=== PATIENT | female | born 1945 | race Two or more races ===

== ENCOUNTER 2020-07-01 10:25 | Outpatient (REF) | payer MEDICARE, SELFPAY ==
[2020-07-01 11:41] LABS: Hemoglobin 12.7 g/dl (12.0-16.0); Imm Gran Abs Auto 0.01 X10*3/uL (0.00-0.03); Imm Gran Pct Auto 0.2 % (0.0-0.4); MANUAL DIFF FLAG SCAN; Mean Corpuscular HGB Conc 31.8 g/dl (31.0-35.0); SCAN SMEAR FLAG 1
[2020-07-01 11:43] LABS: Basophils Absolute Auto 0.1 X10*3/uL (0.0-0.2); Eosinophils Absolute Auto 0.1 X10*3/uL (0.0-0.4); Eosinophils Percent Auto 2.1 % (0-4); Lymphocytes Percent Auto 51.9 % (20-40); Mean Corpuscular Hemoglobin 27.7 pg (27.0-33.0); Mean Corpuscular Volume 87.1 fL (80-98); Monocytes Absolute Auto 0.3 X10*3/uL (0.1-1.2); Monocytes Percent Auto 5.9 % (2-11); Neutrophils Absolute Auto 2.2 X10*3/uL (2.0-8.3); Neutrophils Percent Auto 38.9 % (45-73); PLT CLUMP 1; Red Blood Count 4.59 X10*6/uL (4.20-5.50)
[2020-07-01 11:47] LABS: Glucose Urine UA NEG (NEG); Leukocyte Esterase Urine 1+ (NEG); Nitrite Urine NEG (NEG); Specific Gravity - Urine 1.025 (1.005-1.025); UACC Culture Trigger YES; Urine Blood NEG (NEG); Urine Ketones NEG (NEG); Urine Protein NEG (NEG-TRACE)
[2020-07-01 11:52] LABS: Appearance Urine CLEAR; Color Urine YELLOW
[2020-07-01 11:54] LABS: Alanine Aminotransferase 20 U/L (0-31); Alkaline Phosphatase 156 U/L (39-117); Anion Gap 15 (12-20); Aspartate Amino Transferase 20 U/L (5-31); Bilirubin Total 0.5 mg/dL (0.0-1.0); Blood Urea Nitrogen 16 mg/dL (9-16); Carbon Dioxide 24 mmol/L (22-29); Chloride 106 mmol/L (96-108); Cholesterol 224 mg/dL; Estimated Glomerular Filt Rate > 60; Glucose Fasting 94 mg/dL (60-99); HDL Cholesterol 66 mg/dL; LDL Cholesterol Calculated 127 mg/dl; PLT ABN DIST 1; Potassium 4.2 mmol/L (3.3-5.1); Sodium 141 mmol/L (135-145); Triglycerides 156 mg/dL
[2020-07-01 12:13] LABS: Mucus Urine 1+ /LPF; RBC Urine 0 /HPF (0); Squamous Epithelial Cell Urine 1+ /LPF
[2020-07-01 12:14] LABS: TSH reflex Free T4 1.71 uIU/mL (0.32-4.0)
[2020-07-01 12:55] LABS: Platelet Count 114 X10*3/uL (160-400)
[2020-07-01 12:56] LABS: SLIDE REVIEW VERIFIED
[2020-07-01 13:25] LABS: Erythrocyte Sedimentation Rate 10 MM/HR (0-20)
[2020-07-01 14:22] LABS: White Blood Count 5.7 X10*3/uL (4.8-10.8)
[2020-07-04 04:14] LABS: Vitamin B12 415 pg/mL (200-900)
== END 2020-07-01 10:26 | disposition home or self-care (01) ==
LOC: HO.LAB 10:25
PROVIDERS: PCP Internal Medicine; Visit Provider Internal Medicine
DX: I10 Essential (primary) hypertension (principal); E78.00 Pure hypercholesterolemia, unspecified; G30.9 Alzheimer's disease, unspecified; G50.0 Trigeminal neuralgia; E66.9 Obesity, unspecified
CPT/HCPCS: 36415; 80053; 80061; 81001; 81003; 82607; 82746; 84443; 85025; 85652; 87086

== ENCOUNTER 2021-02-09 11:09 | Outpatient (REF) | payer MEDICARE, SELFPAY | END 2021-02-09 11:10 | disposition home or self-care (01) | LOC: HO.LAB 11:09 | PROVIDERS: PCP Internal Medicine; Visit Provider Internal Medicine | DX: Z20.822 Contact with and (suspected) exposure to COVID-19 (principal) | CPT/HCPCS: U0003; U0005 ==

== ENCOUNTER 2021-04-16 10:20 | Outpatient (REF) | payer MEDICARE, SELFPAY ==
[2021-04-16 10:30] LABS: MANUAL DIFF FLAG NO
[2021-04-16 10:43] LABS: Basophils Absolute Auto 0.1 X10*3/uL (0.0-0.2); Basophils Percent Auto 1.2 % (0-2); Eosinophils Absolute Auto 0.2 X10*3/uL (0.0-0.4); Eosinophils Percent Auto 3.6 % (0-4); Hematocrit 42.2 % (37.0-47.0); Hemoglobin 13.7 g/dl (12.0-16.0); Imm Gran Abs Auto 0.01 X10*3/uL (0.00-0.03); Imm Gran Pct Auto 0.2 % (0.0-0.4); Lymphocytes Absolute Auto 2.7 X10*3/uL (1.2-4.9); Mean Corpuscular HGB Conc 32.5 g/dl (31.0-35.0); Mean Corpuscular Volume 89.2 fL (80.0-98.0); Mean Platelet Volume 10.5 fL (9.4-12.3); Monocytes Absolute Auto 0.4 X10*3/uL (0.1-1.2); Monocytes Percent Auto 7.3 % (2-11); Neutrophils Absolute Auto 1.7 x10*3/uL (2.0-8.3); Neutrophils Percent Auto 33.7 % (45-73); Platelet Count 182 X10*3/uL (160-400); Red Blood Count 4.73 X10*6/uL (4.20-5.50); Red Cell Distribution Width 15.1 % (11.0-16.0); White Blood Count 5.1 X10*3/uL (4.8-10.8)
[2021-04-16 11:15] LABS: Alanine Aminotransferase 46 U/L (0-31); Alkaline Phosphatase 225 U/L (39-117); Anion Gap 15 (12-20); Aspartate Amino Transferase 25 U/L (5-31); Bilirubin Total 0.4 mg/dL (0.0-1.0); Blood Urea Nitrogen 12 mg/dL (9-16); Calcium 9.7 mg/dL (8.4-10.2); Carbon Dioxide 27 mmol/L (22-29); Chloride 105 mmol/L (96-108); Cholesterol 258 mg/dL; Estimated Glomerular Filt Rate > 60; Glucose Fasting 112 mg/dL (60-99); HDL Cholesterol 66 mg/dL; LDL Cholesterol Calculated 158 mg/dl; Potassium 4.5 mmol/L (3.3-5.1); Sodium 142 mmol/L (135-145); Total Protein 7.1 g/dL (6.5-8.0); Triglycerides 174 mg/dL
[2021-04-16 11:28] LABS: TSH reflex Free T4 3.01 uIU/mL (0.32-4.0)
[2021-04-16 11:54] LABS: Folate 12.4 ng/mL (> or = 4.0); Vitamin B12 395 pg/mL (200-900)
[2021-04-16 12:03] LABS: Appearance Urine HAZY; Color Urine YELLOW; Glucose Urine UA NEG (NEG); Leukocyte Esterase Urine TRACE (NEG); Nitrite Urine NEG (NEG); Specific Gravity - Urine 1.025 (1.005-1.025); UACC Culture Trigger YES; Urine Blood NEG (NEG); Urine Ketones NEG (NEG); Urine Protein TRACE MG/DL (NEG-TRACE)
[2021-04-16 12:22] LABS: Squamous Epithelial Cell Urine 2+ /LPF
[2021-04-16 12:23] LABS: Bacteria Urine TRACE /LPF; Mucus Urine TRACE /LPF; RBC Urine 0 /HPF (0)
== END 2021-04-16 10:21 | disposition home or self-care (01) ==
LOC: HO.LAB 10:20
PROVIDERS: PCP Internal Medicine; Visit Provider Internal Medicine
DX: G30.9 Alzheimer's disease, unspecified (principal); F02.80 Dementia in other diseases classified elsewhere, unspecified severity, without behavioral disturbance, psychotic disturbance, mood disturbance, and anxiety; I10 Essential (primary) hypertension; J30.9 Allergic rhinitis, unspecified; R60.0 Localized edema; E78.00 Pure hypercholesterolemia, unspecified
CPT/HCPCS: 36415; 80053; 80061; 81001; 81003; 82607; 82746; 84443; 85025; 87086

== ENCOUNTER 2021-05-27 08:17 | Outpatient (REF) | payer MEDICARE, SELFPAY ==
--- NOTE | ~2021-05-27 | US_ITS ---
EXAMINATION: US ABDOMEN COMPLETE CLINICAL INFORMATION: Unspecified abdominal pain. COMPARISON: Ultrasound abdomen complete 02/07/2019 and 07/07/2017. TECHNIQUE: Real-time imaging of the abdominal viscera. FINDINGS: PANCREAS: Partially visualized body and head of the pancreas is homogeneous in echotexture. The tail of the pancreas is not seen. ABDOMINAL AORTA: Limited visualization of the abdominal aorta due to overlying gas. The distal and the mid segment is normal caliber. INFERIOR VENA CAVA: Visualized portions are normal. LIVER: The liver is normal in size. The liver contour is normal. There is increased liver echogenicity. No focal hepatic lesion. There is no intrahepatic biliary duct dilatation seen. GALLBLADDER: Surgically absent. COMMON BILE DUCT: Normal in caliber measuring 0.8 cm in diameter. RIGHT KIDNEY: Normal. No hydronephrosis. No renal calculi or focal parenchymal lesions. The kidney measures 9.3 cm in maximum dimension. LEFT KIDNEY: Normal. No hydronephrosis. No renal calculi or focal parenchymal lesions. The kidney measures 11.2 cm in maximum dimension. SPLEEN: Normal. The spleen measures 8.4 cm in maximum dimension. FREE FLUID: None. US/US abdomen complete IMPRESSION: Mild hepatic steatosis without focal lesion. Limited visualization of the pancreas reveals unremarkable body and the head of the pancreas. Similarly, the mid and the distal segment of the abdominal aorta is normal. The rest of the abdominal ultrasound is unremarkable.
== END 2021-05-27 08:18 | disposition home or self-care (01) ==
LOC: HO.US 08:17
PROVIDERS: Visit Provider Internal Medicine
DX: R10.9 Unspecified abdominal pain (principal)
CPT/HCPCS: 76700

== ENCOUNTER 2021-08-04 10:32 | Outpatient (REF) | payer MEDICARE, SELFPAY ==
[2021-08-04 10:46] LABS: MANUAL DIFF FLAG NO
[2021-08-04 11:01] LABS: Basophils Absolute Auto 0.1 X10*3/uL (0.0-0.2); Eosinophils Absolute Auto 0.3 X10*3/uL (0.0-0.4); Eosinophils Percent Auto 4.1 % (0-4); Hematocrit 40.7 % (37.0-47.0); Hemoglobin 12.9 g/dl (12.0-16.0); Imm Gran Abs Auto 0.02 X10*3/uL (0.00-0.03); Imm Gran Pct Auto 0.3 % (0.0-0.4); Lymphocytes Absolute Auto 3.1 X10*3/uL (1.2-4.9); Lymphocytes Percent Auto 50.9 % (20-40); Mean Corpuscular HGB Conc 31.7 g/dl (31.0-35.0); Mean Corpuscular Volume 88.5 fL (80.0-98.0); Mean Platelet Volume 10.6 fL (9.4-12.3); Monocytes Absolute Auto 0.3 X10*3/uL (0.1-1.2); Monocytes Percent Auto 5.1 % (2-11); Neutrophils Absolute Auto 2.3 x10*3/uL (2.0-8.3); Neutrophils Percent Auto 38.6 % (45-73); Platelet Count 200 X10*3/uL (160-400); Red Cell Distribution Width 14.5 % (11.0-16.0); White Blood Count 6.1 X10*3/uL (4.8-10.8)
[2021-08-04 11:58] LABS: Alanine Aminotransferase 53 U/L (0-31); Albumin Level 4.1 g/dL (3.5-5.0); Alkaline Phosphatase 204 U/L (39-117); Anion Gap 13 (12-20); Aspartate Amino Transferase 42 U/L (5-31); Bilirubin Total 0.4 mg/dL (0.0-1.0); Blood Urea Nitrogen 10 mg/dL (9-16); Calcium 9.5 mg/dL (8.4-10.2); Carbon Dioxide 29 mmol/L (22-29); Chloride 105 mmol/L (96-108); Cholesterol 238 mg/dL; Estimated Glomerular Filt Rate > 60; Glucose Fasting 107 mg/dL (60-99); HDL Cholesterol 65 mg/dL; LDL Cholesterol Calculated 134 mg/dl; Potassium 4.3 mmol/L (3.3-5.1); Sodium 143 mmol/L (135-145); Total Protein 7.2 g/dL (6.5-8.0); Triglycerides 198 mg/dL
[2021-08-04 12:22] LABS: TSH reflex Free T4 1.65 uIU/mL (0.32-4.0); Vitamin D 25-OH Total 24.2 ng/mL (>30)
[2021-08-04 12:41] LABS: Appearance Urine HAZY; Color Urine YELLOW; Glucose Urine UA NEG (NEG); Leukocyte Esterase Urine 2+ (NEG); Nitrite Urine NEG (NEG); Specific Gravity - Urine 1.025 (1.005-1.025); UACC Culture Trigger YES; Urine Blood TRACE (NEG); Urine Ketones NEG (NEG); Urine Protein NEG (NEG-TRACE)
[2021-08-04 12:58] LABS: Bacteria Urine 2+ /LPF; RBC Urine 0 /HPF (0); Squamous Epithelial Cell Urine 3+ /LPF
== END 2021-08-04 10:33 | disposition home or self-care (01) ==
LOC: HO.LAB 10:32
PROVIDERS: PCP Internal Medicine; Visit Provider Internal Medicine
DX: E78.00 Pure hypercholesterolemia, unspecified (principal); E55.9 Vitamin D deficiency, unspecified; I10 Essential (primary) hypertension
CPT/HCPCS: 36415; 80053; 80061; 81001; 82306; 84443; 85025; 87086

== ENCOUNTER 2021-10-26 16:01 | Outpatient (REF) | payer MEDICARE, SELFPAY ==
--- NOTE | ~2021-10-26 | MM_ITS ---
EXAMINATION: MM SCREENING DIGITAL BREAST TOMOSYNTHESIS, BILATERAL CLINICAL INFORMATION: Screening. Asymptomatic. The lifetime risk of breast cancer based on the Tyrer-Cuzick Model is 4%. COMPARISON: Mammography: 08/08/2018, 07/07/2017, 04/07/2016, 05/14/2013 TECHNIQUE: Digital breast tomosynthesis is performed in both the craniocaudal and mediolateral oblique views along with computer-aided detection (CAD). Synthesized 2D images are generated from the tomosynthesis. FINDINGS: There are scattered areas of fibroglandular density (ACR BI-RADS breast composition Category b). There is diffuse bilateral fibronodular parenchymal pattern with minor stable asymmetries, similar to prior exams. There is no developing density or architectural abnormality. No abnormal calcifications. The axilla and skin contours are unremarkable. MM/MM tomosynthesis screening BI IMPRESSION: No mammographic evidence of malignancy. ASSESSMENT: BI-RADS 2: Benign RECOMMENDATION: Routine annual mammography screening. This patient's information was entered into a reminder system with a target due date for their next mammogram.
== END 2021-10-26 16:02 | disposition home or self-care (01) ==
LOC: HO.MAMMO 16:01
PROVIDERS: PCP Internal Medicine; Visit Provider Internal Medicine
DX: Z12.31 Encounter for screening mammogram for malignant neoplasm of breast (principal)
CPT/HCPCS: 77063; 77067

== ENCOUNTER 2021-11-12 09:40 | Outpatient (REF) | payer OTHER, SELFPAY ==
[2021-11-12 10:04] LABS: MANUAL DIFF FLAG NO
[2021-11-12 10:27] LABS: Basophils Absolute Auto 0.1 X10*3/uL (0.0-0.2); Eosinophils Absolute Auto 0.1 X10*3/uL (0.0-0.4); Eosinophils Percent Auto 1.7 % (0-4); Hematocrit 39.5 % (37.0-47.0); Hemoglobin 12.6 g/dl (12.0-16.0); Imm Gran Abs Auto 0.01 X10*3/uL (0.00-0.03); Imm Gran Pct Auto 0.2 % (0.0-0.4); Lymphocytes Absolute Auto 3.1 X10*3/uL (1.2-4.9); Lymphocytes Percent Auto 59.8 % (20-40); Mean Corpuscular HGB Conc 31.9 g/dl (31.0-35.0); Mean Corpuscular Hemoglobin 28.1 pg (27.0-33.0); Mean Corpuscular Volume 88.2 fL (80.0-98.0); Mean Platelet Volume 11.7 fL (9.4-12.3); Monocytes Absolute Auto 0.3 X10*3/uL (0.1-1.2); Monocytes Percent Auto 5.9 % (2-11); Neutrophils Absolute Auto 1.6 x10*3/uL (2.0-8.3); Neutrophils Percent Auto 31.4 % (45-73); Platelet Count 164 X10*3/uL (160-400); Red Blood Count 4.48 X10*6/uL (4.20-5.50); White Blood Count 5.2 X10*3/uL (4.8-10.8)
[2021-11-12 11:08] LABS: Alanine Aminotransferase 27 U/L (0-31); Alkaline Phosphatase 171 U/L (39-117); Anion Gap 11 (12-20); Aspartate Amino Transferase 20 U/L (5-31); Bilirubin Total 0.5 mg/dL (0.0-1.0); Blood Urea Nitrogen 14 mg/dL (9-16); Calcium 9.3 mg/dL (8.4-10.2); Carbon Dioxide 27 mmol/L (22-29); Chloride 107 mmol/L (96-108); Cholesterol 256 mg/dL; Estimated Glomerular Filt Rate > 60; Glucose Fasting 111 mg/dL (60-99); HDL Cholesterol 67 mg/dL; LDL Cholesterol Calculated 156 mg/dl; Potassium 4.2 mmol/L (3.3-5.1); Sodium 141 mmol/L (135-145); Total Protein 6.8 g/dL (6.5-8.0); Triglycerides 165 mg/dL
[2021-11-12 11:35] LABS: Folate 8.9 ng/mL (> or = 4.0); Vitamin B12 274 pg/mL (200-900)
[2021-11-12 11:56] LABS: Appearance Urine HAZY; Color Urine YELLOW; Glucose Urine UA NEG (NEG); Leukocyte Esterase Urine 3+ (NEG); Nitrite Urine NEG (NEG); PH 5.5 (5.0-8.0); UACC Culture Trigger YES; Urine Blood TRACE (NEG); Urine Ketones NEG (NEG); Urine Protein NEG (NEG-TRACE)
[2021-11-12 13:19] LABS: Bacteria Urine 1+ /LPF; Squamous Epithelial Cell Urine 3+ /LPF
[2021-11-12 13:20] LABS: RBC Urine 0-2 /HPF (0)
== END 2021-11-12 09:41 | disposition home or self-care (01) ==
LOC: HO.LAB 09:40
PROVIDERS: PCP Internal Medicine; Visit Provider Internal Medicine
DX: E78.00 Pure hypercholesterolemia, unspecified (principal); E55.9 Vitamin D deficiency, unspecified; E53.8 Deficiency of other specified B group vitamins; I10 Essential (primary) hypertension
CPT/HCPCS: 36415; 80053; 80061; 81001; 81003; 82306; 82607; 82746; 85025; 87086

== ENCOUNTER 2021-12-30 19:13 | Emergency (ER) | payer OTHER, SELFPAY ==
--- NOTE | 2021-12-30 | ECG_ITS ---
Test Reason : DIZZINESS Blood Pressure : / mmHG Vent. Rate : 070 BPM Atrial Rate : 070 BPM P-R Int : 162 ms QRS Dur : 078 ms QT Int : 402 ms P-R-T Axes : 044 000 014 degrees QTc Int : 434 ms Normal sinus rhythm Normal ECG When compared with ECG of 05-FEB-2019 18:09, No significant change was found Referred By: Generic ED Physician Electronically Signed By:ROSIBEL SAINI
[2021-12-30 19:25] VITALS: BP 164/79; PULSE 72; RESP 24; TEMP 36.7; O2SAT 97; BMI 33.4
[2021-12-30 19:34] VITALS: BP 175/91; PULSE 73; O2SAT 98
[2021-12-30 20:21] VITALS: BP 166/69; PULSE 67; RESP 18; O2SAT 99
--- NOTE | 2021-12-30 20:27 | ED_ITS ---
HPI - Dizziness General Chief Complaint: Dizziness Stated Complaint: dizziness Time Seen by Provider: 12/30/21 20:26 Source: patient Mode of arrival: ambulatory Limitations: no limitations History of Present Illness HPI Narrative: Patient is 76 years old history of asthma hypertension trigeminal neuralgia followed by Neurology [facility] had MRI on 12/24 of the brain which was negative comes here for sudden onset of dizziness for last 4 days got worse yesterday so started suddenly with head movement feeling and off balance with nausea and ringing in the right ear patient vomited once yesterday no focal weakness no dysarthria or diplopia patient never had similar complaints in the past. patient also complaining of frequency no flank pain or abdominal pain for last few days Related Data Home Medications Medication Instructions Recorded Confirmed rosuvastatin 5 mg tablet 5 mg PO DAILY 04/09/20 11/10/21 miscellaneous medical supply ea miscellaneous 10/27/21 11/10/21 miscellaneous medical supply ea miscellaneous 10/27/21 11/10/21 Previous Rx's Medication Instructions Recorded ezetimibe 10 mg tablet 10 mg PO DAILY 90 days #90 tabs 02/12/21 omeprazole 20 mg capsule,delayed 20 mg PO DAILY 90 days #90 caps 02/12/21 release oxybutynin chloride 10 mg 10 mg PO DAILY 90 days #90 tabs 02/12/21 tablet,extended release 24 hr metoprolol tartrate 25 mg tablet 25 mg PO BID 30 days #60 tabs 03/23/21 albuterol sulfate 90 mcg/actuation 2 puff inhalation Q6H PRN 09/03/21 aerosol inhaler shortness of breath or wheezing #8.5 grams cyclobenzaprine 5 mg tablet 5 mg PO TID muscle spasms/ TMJ 09/03/21 pain 30 days #90 tabs fluticasone propionate 50 1 spray intranasal DAILY #15.8 mL 11/10/21 mcg/actuation nasal spray,suspension BACK BRACE #1 ea 11/13/21 QUAD CANE #1 ea 11/13/21 aspirin 81 mg tablet,delayed 81 mg PO DAILY #28 tabs 11/18/21 release cetirizine 10 mg tablet 10 mg PO DAILY #28 tabs 11/18/21 cholecalciferol (vitamin D3) 25 25 mcg PO DAILY #28 tabs 11/18/21 mcg (1,000 unit) tablet gabapentin 400 mg capsule 400 mg PO TID #84 caps 11/18/21 hydrochlorothiazide 25 mg tablet 25 mg PO DAILY #28 tabs 11/18/21 losartan 50 mg tablet 75 mg PO DAILY #42 tabs 11/18/21 carbamazepine 200 mg tablet 200 mg PO BID #56 tabs 12/19/21 cefuroxime axetil 500 mg tablet 500 mg PO BID 7 days #14 tabs 12/30/21 meclizine 25 mg tablet 25 mg PO TID PRN dizziness #20 tabs 12/30/21 Allergies Allergy/AdvReac Type Severity Reaction Status Date / Time aspirin AdvReac Unknown stomach Verified 11/10/21 16:41 upset atorvastatin AdvReac Unknown significantly Verified 11/10/21 16:41 elevated LFTs Review of Systems Review of Systems: Yes all other systems are reviewed and are negative [facility] Past Medical History Medical History Allergic rhinitis Alzheimer's dementia Asthma Benign essential hypertension Bilateral lower extremity edema Obesity (BMI 30-39.9) Pure hypercholesterolemia Trigeminal neuralgia Surgical History History of arthroplasty of left knee History of arthroplasty of right knee History of bladder surgery History of cholecystectomy History of surgery History of tubal ligation Family History Family History Father Asthma Mother Colon cancer Sister Breast cancer Social History Social History Housing: Apartment Alcohol intake: never Patient Tobacco Use Status: Never used Tobacco Second Hand Smoke Exposure: Yes Advance Directives: No Advance Directives Information Provided: No service: No Current occupational status: disabled Cognitive needs: No Hearing needs: No Vision needs: Yes Physical Exam Vital Signs: Vital Signs: Last Vital Signs Temp 98.0 F 12/30/21 22:49 Pulse 70 12/30/21 22:49 Resp 20 12/30/21 22:49 BP 162/77 H 12/30/21 22:49 Pulse Ox 96 12/30/21 22:49 O2 Del Method 12/30/21 22:49 BMI result Body Mass Index 33.4 Appearance: Alert. Oriented X3. No acute distress. Eyes: PERRLA, No Nystagmus ENT: Pharynx normal. Oral Mucosa moist Neck: Normal inspection. Neck supple. CVS: Normal heart rate and rhythm. Pulses normal. Respiratory: No respiratory distress. Equal air entry bilateral, no wheezing/rales/rhonchi Abdomen: Soft and nontender. Bowel sounds are present, no mass palpable, no CVA tenderness Skin: Skin warm and dry. Normal skin color. Normal skin turgor. Extremities: No lower extremity edema. No calf tenderness Neuro: Oriented X 3. No motor deficit. No sensory deficit.No cerebellar signs , cranial nerves II-XII intact MDM - Dizziness MDM Narrative Medical decision making narrative: Patient's recent MRI negative symptoms a vertiginous feeling without any d ysarthria or diplopia or focal neurological deficit likely benign positional vertigo patient does have tinnitus also also patient has frequency workup showed UTI discharge patient home on Ceftin meclizine patient felt better after medications he was able to ambulate in the ER without significant imb alance/attacks Differential Diagnosis Differential diagnosis: Likely benign paroxysmal positional vertigo Lab Data Attestation: I reviewed the patient's lab results. Result diagrams: 12/30/21 21:14 12/30/21 21:14 Labs: Lab Results 12/30/21 12/30/21 12/30/21 Range/Units 20:23 21:14 21:14 WBC 6.1 (4.8-10.8) X10*3/uL RBC 4.58 (4.20-5.50) X10*6/uL Hgb 12.7 (12.0-16.0) g/dl Hct 39.5 (37.0-47.0) % MCV 86.2 (80.0-98.0) fL MCH 27.7 (27.0-33.0) pg MCHC 32.2 (31.0-35.0) g/dl RDW 14.7 (11.0-16.0) % Plt Count 178 (160-400) X10*3/uL MPV 11.2 (9.4-12.3) fL Immature Gran % (Auto) 0.2 (0.0-0.4) % Neut % (Auto) 42.3 L (45-73) % Lymph % (Auto) 48.6 H (20-40) % [place] % (Auto) 6.6 (2-11) % Eos % (Auto) 1.5 (0-4) % Baso % (Auto) 0.8 (0-2) % Lymph # (Auto) 3.0 (1.2-4.9) X10*3/uL [place] # (Auto) 0.4 (0.1-1.2) X10*3/uL Eos # (Auto) 0.1 (0.0-0.4) X10*3/uL Baso # (Auto) 0.1 (0.0-0.2) X10*3/uL Abs Immat Gran (auto) 0.01 (0.00-0.03) X10*3/uL Absolute Neuts (auto) 2.6 (2.0-8.3) x10*3/uL Absolute Nucleated RBC 0.000 (0.0-0.012) X10*3/uL Nucleated RBC % (auto) 0.0 (0.0-0.2) /100WBC Sodium 143 (135-145) mmol/L Potassium 4.0 (3.3-5.1) mmol/L Chloride 104 (96-108) mmol/L Carbon Dioxide 29 (22-29) mmol/L Anion Gap 14 (12-20) BUN 15 (9-16) mg/dL Creatinine 0.92 (0.5-1.4) mg/dL Estim Creat Clear Calc 58.1 Estimated GFR 59 Random Glucose 110 (60-115) mg/dL Calcium 9.4 (8.4-10.2) mg/dL Total Bilirubin 0.3 (0.0-1.0) mg/dL AST 17 (5-31) U/L ALT 15 (0-31) U/L Alkaline Phosphatase 144 H (39-117) U/L Total Protein 6.9 (6.5-8.0) g/dL Albumin 4.0 (3.5-5.0) g/dL Urine Color Yellow Urine Appearance Clear Urine pH 7.5 (5.0-8.0) Ur Specific [place] 1.010 (1.005-1.025) Urine Protein Negative (Neg-Trace) mg/dL Urine Glucose (UA) Negative (Negative) mg/dL Urine Ketones Negative (Negative) mg/dL Urine Blood Negative (Negative) Urine Nitrite Negative (Negative) Ur Leukocyte Esterase Moderate (2+) H (Negative) Urine RBC 0-2 (0-2) /HPF Urine WBC 6-10 H (0-5) /HPF Ur Squamous Epith Cells 3-5 (0-2) /HPF Urine Bacteria Trace (None Seen) Hyaline Casts 0-2 (0-2) /LPF ECG Data Attestation: I personally reviewed and interpreted this ECG as follows: Interpretation: Normal sinus rhythm heart rate 70 beats per minute normal intervals normal axis no acute ST-T changes Discharge Plan Discharge Clinical Impression: Benign paroxysmal positional vertigo, UTI (urinary tract infection) Patient Disposition: Home, Self-Care Instructions: Urinary Tract Infection in Women (ED), Benign Paroxysmal Posit ional Vertigo (ED) Additional Instructions: Drink plenty of fluids Take medication for dizziness as prescribed Care and cautious as advised Antibiotic for urinary tract infection Follow-up with PCP Beber mucho l?quido [place] la medicaci?n para los mareos seg?n lo prescrito Cuidado y cautela norma se recomienda Antibi?shana para la infecci?n del tracto urinario Seguimiento con PCP Prescriptions: New cefuroxime axetil 500 mg tablet 500 mg PO BID 7 Days Qty: 14 0RF meclizine 25 mg tablet 25 mg PO TID PRN (Reason: dizziness) Qty: 20 0RF No Action ezetimibe 10 mg tablet 10 mg PO DAILY 90 Days Qty: 90 3RF omeprazole 20 mg capsule,delayed release(DR/EC) 20 mg PO DAILY 90 Days Qty: 90 5RF oxybutynin chloride 10 mg tablet extended release 24hr 10 mg PO DAILY 90 Days Qty: 90 3RF metoprolol tartrate 25 mg tablet 25 mg PO BID 30 Days Qty: 60 12RF miscellaneous medical supply Misc miscellaneous Rx Instructions: Quad Cane miscellaneous medical supply Misc miscellaneous Rx Instructions: Back Brace (DME) BACK BRACE See Rx Instructions .Route .MEDSUPPLY Qty: 1 0RF Rx Instructions: As directed (DME) QUAD CANE See Rx Instructions .Route .MEDSUPPLY Qty: 1 0RF Rx Instructions: As directed cholecalciferol (vitamin D3) 25 mcg (1,000 unit) tablet 25 mcg PO DAILY Qty: 28 2RF hydrochlorothiazide 25 mg tablet 25 mg PO DAILY Qty: 28 2RF aspirin 81 mg tablet,delayed release (DR/EC) 81 mg PO DAILY Qty: 28 2RF cetirizine 10 mg tablet 10 mg PO DAILY Qty: 28 2RF losartan 50 mg tablet 75 mg PO DAILY Qty: 42 2RF gabapentin 400 mg capsule 400 mg PO TID Qty: 84 2RF carbamazepine 200 mg tablet 200 mg PO BID Qty: 56 1RF rosuvastatin 5 mg tablet 5 mg PO DAILY fluticasone propionate 50 mcg/actuation spray,suspension 1 spray intranasal DAILY Qty: 15.8 3RF Rx Instructions: administer into each nostril albuterol sulfate 90 mcg/actuation HFA aerosol inhaler 2 puff inhalation Q6H PRN (Reason: shortness of breath or wheezing) Qty: 8.5 1RF cyclobenzaprine 5 mg tablet 5 mg PO TID 30 Days Qty: 90 0RF Print Language: German
[2021-12-30 20:33] LABS: Appearance Urine Clear; Color Urine Yellow; Glucose Urine UA Negative (Negative); Leukocyte Esterase Urine Moderate (2+) (Negative); Nitrite Urine Negative (Negative); PH 7.5 (5.0-8.0); Urine Blood Negative (Negative); Urine Ketones Negative (Negative); Urine Protein Negative (Neg-Trace)
[2021-12-30 20:43] LABS: UACC Culture Trigger YES
[2021-12-30 20:44] LABS: Bacteria Urine Trace (None Seen); Hyaline Casts Urine 0-2 /LPF (0-2); RBC Urine 0-2 /HPF (0-2)
[2021-12-30] MEDS: Meclizine HCl 25 MG TABLET 50 MG PO (21:16)
[2021-12-30] MEDS: LORazepam 1 MG TABLET PO (21:17)
[2021-12-30 21:19] LABS: MANUAL DIFF FLAG NO
[2021-12-30 21:20] LABS: Basophils Absolute Auto 0.1 X10*3/uL (0.0-0.2); Basophils Percent Auto 0.8 % (0-2); Eosinophils Absolute Auto 0.1 X10*3/uL (0.0-0.4); Eosinophils Percent Auto 1.5 % (0-4); Hematocrit 39.5 % (37.0-47.0); Hemoglobin 12.7 g/dl (12.0-16.0); Imm Gran Abs Auto 0.01 X10*3/uL (0.00-0.03); Imm Gran Pct Auto 0.2 % (0.0-0.4); Lymphocytes Percent Auto 48.6 % (20-40); Mean Corpuscular HGB Conc 32.2 g/dl (31.0-35.0); Mean Corpuscular Hemoglobin 27.7 pg (27.0-33.0); Mean Corpuscular Volume 86.2 fL (80.0-98.0); Mean Platelet Volume 11.2 fL (9.4-12.3); Monocytes Absolute Auto 0.4 X10*3/uL (0.1-1.2); Monocytes Percent Auto 6.6 % (2-11); Neutrophils Absolute Auto 2.6 x10*3/uL (2.0-8.3); Neutrophils Percent Auto 42.3 % (45-73); Platelet Count 178 X10*3/uL (160-400); Red Blood Count 4.58 X10*6/uL (4.20-5.50); Red Cell Distribution Width 14.7 % (11.0-16.0); White Blood Count 6.1 X10*3/uL (4.8-10.8)
[2021-12-30 21:53] LABS: Alanine Aminotransferase 15 U/L (0-31); Alkaline Phosphatase 144 U/L (39-117); Anion Gap 14 (12-20); Aspartate Amino Transferase 17 U/L (5-31); Bilirubin Total 0.3 mg/dL (0.0-1.0); Blood Urea Nitrogen 15 mg/dL (9-16); Calcium 9.4 mg/dL (8.4-10.2); Carbon Dioxide 29 mmol/L (22-29); Chloride 104 mmol/L (96-108); Creatinine Clr Calc Pharmacy 58.1; Estimated Glomerular Filt Rate 59; Glucose Random 110 mg/dL (60-115); Sodium 143 mmol/L (135-145); Total Protein 6.9 g/dL (6.5-8.0)
[2021-12-30 22:49] VITALS: BP 162/77; PULSE 70; RESP 20; TEMP 36.7; O2SAT 96
[2021-12-30 23:19] VITALS: BP 161/86; PULSE 67; RESP 23; O2SAT 96
== END 2021-12-30 23:37 | disposition home or self-care (01) ==
PROVIDERS: Emergency Provider Internal Medicine; PCP Internal Medicine
DX: H81.13 Benign paroxysmal vertigo, bilateral (principal); N39.0 Urinary tract infection, site not specified; Z79.899 Other long term (current) drug therapy
CPT/HCPCS: 36415; 80053; 81001; 85025; 87086; 93005; 99283; 99284

== ENCOUNTER 2022-02-08 11:37 | Outpatient (REF) | payer OTHER, SELFPAY ==
[2022-02-08 11:57] LABS: MANUAL DIFF FLAG NO
[2022-02-08 12:21] LABS: Basophils Absolute Auto 0.1 X10*3/uL (0.0-0.2); Basophils Percent Auto 0.9 % (0-2); Eosinophils Absolute Auto 0.2 X10*3/uL (0.0-0.4); Eosinophils Percent Auto 2.7 % (0-4); Hematocrit 40.7 % (37.0-47.0); Hemoglobin 13.2 g/dl (12.0-16.0); Imm Gran Abs Auto 0.01 X10*3/uL (0.00-0.03); Imm Gran Pct Auto 0.2 % (0.0-0.4); Lymphocytes Absolute Auto 2.8 X10*3/uL (1.2-4.9); Lymphocytes Percent Auto 48.8 % (20-40); Mean Corpuscular HGB Conc 32.4 g/dl (31.0-35.0); Mean Corpuscular Hemoglobin 28.1 pg (27.0-33.0); Mean Corpuscular Volume 86.6 fL (80.0-98.0); Monocytes Absolute Auto 0.3 X10*3/uL (0.1-1.2); Monocytes Percent Auto 4.6 % (2-11); Neutrophils Absolute Auto 2.4 x10*3/uL (2.0-8.3); Neutrophils Percent Auto 42.8 % (45-73); White Blood Count 5.7 X10*3/uL (4.8-10.8)
[2022-02-08 12:48] LABS: Alanine Aminotransferase 26 U/L (0-31); Albumin Level 4.2 g/dL (3.5-5.0); Alkaline Phosphatase 163 U/L (39-117); Anion Gap 17 (12-20); Aspartate Amino Transferase 25 U/L (5-31); Bilirubin Total 0.3 mg/dL (0.0-1.0); Blood Urea Nitrogen 16 mg/dL (9-16); Calcium 9.6 mg/dL (8.4-10.2); Carbon Dioxide 24 mmol/L (22-29); Chloride 104 mmol/L (96-108); Cholesterol 237 mg/dL; Estimated Average Glucose 126 mg/dL; Estimated Glomerular Filt Rate > 60; Glucose Fasting 107 mg/dL (60-99); HDL Cholesterol 71 mg/dL; LDL Cholesterol Calculated 141 mg/dl; Potassium 4.4 mmol/L (3.3-5.1); Sodium 141 mmol/L (135-145); Total Protein 7.2 g/dL (6.5-8.0); Triglycerides 127 mg/dL
[2022-02-08 13:09] LABS: TSH reflex Free T4 1.59 uIU/mL (0.32-4.0); Vitamin D 25-OH Total 28.5 ng/mL (>30)
[2022-02-08 13:17] LABS: Mean Platelet Volume 12.2 fL (9.4-12.3); Platelet Count 168 X10*3/uL (160-400)
[2022-02-08 13:37] LABS: Appearance Urine Cloudy; Color Urine Dark Yellow; Glucose Urine UA Negative (Negative); Leukocyte Esterase Urine Moderate (2+) (Negative); Nitrite Urine Negative (Negative); PH 5.5 (5.0-9.0); Specific Gravity - Urine 1.025 (1.005-1.025); UMIC TRIGGER UACC YES; Urine Blood Negative (Negative); Urine Ketones Trace mg/dL (Negative); Urine Protein Trace mg/dL (Neg-Trace)
[2022-02-08 13:47] LABS: Bacteria Urine 1+ (None Seen); Hyaline Casts Urine 0-2 /LPF (0-2); Squamous Epithelial Cell Urine >20 /HPF (0-2); UACC Culture Trigger YES; WBC Urine 21-50 /HPF (0-5)
== END 2022-02-08 11:38 | disposition home or self-care (01) ==
LOC: HO.LAB 11:37
PROVIDERS: PCP Internal Medicine; Visit Provider Internal Medicine
DX: E78.00 Pure hypercholesterolemia, unspecified (principal); E11.9 Type 2 diabetes mellitus without complications; E55.9 Vitamin D deficiency, unspecified; I10 Essential (primary) hypertension
CPT/HCPCS: 36415; 80053; 80061; 81001; 82306; 83036; 84443; 85025; 87086

== ENCOUNTER 2022-06-03 09:52 | Outpatient (REF) | payer OTHER, SELFPAY ==
[2022-06-03 10:05] LABS: MANUAL DIFF FLAG NO
[2022-06-03 10:36] LABS: Appearance Urine Cloudy; Color Urine Yellow; Glucose Urine UA Negative (Negative); Leukocyte Esterase Urine Moderate (2+) (Negative); Nitrite Urine Negative (Negative); PH 5.5 (5.0-9.0); Specific Gravity - Urine 1.025 (1.005-1.025); UMIC TRIGGER UACC YES; Urine Blood Trace (Negative); Urine Ketones Negative (Negative); Urine Protein Trace mg/dL (Neg-Trace)
[2022-06-03 10:40] LABS: Basophils Absolute Auto 0.1 X10*3/uL (0.0-0.2); Basophils Percent Auto 0.8 % (0-2); Eosinophils Absolute Auto 0.3 X10*3/uL (0.0-0.4); Eosinophils Percent Auto 4.7 % (0-4); Hematocrit 39.1 % (37.0-47.0); Hemoglobin 12.5 g/dl (12.0-16.0); Imm Gran Abs Auto 0.01 X10*3/uL (0.00-0.03); Imm Gran Pct Auto 0.2 % (0.0-0.4); Lymphocytes Percent Auto 48.1 % (20-40); Mean Corpuscular Hemoglobin 27.6 pg (27.0-33.0); Mean Corpuscular Volume 86.3 fL (80.0-98.0); Monocytes Absolute Auto 0.3 X10*3/uL (0.1-1.2); Monocytes Percent Auto 5.5 % (2-11); Neutrophils Absolute Auto 2.5 x10*3/uL (2.0-8.3); Neutrophils Percent Auto 40.7 % (45-73); Platelet Count 155 X10*3/uL (160-400); Red Blood Count 4.53 X10*6/uL (4.20-5.50); Red Cell Distribution Width 14.5 % (11.0-16.0); White Blood Count 6.1 X10*3/uL (4.8-10.8)
[2022-06-03 10:40] LABS: Bacteria Urine 1+ (None Seen); Hyaline Casts Urine 0-2 /LPF (0-2); UACC Culture Trigger YES; WBC Urine >50 /HPF (0-5)
[2022-06-03 11:13] LABS: Estimated Average Glucose 120 mg/dL; Hemoglobin A1c % 5.8 %
[2022-06-03 11:23] LABS: Alanine Aminotransferase 17 U/L (0-31); Albumin Level 4.1 g/dL (3.5-5.0); Alkaline Phosphatase 136 U/L (39-117); Anion Gap 13 (12-20); Aspartate Amino Transferase 18 U/L (5-31); Bilirubin Total 0.5 mg/dL (0.0-1.0); Blood Urea Nitrogen 17 mg/dL (9-16); Calcium 9.6 mg/dL (8.4-10.2); Carbon Dioxide 25 mmol/L (22-29); Chloride 106 mmol/L (96-108); Cholesterol 201 mg/dL; Estimated Glomerular Filt Rate > 60; Glucose Fasting 101 mg/dL (60-99); HDL Cholesterol 67 mg/dL; LDL Cholesterol Calculated 117 mg/dl; Potassium 3.9 mmol/L (3.3-5.1); Sodium 140 mmol/L (135-145); Total Protein 6.9 g/dL (6.5-8.0); Triglycerides 85 mg/dL
[2022-06-03 11:47] LABS: TSH reflex Free T4 3.03 uIU/mL (0.32-4.0); Vitamin D 25-OH Total 28.3 ng/mL (>30)
== END 2022-06-03 09:53 | disposition home or self-care (01) ==
LOC: HO.LAB 09:52
PROVIDERS: PCP Internal Medicine; Visit Provider Internal Medicine
DX: E55.9 Vitamin D deficiency, unspecified (principal); R30.0 Dysuria; E78.00 Pure hypercholesterolemia, unspecified; E11.9 Type 2 diabetes mellitus without complications; I10 Essential (primary) hypertension
CPT/HCPCS: 36415; 80053; 80061; 81001; 82306; 83036; 84443; 85025; 87086

== ENCOUNTER 2022-12-07 10:48 | Outpatient (REF) | payer OTHER, SELFPAY ==
[2022-12-07 11:14] LABS: MANUAL DIFF FLAG NO
[2022-12-07 11:48] LABS: Appearance Urine Cloudy; Color Urine Yellow; Glucose Urine UA Negative (Negative); Leukocyte Esterase Urine Moderate (2+) (Negative); Nitrite Urine Negative (Negative); PH 5.5 (5.0-9.0); Specific Gravity - Urine 1.025 (1.005-1.025); UMIC TRIGGER UACC YES; Urine Blood Negative (Negative); Urine Ketones Negative (Negative); Urine Protein Negative (Neg-Trace)
[2022-12-07 11:50] LABS: Basophils Absolute Auto 0.1 X10*3/uL (0.0-0.2); Basophils Percent Auto 1.1 % (0-2); Eosinophils Absolute Auto 0.2 X10*3/uL (0.0-0.4); Eosinophils Percent Auto 4.4 % (0-4); Hematocrit 39.7 % (37.0-47.0); Hemoglobin 12.5 g/dl (12.0-16.0); Imm Gran Abs Auto 0.02 X10*3/uL (0.00-0.03); Imm Gran Pct Auto 0.4 % (0.0-0.4); Lymphocytes Absolute Auto 2.7 X10*3/uL (1.2-4.9); Lymphocytes Percent Auto 51.7 % (20-40); Mean Corpuscular HGB Conc 31.5 g/dl (31.0-35.0); Mean Corpuscular Volume 88.8 fL (80.0-98.0); Mean Platelet Volume 12.1 fL (9.4-12.3); Monocytes Absolute Auto 0.3 X10*3/uL (0.1-1.2); Monocytes Percent Auto 5.1 % (2-11); Neutrophils Percent Auto 37.3 % (45-73); Platelet Count 147 X10*3/uL (160-400); Red Blood Count 4.47 X10*6/uL (4.20-5.50); Red Cell Distribution Width 14.8 % (11.0-16.0); White Blood Count 5.3 X10*3/uL (4.8-10.8)
[2022-12-07 11:57] LABS: Estimated Average Glucose 117 mg/dL; Hemoglobin A1c % 5.7 %
[2022-12-07 12:51] LABS: Bacteria Urine 1+ (None Seen); Hyaline Casts Urine 0-2 /LPF (0-2); UACC Culture Trigger YES; WBC Urine 21-50 /HPF (0-5)
[2022-12-07 13:02] LABS: Alanine Aminotransferase 22 U/L (0-31); Albumin Level 3.9 g/dL (3.5-5.0); Alkaline Phosphatase 137 U/L (39-117); Anion Gap 17 (12-20); Aspartate Amino Transferase 19 U/L (5-31); Bilirubin Total 0.4 mg/dL (0.0-1.0); Blood Urea Nitrogen 15 mg/dL (9-16); Calcium 9.7 mg/dL (8.4-10.2); Carbon Dioxide 22 mmol/L (22-29); Chloride 108 mmol/L (96-108); Cholesterol 211 mg/dL; Estimated Glomerular Filt Rate > 60; Glucose Fasting 98 mg/dL (60-99); HDL Cholesterol 67 mg/dL; LDL Cholesterol Calculated 120 mg/dl; Potassium 3.8 mmol/L (3.3-5.1); Sodium 143 mmol/L (135-145); Total Protein 7.1 g/dL (6.5-8.0); Triglycerides 122 mg/dL
[2022-12-07 13:04] LABS: TSH reflex Free T4 2.04 uIU/mL (0.32-4.0); Vitamin D 25-OH Total 30.8 ng/mL (>30)
[2022-12-07 13:14] LABS: Folate 8.9 ng/mL (> or = 4.0); Vitamin B12 499 pg/mL (200-900)
== END 2022-12-07 10:49 | disposition home or self-care (01) ==
LOC: HO.LAB 10:48
PROVIDERS: PCP Internal Medicine; Visit Provider Internal Medicine
DX: I10 Essential (primary) hypertension (principal); E53.8 Deficiency of other specified B group vitamins; R73.01 Impaired fasting glucose; E55.9 Vitamin D deficiency, unspecified; E78.00 Pure hypercholesterolemia, unspecified; R30.0 Dysuria
CPT/HCPCS: 36415; 80053; 80061; 81001; 82306; 82607; 82746; 83036; 84443; 85025; 87086

== ENCOUNTER 2022-12-16 09:50 | Outpatient (AMB) | payer OTHER, SELFPAY ==
[2022-12-16 09:51] VITALS: BP 160/90; PULSE 66; O2SAT 99; BMI 31.6
--- NOTE | 2022-12-16 09:51 | MHC.PC.OV ---
Vital Signs 12/16/22 09:51 12/16/22 10:48 Height 5 ft 6 in Weight 196 lb 0.4 oz BMI 31.6 BP 160/90 H 162/86 H Blood Pressure Location Lt brachial Lt brachial Position Sitting Sitting Pulse 66 Pulse Source Pulse Oximeter Temp Source Skin Pulse Oximetry (%) 99 Oxygen Delivery Method Room Air Intake Visit Reasons: Physical Exam Intake Note: Patient is here today for a physical. Table Assembler Required: Yes Table Assembler Language: Russian Allergies aspirin Adverse Reaction (Unknown, Verified 12/16/22 10:26) stomach upset atorvastatin Adverse Reaction (Unknown, Verified 12/16/22 10:26) significantly elevated LFTs Medication List - Last Reconciled 12/16/22 by DIVYA Thompson albuterol sulfate 90 mcg/actuation 2 puffs inhalation Q6H PRN aspirin 81 mg PO DAILY [BACK BRACE As directed] carbamazepine 200 mg PO BID 30 days cetirizine 10 mg PO DAILY cholecalciferol (vitamin D3) 25 mcg PO DAILY cyclobenzaprine 5 mg PO TID PRN 30 days ezetimibe 10 mg PO DAILY 90 days fluticasone propionate 50 mcg/actuation 1 spray intranasal DAILY hydrochlorothiazide 25 mg PO DAILY losartan 75 mg (1.5 x 50 mg) PO DAILY meclizine 25 mg PO TID PRN metoprolol tartrate 25 mg PO BID 30 days miscellaneous medical supply Back Brace miscellaneous medical supply Quad Cane omeprazole 20 mg PO DAILY 90 days oxybutynin chloride ER 10 mg PO DAILY 90 days [QUAD CANE As directed] rosuvastatin 5 mg PO DAILY 90 days Tobacco use date assessed: 12/16/22 Fall risk assessment: 1 Fall in past year Last assessed Fall Risk: 12/16/22 Dental Screening Dental Screen Date: 12/16/22 Did you have a dental visit in the last 12 months?: No Did you have a dental problem in the last 6 months where you did not have access to dental care?: No HPI Physical Exam HPI Details Patient is a 77-year-old female who presents today for physical exam. Patient of Dr. Aleman. Medical history significant for hypertension, trigeminal neurology-followed by Neurology in [place] and [place]-reports two procedures on left-sided head within past year, hypercholesterolemia, asthma, Alzheimer's dementia, obesity. Today we discussed patient's need for mammogram and bone density screening. Up-to-date with immunizations. Patient will call for an eye exam. Blood pressure elevated in the office today, patient reports she did not take her blood pressure medications yet, reports normal blood pressures at home. No shortness of breath or chest pain in the office. In addition, patient reports that her son 3 years ago and she thinks about this, declined referral for counseling. In addition, patient reports right upper quadrant poking sensation for long time now which is constant, reports history of gallbladder surgery about 20 years ago, recent blood work with no acute findings. Patient is a Russian-speaking and Alondra was helping with interpretation. [facility] Medical History Allergic rhinitis Alzheimer's dementia Asthma Benign essential hypertension Bilateral lower extremity edema Obesity (BMI 30-39.9) Pure hypercholesterolemia Trigeminal neuralgia Surgical History History of arthroplasty of left knee History of arthroplasty of right knee History of bladder surgery History of cholecystectomy History of surgery History of tubal ligation Family History Father Asthma Mother Colon cancer Sister Breast cancer Social History Housing: Apartment Alcohol intake: never Patient Tobacco Use Status: Never used Tobacco Second Hand Smoke Exposure: Yes service: No Current occupational status: disabled Cognitive needs: No Hearing needs: No Vision needs: Yes Questionnaire PHQ-9 Over the last 2 weeks, how often have you been bothered by any of the following problems? 1. Little interest or pleasure in doing things: several days 2. Feeling down, depressed, or hopeless: several days 3. Trouble falling or staying asleep, or sleeping too much: not at all 4. Feeling tired or having little energy: not at all 5. Poor appetite or overeating: not at all 6. Feeling bad about yourself - or that you are a failure or have let yourself or your family down: not at all 7. Trouble concentrating on things, such as reading the newspaper or watching television: not at all 8. Moving or speaking so slowly that other people could have noticed. Or the opposite - being so fidgety or restless that you have been moving around a lot more than usual: not at all 9. Thoughts that you would be better off or of hurting yourself in some way: not at all Total score: 2 Depression Screening Interpretation: Negative 68323 - PHQ-9 Billing: Yes Source: Developed by Drs. Terence Ring, Maci Colunga, Abraham Infante and colleagues, with an educational vernon from [employer]. Thrive Questionnaire Date Thrive assessed: 08/23/22 AUDIT C Alcohol Use Questionnaire (AUDIT-C) 1. How often do you have a drink containing alcohol?: Never 3. How often do you have six or more drinks on one occasion?: Never Total Score: 0 Score Reviewed/Action Taken: No SUSHIL-7 AMB Questionnaire SUSHIL-7 Date SUSHIL - 7 assessed: 12/16/22 Feeling nervous, anxious, or on edge: 1 = Several days Not being able to stop or control worryin = Several days Worrying too much about different things: 0 = Not at all Trouble relaxin = Not at all Being so restless that it is hard to sit still: 0 = Not at all Becoming easily annoyed or irritable: 0 = Not at all Feeling afraid as if something awful might happen: 0 = Not at all Total SUSHIL-7 score (0-4 normal; 5-9 mild; 10-14 moderate; 15-21 severe): 2 Source: Developed by Drs. Terence Ring, Maci Colunga, Abraham Infante and colleagues, with an educational vernon from [employer]. SUSHIL-7 Assessment Billing SUSHIL-7 Assessment Tool: SUSHIL-7 Assessment 18489 Review of Systems Const Denies body aches, Denies chills, Denies fever(s) and Reports headache(s) Eyes Denies change in vision ENT Denies dizziness, Denies otalgia, Reports headache(s), Denies nasal discharge, Denies sinus pain and Denies sore throat Card Denies chest pain, Denies edema, Denies lightheadedness and Denies dyspnea Resp Denies cough, Denies dyspnea and Denies wheezing GI Reports as per HPI, Reports abdominal pain, Denies constipation, Denies diarrhea, Denies nausea and Denies vomiting Denies dysuria Musc Denies myalgias Skin/Breast Denies rash Neuro Denies dizziness and Reports headache(s) Aller/Immun Denies wheezing Physical exam (Primary Care) Vital Signs: Last Vital Signs Pulse 66 12/16/22 09:51 BP 160/90 H 12/16/22 09:51 Pulse Ox 99 12/16/22 09:51 Oxygen Delivery Method Room Air 12/16/22 09:51 BMI result Body Mass Index 31.6 Tobacco/Smoking Status: Tobacco use Status Tobacco use date assessed 12/16/22 12/16/22 09:52 Patient Tobacco Use Status Never used Tobacco 12/16/22 09:52 PHQ-9: PHQ-9 Score PHQ-9: Total score 2 12/16/22 10:16 Depression Screening Interpretation: Negative Thrive Assessment: Date of Thrive Assessment Date Thrive assessed 08/23/22 12/16/22 09:52 Const General: cooperative and no acute distress Orientation/consciousness: patient oriented x3 HENMT Head: Yes normocephalic and Yes atraumatic Ears: TM's normal bilaterally Face and sinus: Yes sinuses nontender Mouth: oropharynx normal and moist mucous membranes Throat: Yes posterior oropharynx normal Eyes General: appearance normal, both eyes and all related structures Pupils: Equal, round and reactive pupils present EOM: EOMs intact bilaterally Neck Neck: Yes normal visual inspection, Yes full ROM and Yes no lymphadenopathy Thyroid: Thyroid normal Resp Effort & Inspection: normal respiratory effort and able to speak in complete sentences Auscultation: clear to auscultation bilaterally, no crackles, no rales, no rhonchi and no wheezes Cardio Rate: regular rate Rhythm: regular rhythm Heart sounds: S1 normal heart sound present, S2 normal heart sound present and no murmurs GI Other: Right upper quadrant healed scar, patient reports this is after having gallbladder surgery Palpation (GI): Soft to palpation, not firm, Tenderness to palpation present (GI) in the RUQ; Felix's sign negative and with no rebound tenderness, no guarding, not rigid and no hepatosplenomegaly Auscultation: normal bowel sounds Abdomen image: 1. Tender to palpation, skin is intact, surgical scar healed noted General: No CVA tenderness Back/Spine/Pelvis Back: No CVA tenderness Skin General skin exam: no rashes or lesions noted Neuro General: patient oriented x3 Cranial nerves: Yes Equal, round and reactive pupils present Gait exam (Neuro): Normal gait present Extrem General: Yes full ROM and No edema Assessment and Plan Assessment & Plan (1) RUQ pain: Code(s): R10.11 - Right upper quadrant pain Plan: Patient reports right upper quadrant poking sensation for very long time now, will obtain ultrasound to rule out hernia and assess liver. Recent blood work with no acute findings. Physical exam with right upper quadrant tenderness, no rebound tenderness. (2) Post-menopausal: Code(s): Z78.0 - Asymptomatic menopausal state (3) Screening for breast cancer: Code(s): Z12.39 - Encounter for other screening for malignant neoplasm of breast (4) Impaired fasting glucose: Code(s): R73.01 - Impaired fasting glucose Plan: A1c 5.7 12/2022 (5) Physical exam: Code(s): Z00.00 - Encounter for general adult medical examination without abnormal findings Plan: Repeat in 1 year (6) Obesity (BMI 30-39.9): Code(s): E66.9 - Obesity, unspecified Plan: Healthy food choices and exercise as tolerated (7) Asthma: Code(s): J45.909 - Unspecified asthma, uncomplicated Qualifiers: Asthma severity: mild Asthma persistence: intermittent Asthma complication type: uncomplicated Qualified Code(s): J45.20 - Mild intermittent asthma, uncomplicated Plan: Patient reports that she was recently sick with cold, her symptoms are improving, asthma is stable Continue albuterol inhaler p.r.n. (8) Pure hypercholesterolemia: Code(s): E78.00 - Pure hypercholesterolemia, unspecified Plan: LDL 120 12/2022 Continue rosuvastatin and Zetia Low-cholesterol diet (9) Trigeminal neuralgia: Comment: S/P percutaneous retrogasserian glycerol rhizotomy x 2, with only partial and temporary relief Code(s): G50.0 - Trigeminal neuralgia Plan: Continue to follow-up with Neurology in [facility] Patient is on carbamazepine b.i.d. and cyclobenzaprine t.i.d. p.r.n. Patient reports that she stopped taking gabapentin due to not feeling well on gabapentin (10) Benign essential hypertension: Code(s): I10 - Essential (primary) hypertension Plan: Goal BP equal or less than 140/90 Blood pressure elevated in the office today, patient reports she did not take her blood pressure medications this morning yet, reports normal blood pressures at home. Denies shortness of breath or chest pain in the office today Patient is to continue hydrochlorothiazide, losartan, metoprolol Continue to monitor blood pressures at home, notify provider if blood pressures consistently over 140/90 Low-sodium diet Plan Follow-up with PCP in 3 months or sooner as needed Orders: Orders XR DEXA axial skeleton Today Z78.0 - Asymptomatic menopausal state MM tomosynthesis screening BI Today Z12.31 - Encounter for screening mammogram for malignant neoplasm of breast, Z12.39 - Encounter for other screening for malignant neoplasm of breast US abdomen limited Today R10.11 - Right upper quadrant pain Coding Level of Care Code Est Pt Prev Care >65y(79689) Diagnoses RUQ pain R10.11 Post-menopausal Z78.0 Screening for breast cancer Z12.39 Impaired fasting glucose R73.01 Physical exam Z00.00 Obesity (BMI 30-39.9) E66.9 Asthma J45.20 Asthma severity: mild Asthma persistence: intermittent Asthma complication type: uncomplicated Pure hypercholesterolemia E78.00 Trigeminal neuralgia G50.0 Benign essential hypertension I10 Additional Codes SUSHIL-7 Assessment Billing - SUSHIL-7 Assessment Tool: SUSHIL-7 Assessment [id number] ([id number])
[2022-12-16 10:48] VITALS: BP 162/86
== END 2022-12-16 10:59 | disposition home or self-care (01) ==
PROVIDERS: Visit Provider Nurse Practitioner Family
DX: Z00.00 Encounter for general adult medical examination without abnormal findings (principal); J45.20 Mild intermittent asthma, uncomplicated; I10 Essential (primary) hypertension; R73.01 Impaired fasting glucose; R10.11 Right upper quadrant pain; Z78.0 Asymptomatic menopausal state; E66.9 Obesity, unspecified; E78.00 Pure hypercholesterolemia, unspecified; G50.0 Trigeminal neuralgia
CPT/HCPCS: 99397

== ENCOUNTER 2023-01-05 11:23 | Emergency (ER) | payer OTHER, SELFPAY ==
--- NOTE | ~2023-01-05 | CT_ITS ---
EXAMINATION: CT HEAD WITHOUT CONTRAST CLINICAL INFORMATION: Vertigo. COMPARISON: CT scan of the head dated 02/05/2019. TECHNIQUE: Contiguous axial imaging was performed from the skull base to vertex without intravenous administration of contrast. Coronal and sagittal reformatted images were obtained. This CT examination was performed using dose optimization techniques as appropriate, variously including the following: *Automated exposure control *Adjustment of mA and/or kV according to patient size (this includes techniques or standardized protocols for targeted exams where dose is matched to indication/reason for exam; i.e. extremities or head) *Use of iterative reconstruction technique DLP: 657 mGy-cm FINDINGS: There is mild widening of the cortical sulci and associated ventriculomegaly. The lateral ventricles are symmetrical. The third and fourth ventricles are in their normal midline position. The basilar and prepontine cisterns are unremarkable. Mild periventricular microvascular changes are seen. There is no acute intra or extracerebral abnormality. There is no mass effect or midline shift. Sections through the bony calvarium are unremarkable. The orbits are intact. The paranasal sinuses are clear. The mastoid air cells are clear. CT/CT head/brain wo IV con IMPRESSION: No acute intracranial pathology.
[2023-01-05 11:25] VITALS: BP 154/82; PULSE 83; RESP 19; TEMP 36.6; O2SAT 98; BMI 31.8
--- NOTE | 2023-01-05 11:26 | ED.GENADULT ---
HPI - General Adult General Chief complaint: Dizziness Stated complaint: Outpatient response Time Seen by Provider: 01/05/23 14:59 History of Present Illness HPI narrative: PATIENT IS A 77-YEAR-OLD FEMALE PRESENTS TODAY WITH HAVING SPINNING SENSATION. Patient was getting outpatient radiology studies done. When she felt very dizzy. Spinning. There has been no change in her medication. There is no fever no chills. There is no chest pain or diaphoresis. No nausea no vomiting. Positive history of similar symptoms. It is made worse with movement. Denies any pain on urination. Denies any coughing congestion upper respiratory symptoms. No fever no chills. No chest pain. She is from home. Denies noticing any blood in the stool. Related Data Home Medications Medication Instructions Recorded Confirmed miscellaneous medical supply ea miscellaneous 10/27/21 12/16/22 miscellaneous medical supply ea miscellaneous 10/27/21 12/16/22 Previous Rx's Medication Instructions Recorded BACK BRACE #1 ea 11/13/21 QUAD CANE #1 ea 11/13/21 meclizine 25 mg tablet 25 mg PO TID PRN dizziness #20 tabs 12/30/21 metoprolol tartrate 25 mg tablet 25 mg PO BID 30 days #60 tabs 02/13/22 ezetimibe 10 mg tablet 10 mg PO DAILY 90 days #90 tabs 02/15/22 cyclobenzaprine 5 mg tablet 5 mg PO TID PRN muscle spasms/ TMJ 09/17/22 pain 30 days #90 tabs aspirin 81 mg tablet,delayed 81 mg PO DAILY #28 tabs 10/20/22 release carbamazepine 200 mg tablet 200 mg PO BID 30 days #60 tabs 10/20/22 cetirizine 10 mg tablet 10 mg PO DAILY #28 tabs 10/20/22 cholecalciferol (vitamin D3) 25 25 mcg PO DAILY #28 tabs 10/20/22 mcg (1,000 unit) tablet hydrochlorothiazide 25 mg tablet 25 mg PO DAILY #28 tabs 10/20/22 losartan 50 mg tablet 75 mg PO DAILY #42 tabs 10/20/22 albuterol sulfate 90 mcg/actuation 2 puff inhalation Q6H PRN 11/16/22 aerosol inhaler shortness of breath or wheezing #8.5 grams fluticasone propionate 50 1 spray intranasal DAILY #15.8 mL 11/16/22 mcg/actuation nasal spray,suspension omeprazole 20 mg capsule,delayed 20 mg PO DAILY 90 days #90 caps 12/15/22 release oxybutynin chloride 10 mg 10 mg PO DAILY 90 days #90 tabs 12/15/22 tablet,extended release 24 hr rosuvastatin 5 mg tablet 5 mg PO DAILY 90 days #90 tabs 12/15/22 Allergies Allergy/AdvReac Type Severity Reaction Status Date / Time aspirin AdvReac Unknown stomach Verified 01/05/23 11:28 upset atorvastatin AdvReac Unknown significantly Verified 01/05/23 11:28 elevated LFTs Review of Systems Review of Systems: Positive generalized malaise Yes all other systems are reviewed and are negative [facility] Past Medical History Attestation statement: The following information was validated with the patient. Medical History Allergic rhinitis Alzheimer's dementia Asthma Benign essential hypertension Bilateral lower extremity edema Obesity (BMI 30-39.9) Pure hypercholesterolemia Trigeminal neuralgia Surgical History History of arthroplasty of left knee History of arthroplasty of right knee History of bladder surgery History of cholecystectomy History of surgery History of tubal ligation Family History Family History Father Asthma Mother Colon cancer Sister Breast cancer Social History Social History Housing: Apartment Alcohol intake: never Patient Tobacco Use Status: Never used Tobacco Smoked in Last 30 Days: No Second Hand Smoke Exposure: Yes Use of substances other than those prescribed or required for medical reasons: No Advance Directives: No Advance Directives Information Provided: No service: No Current occupational status: disabled Cognitive needs: No Hearing needs: No Vision needs: Yes Physical Exam ED Vital Signs: Vital Signs - 24 hr 01/05/23 11:25 01/05/23 14:52 01/05/23 16:00 Temperature 98 F 97.6 F Pulse Rate 83 66 Respiratory Rate 19 18 16 Blood Pressure 154/82 H 173/75 H Pulse Oximetry 98 94 Oxygen Delivery Method Room Air Room Air BMI result Body Mass Index 31.8 Appearance: Alert. Oriented X3. No acute distress. Eyes: Pupils equal, round and reactive to light. ENT: Pharynx normal. Neck: Normal inspection. Neck supple. No lymph nodes noted. No crepitus CVS: Normal heart rate and rhythm. Pulses normal. Normal S1 and S2 Respiratory: No respiratory distress. Breath sounds normal. No Wheezing. No rales Abdomen: Soft and nontender. No rigidity. No distention. good BS x4 Skin: Skin warm and dry. Normal skin color. Normal skin turgor. Extremities: No lower extremity edema. Neurovascular intact to all extremities. No Lacerations. No Rash Neuro: Oriented X 3. No motor deficit. No sensory deficit. Moving all extermities. No slurred speech. Cranial nerve 2-12 intact. Rapid alternating movement grossly intact. Course Course Course Narrative: This is an RME: Additional HPI, ROS, PE not included below will be deferred to primary provider. This is a 11-gsbu-szm-female, with a hx of asthma, dementia, hypertension, trigeminal neuralgia, presenting to the ER with complaints of nausea and dizziness since this morning. States the dizziness is constant, has been present upon wakening this morning. Hx of vertigo, unable to determine if this feels similar to vertigo she has had in the past. Plan: Labs, EKG Medical Decision Making Medical Decision Making [facility] Narrative: Patient well-appearing. Was coming to the hospital for radiologic studies. Subsequently felt lightheaded while getting the study. Sent to the emergency department for further evaluation. Patient claims she had spinning sensation question vertigo. No chest pain associated with these symptoms. CT scan of the head was negative for any acute evidence of bleeding. No mass noted. Patient's urine showed no signs of infection. White count was normal. Hemoglobin is 12.8 there is no evidence for anemia. Symptoms completely resolved. Will discharge patient home. Lab Data [facility] Lab Attestation statement: I reviewed the patient's lab results. 01/05/23 11:51 01/05/23 11:51 Labs: Lab Results 01/05/23 01/05/23 01/05/23 Range/Units 11:51 11:51 11:51 WBC 9.5 (4.8-10.8) X10*3/uL RBC 4.55 (4.20-5.50) X10*6/uL Hgb 12.8 (12.0-16.0) g/dl Hct 39.4 (37.0-47.0) % MCV 86.6 (80.0-98.0) fL MCH 28.1 (27.0-33.0) pg MCHC 32.5 (31.0-35.0) g/dl RDW 14.6 (11.0-16.0) % Plt Count 161 (160-400) X10*3/uL MPV 10.9 (9.4-12.3) fL Immature Gran % (Auto) 0.3 (0.0-0.4) % Neut % (Auto) 73.0 (45-73) % Lymph % (Auto) 20.8 (20-40) % [place] % (Auto) 4.2 (2-11) % Eos % (Auto) 1.3 (0-4) % Baso % (Auto) 0.4 (0-2) % Lymph # (Auto) 2.0 (1.2-4.9) X10*3/uL [place] # (Auto) 0.4 (0.1-1.2) X10*3/uL Eos # (Auto) 0.1 (0.0-0.4) X10*3/uL Baso # (Auto) 0.0 (0.0-0.2) X10*3/uL Abs Immat Gran (auto) 0.03 (0.00-0.03) X10*3/uL Absolute Neuts (auto) 6.9 (2.0-8.3) x10*3/uL Absolute Nucleated RBC 0.000 (0.0-0.012) X10*3/uL Nucleated RBC % (auto) 0.0 (0.0-0.2) /100WBC Sodium 142 (135-145) mmol/L Potassium 3.7 (3.3-5.1) mmol/L Chloride 109 H (96-108) mmol/L Carbon Dioxide 25 (22-29) mmol/L Anion Gap 12 (12-20) BUN 18 H (9-16) mg/dL Creatinine 0.80 (0.5-1.4) mg/dL Estim Creat Clear Calc 64.2 Estimated GFR > 60 Random Glucose 110 (60-115) mg/dL Calcium 9.8 (8.4-10.2) mg/dL Total Bilirubin 0.4 (0.0-1.0) mg/dL Direct Bilirubin 0.2 (0.0-0.5) mg/dL AST 19 (5-31) U/L ALT 16 (0-31) U/L Alkaline Phosphatase 129 H (39-117) U/L Troponin I High Sens < 2.7 (<3.5-17.0) ng/L Total Protein 7.3 (6.5-8.0) g/dL Albumin 4.1 (3.5-5.0) g/dL Urine Color Urine Appearance Urine pH (5.0-9.0) Ur Specific [place] (1.005-1.025) Urine Protein (Neg-Trace) mg/dL Urine Glucose (UA) (Negative) mg/dL Urine Ketones (Negative) mg/dL Urine Blood (Negative) Urine Nitrite (Negative) Ur Leukocyte Esterase (Negative) Urine RBC (0-2) /HPF Urine WBC (0-5) /HPF Ur Squamous Epith Cells (0-2) /HPF Urine Bacteria (None Seen) Hyaline Casts (0-2) /LPF 01/05/23 01/05/23 Range/Units 16:18 18:09 WBC (4.8-10.8) X10*3/uL RBC (4.20-5.50) X10*6/uL Hgb (12.0-16.0) g/dl Hct (37.0-47.0) % MCV (80.0-98.0) fL MCH (27.0-33.0) pg MCHC (31.0-35.0) g/dl RDW (11.0-16.0) % Plt Count (160-400) X10*3/uL MPV (9.4-12.3) fL Immature Gran % (Auto) (0.0-0.4) % Neut % (Auto) (45-73) % Lymph % (Auto) (20-40) % [place] % (Auto) (2-11) % Eos % (Auto) (0-4) % Baso % (Auto) (0-2) % Lymph # (Auto) (1.2-4.9) X10*3/uL [place] # (Auto) (0.1-1.2) X10*3/uL Eos # (Auto) (0.0-0.4) X10*3/uL Baso # (Auto) (0.0-0.2) X10*3/uL Abs Immat Gran (auto) (0.00-0.03) X10*3/uL Absolute Neuts (auto) (2.0-8.3) x10*3/uL Absolute Nucleated RBC (0.0-0.012) X10*3/uL Nucleated RBC % (auto) (0.0-0.2) /100WBC Sodium (135-145) mmol/L Potassium (3.3-5.1) mmol/L Chloride (96-108) mmol/L Carbon Dioxide (22-29) mmol/L Anion Gap (12-20) BUN (9-16) mg/dL Creatinine (0.5-1.4) mg/dL Estim Creat Clear Calc Estimated GFR Random Glucose (60-115) mg/dL Calcium (8.4-10.2) mg/dL Total Bilirubin (0.0-1.0) mg/dL Direct Bilirubin (0.0-0.5) mg/dL AST (5-31) U/L ALT (0-31) U/L Alkaline Phosphatase (39-117) U/L Troponin I High Sens < 2.7 (<3.5-17.0) ng/L Total Protein (6.5-8.0) g/dL Albumin (3.5-5.0) g/dL Urine Color Yellow Urine Appearance Clear Urine pH 6.0 (5.0-9.0) Ur Specific [place] 1.015 (1.005-1.025) Urine Protein Negative (Neg-Trace) mg/dL Urine Glucose (UA) Negative (Negative) mg/dL Urine Ketones Negative (Negative) mg/dL Urine Blood Negative (Negative) Urine Nitrite Negative (Negative) Ur Leukocyte Esterase Trace H (Negative) Urine RBC 0-2 (0-2) /HPF Urine WBC 0-5 (0-5) /HPF Ur Squamous Epith Cells 0-2 (0-2) /HPF Urine Bacteria None Seen (None Seen) Hyaline Casts 0-2 (0-2) /LPF Independent Interpretation I performed an independent interpretation of an: EKG (My interpretation patient's EKG showed a sinus rhythm heart rate is 80 NC QRS QTC within normal limits no gross ST segment elevation noted.) and CT Scan (CT scan of the head was negative for any acute evidence of bleeding) Radiology Impression Discussion of test interpretation with radiology: I have reviewed the radiologist's reading. External Record Review External record reviewed: Office record Discharge Plan Discharge Clinical Impression: Dizziness Patient Disposition: Home, Self-Care Instructions: Dizziness (ED) Prescriptions: No Action miscellaneous medical supply Misc miscellaneous Rx Instructions: Quad Cane miscellaneous medical supply Misc miscellaneous Rx Instructions: Back Brace (DME) BACK BRACE See Rx Instructions .Route .MEDSUPPLY Qty: 1 0RF Rx Instructions: As directed (DME) QUAD CANE See Rx Instructions .Route .MEDSUPPLY Qty: 1 0RF Rx Instructions: As directed metoprolol tartrate 25 mg tablet 25 mg PO BID 30 Days Qty: 60 12RF cyclobenzaprine 5 mg tablet 5 mg PO TID PRN (Reason: muscle spasms/ TMJ pain) 30 Days Qty: 90 0RF cholecalciferol (vitamin D3) 25 mcg (1,000 unit) tablet 25 mcg PO DAILY Qty: 28 2RF hydrochlorothiazide 25 mg tablet 25 mg PO DAILY Qty: 28 2RF losartan 50 mg tablet 75 mg PO DAILY Qty: 42 2RF aspirin 81 mg tablet,delayed release (DR/EC) 81 mg PO DAILY Qty: 28 12RF cetirizine 10 mg tablet 10 mg PO DAILY Qty: 28 5RF carbamazepine 200 mg tablet 200 mg PO BID 30 Days Qty: 60 2RF albuterol sulfate 90 mcg/actuation HFA aerosol inhaler 2 puff inhalation Q6H PRN (Reason: shortness of breath or wheezing) Qty: 8.5 1RF fluticasone propionate 50 mcg/actuation spray,suspension 1 spray intranasal DAILY Qty: 15.8 3RF Rx Instructions: administer into each nostril omeprazole 20 mg capsule,delayed release(DR/EC) 20 mg PO DAILY 90 Days Qty: 90 3RF oxybutynin chloride 10 mg tablet extended release 24hr 10 mg PO DAILY 90 Days Qty: 90 3RF rosuvastatin 5 mg tablet 5 mg PO DAILY 90 Days Qty: 90 3RF meclizine 25 mg tablet 25 mg PO TID PRN (Reason: dizziness) Qty: 20 0RF ezetimibe 10 mg tablet 10 mg PO DAILY 90 Days Qty: 90 3RF Referrals: Kenyetta Woo FNP [Primary Care Provider] - 01/07/23
--- NOTE | 2023-01-05 11:29 | ECG_ITS ---
Test Reason : weakness Blood Pressure : / mmHG Vent. Rate : 080 BPM Atrial Rate : 080 BPM P-R Int : 156 ms QRS Dur : 080 ms QT Int : 384 ms P-R-T Axes : 004 -22 -16 degrees QTc Int : 442 ms Normal sinus rhythm Nonspecific T wave abnormality Abnormal ECG When compared with ECG of 30-DEC-2021 19:19, Nonspecific T wave abnormality, worse in Inferior leads Nonspecific T wave abnormality now evident in Lateral leads Referred By: Michelle Helton Electronically Signed By:ROSIBEL SAINI
[2023-01-05 11:56] LABS: MANUAL DIFF FLAG NO
[2023-01-05 12:00] LABS: Basophils Percent Auto 0.4 % (0-2); Eosinophils Absolute Auto 0.1 X10*3/uL (0.0-0.4); Eosinophils Percent Auto 1.3 % (0-4); Hematocrit 39.4 % (37.0-47.0); Hemoglobin 12.8 g/dl (12.0-16.0); Imm Gran Abs Auto 0.03 X10*3/uL (0.00-0.03); Imm Gran Pct Auto 0.3 % (0.0-0.4); Lymphocytes Percent Auto 20.8 % (20-40); Mean Corpuscular HGB Conc 32.5 g/dl (31.0-35.0); Mean Corpuscular Hemoglobin 28.1 pg (27.0-33.0); Mean Corpuscular Volume 86.6 fL (80.0-98.0); Mean Platelet Volume 10.9 fL (9.4-12.3); Monocytes Absolute Auto 0.4 X10*3/uL (0.1-1.2); Monocytes Percent Auto 4.2 % (2-11); Neutrophils Absolute Auto 6.9 x10*3/uL (2.0-8.3); Platelet Count 161 X10*3/uL (160-400); Red Blood Count 4.55 X10*6/uL (4.20-5.50); Red Cell Distribution Width 14.6 % (11.0-16.0); White Blood Count 9.5 X10*3/uL (4.8-10.8)
[2023-01-05 12:11] LABS: Alanine Aminotransferase 16 U/L (0-31); Albumin Level 4.1 g/dL (3.5-5.0); Alkaline Phosphatase 129 U/L (39-117); Anion Gap 12 (12-20); Aspartate Amino Transferase 19 U/L (5-31); Bilirubin Direct 0.2 mg/dL (0.0-0.5); Bilirubin Total 0.4 mg/dL (0.0-1.0); Blood Urea Nitrogen 18 mg/dL (9-16); Calcium 9.8 mg/dL (8.4-10.2); Carbon Dioxide 25 mmol/L (22-29); Chloride 109 mmol/L (96-108); Creatinine Clr Calc Pharmacy 64.2; Estimated Glomerular Filt Rate > 60; Glucose Random 110 mg/dL (60-115); Potassium 3.7 mmol/L (3.3-5.1); Sodium 142 mmol/L (135-145); Total Protein 7.3 g/dL (6.5-8.0)
[2023-01-05 12:20] LABS: Troponin-I High Sensitivity < 2.7 ng/L (<3.5-17.0)
[2023-01-05 14:52] VITALS: BP 173/75; PULSE 66; RESP 18; TEMP 36.4; O2SAT 94
[2023-01-05 16:00] VITALS: RESP 16
[2023-01-05 16:58] LABS: Troponin-I High Sensitivity < 2.7 ng/L (<3.5-17.0)
[2023-01-05 18:20] LABS: Appearance Urine Clear; Color Urine Yellow; Glucose Urine UA Negative (Negative); Leukocyte Esterase Urine Trace (Negative); Nitrite Urine Negative (Negative); Specific Gravity - Urine 1.015 (1.005-1.025); UMIC TRIGGER UACC YES; Urine Blood Negative (Negative); Urine Ketones Negative (Negative); Urine Protein Negative (Neg-Trace)
[2023-01-05 18:25] LABS: Bacteria Urine None Seen (None Seen); Hyaline Casts Urine 0-2 /LPF (0-2); RBC Urine 0-2 /HPF (0-2); Squamous Epithelial Cell Urine 0-2 /HPF (0-2); WBC Urine 0-5 /HPF (0-5)
--- NOTE | 2023-01-05 19:26 | PC.NURSE ---
Pt given food per request and okay. To be ambulated shortly
[2023-01-05 20:00] VITALS: BP 191/85; PULSE 64; RESP 16; TEMP 36.8; O2SAT 97
--- NOTE | 2023-01-05 20:00 | PC.NURSE ---
Dr. Cardenas notified of patient's BP 191/85. Patient denies headache/dizziness, no new orders at this time, patient to continue taking home BP meds, monitor BP at home, and schedule a f/u appointment with PCP in 2 days. Patient verbalized understanding.
== END 2023-01-05 20:07 | disposition home or self-care (01) ==
PROVIDERS: Physician Assistant Medical; Emergency Provider Emergency Medicine Emergency Medical Services; PCP Nurse Practitioner Family
DX: R42 Dizziness and giddiness (principal); I10 Essential (primary) hypertension; E78.00 Pure hypercholesterolemia, unspecified; E66.9 Obesity, unspecified; Z68.31 Body mass index [BMI] 31.0-31.9, adult
CPT/HCPCS: 36415; 70450; 80048; 80076; 81001; 84484; 85025; 93005; 99284; 99285

== ENCOUNTER 2023-01-18 15:25 | Outpatient (AMB) | payer OTHER, SELFPAY ==
--- NOTE | 2023-01-18 15:26 | A.OFFPC_ITS ---
Vital Signs 01/18/23 15:27 Height 5 ft 6 in Weight 187 lb BMI 30.2 BP 140/78 H Blood Pressure Location Lt brachial Position Sitting Intake Visit Reasons: No appetite-medication Intake Note: Patient here c/o blood pressure, headaches causing trouble eating, seen at [facility] 01/05/23 high blood pressure, dizziness Slitter And Rewinder Required: No Accompanied by: Grand Child Allergies aspirin Adverse Reaction (Unknown, Verified 01/18/23 16:00) stomach upset atorvastatin Adverse Reaction (Unknown, Verified 01/18/23 16:00) significantly elevated LFTs Medication List - Last Reconciled 01/18/23 by Cisco Aleman MD albuterol sulfate 90 mcg/actuation 2 puffs inhalation Q6H PRN aspirin 81 mg PO DAILY [BACK BRACE As directed] carbamazepine 200 mg PO BID 30 days cetirizine 10 mg PO DAILY cholecalciferol (vitamin D3) 25 mcg PO DAILY cyclobenzaprine 5 mg PO TID PRN 30 days ezetimibe 10 mg PO DAILY 90 days fluticasone propionate 50 mcg/actuation 1 spray intranasal DAILY hydrochlorothiazide 25 mg PO DAILY losartan 75 mg (1.5 x 50 mg) PO DAILY meclizine 25 mg PO TID PRN metoprolol tartrate 25 mg PO BID 30 days miscellaneous medical supply Back Brace miscellaneous medical supply Quad Cane omeprazole 20 mg PO DAILY 90 days oxybutynin chloride ER 10 mg PO DAILY 90 days [QUAD CANE As directed] rosuvastatin 5 mg PO DAILY 90 days Tobacco use date assessed: 12/16/22 Fall risk assessment: 1 Fall in past year Last assessed Fall Risk: 01/18/23 Dental Screening Dental Screen Date: 01/18/23 Did you have a dental visit in the last 12 months?: No Did you have a dental problem in the last 6 months where you did not have access to dental care?: No Was dental information given to patient?: Patient has dentist HPI No appetite-medication HPI Details Patient comes in today for her follow up visit States that she has been experiencing recurrent dizziness and headaches for the past couple of weeks Reports (+) recurrent and sometimes sharp pains over her forehead area and her family feels that her headaches are affecting her appetite and she has not been eating much lately and has lost some weight as a result Recalls that she was brought to the ER a couple of weeks ago for further evaluation and when she suddenly developed increased dizziness while she was at the hospital getting some imaging tests done at the time Her blood pressure was noted to be elevated when she was first examined She also ended up getting some labs as well as an EKG and a head CT done, all of which came back negative/normal She was advised to continue taking her Meclizine as needed for her dizziness and to follow up with her PCP WILLY She denies any chest pains, no SOB No nausea/vomiting, no abdominal pain No change in bowel habits noted Had some follow up labs done a few weeks ago - to discuss her results [facility] Medical History Obesity (BMI 30-39.9) Alzheimer's dementia Asthma Allergic rhinitis Bilateral lower extremity edema Pure hypercholesterolemia Trigeminal neuralgia Benign essential hypertension Surgical History History of surgery History of bladder surgery History of arthroplasty of left knee History of arthroplasty of right knee History of tubal ligation History of cholecystectomy Family History Father Asthma Mother Colon cancer Sister Breast cancer Social History Housing: Apartment Alcohol intake: never Patient Tobacco Use Status: Never used Tobacco e-Cigarette/Vaping Use: Never Used Second Hand Smoke Exposure: Yes service: No Current occupational status: disabled Cognitive needs: No Hearing needs: No Vision needs: Yes Questionnaire Thrive Questionnaire Date Thrive assessed: 08/23/22 SUSHIL-7 AMB Questionnaire SUSHIL-7 Date SUSHIL - 7 assessed: 12/16/22 Source: Developed by Drs. Terence Ring, Maci Colunga, Abraham Infante and colleagues, with an educational vernon from [employer]. Review of Systems Const Reports fatigue, Denies fever(s), Reports headache(s) (recurrent), Reports poor appetite and Reports weight loss (lately) ENT Denies dysphagia, Reports dizziness (on and off lately), Denies otalgia, Reports facial pain (occasionally on the left side, leona around the left jaw area), Reports headache(s) (recurrent), Denies neck pain, Denies odynophagia and Denies sore throat Card Denies chest pain, Denies palpitations and Denies dyspnea Resp Denies cough, Denies dyspnea and Denies wheezing GI Denies abdominal pain, Denies constipation, Denies dysphagia, Denies heartburn, Denies diarrhea, Denies nausea, Denies odynophagia and Denies vomiting Denies difficulty voiding, Denies nocturia and Denies dysuria Musc Denies neck pain Neuro Denies behavioral changes, Reports dizziness (on and off lately), Reports headache(s) (recurrent) and Reports memory loss (stable) Psych Denies behavioral changes and Reports memory loss (stable) Endo Reports fatigue and Denies palpitations Aller/Immun Denies wheezing Physical exam (Primary Care) Vital Signs: Last Vital Signs BP 140/78 H 01/18/23 15:27 BMI result Body Mass Index 30.2 Tobacco/Smoking Status: Tobacco use Status Tobacco use date assessed 12/16/22 01/18/23 15:34 Patient Tobacco Use Status Never used Tobacco 01/18/23 15:34 e-Cigarette/Vaping Use Never Used 01/18/23 15:34 Thrive Assessment: Date of Thrive Assessment Date Thrive assessed 08/23/22 01/18/23 15:34 Const General: no acute distress and alert HENMT Ears: TM's normal bilaterally and EAC's normal Mouth: abnormal TMJ ((+) mild numbness over the left jaw & TMJ area on palpation) Throat: Yes posterior oropharynx normal and Yes tonsils normal (no TP congestion noted) Neck Neck: Yes no lymphadenopathy and Yes supple Resp Auscultation: clear to auscultation bilaterally, no rales and no wheezes Cardio Rate: regular rate Rhythm: regular rhythm Heart sounds: no murmurs GI Palpation (GI): Soft to palpation, nontender, no guarding and not rigid Auscultation: normal bowel sounds Extrem General: Yes no clubbing, cyanosis or edema Assessment and Plan Assessment & Plan (1) Trigeminal neuralgia: Comment: S/P percutaneous retrogasserian glycerol rhizotomy x 2, with only partial and temporary relief Code(s): G50.0 - Trigeminal neuralgia Plan: Left-sided - patient failed percutaneous retrogasserian glycerol rhizotomy x 2 and was advised by neurosurgery that additional surgery is no longer an option Was last seen by neurosurgery (Dr. Gregory) on 01/27/21 for follow up and reportedly advised then that her limited treatment options remaining include continuing medication management, repeat glycerol rhizotomy or gamma knife although advised that all of these do not really guarantee much in terms of symptom relief at this time She has been referred to a Dr. Medina at [facility] by Dr. Gregory and underwent some type of laser surgery (gamma knife?), which she states provided her with temporary relief but she has not been able to return there for follow up as her insurance has declined to cover any further appts Her son states that he has appealed this but have yet to hear back from her insurance Continue Carbamazepine 200 mg BID, Cyclobenzaprine 5 mg TID and Gabapentin 600 mg TID (2) Pure hypercholesterolemia: Code(s): E78.00 - Pure hypercholesterolemia, unspecified Plan: Results of her labs done back a few weeks ago reviewed and discussed with patient Reinforced low cholesterol diet Continue Rosuvastatin 5 mg QD and Ezetimibe 10 mg QD Will recheck her labs and fasting lipids in 3 months for follow up (3) Benign essential hypertension: Code(s): I10 - Essential (primary) hypertension Plan: Reinforced low sodium diet - goal is systolic BP of at least 140 to 150 mm or less Continue Losartan 50 mg 1.5 tablets (75 mg) QD, Metoprolol 25 mg BID and HCTZ 25 mg QD Advised her family that patient's BP is high today and that may be due to her recent headaches, dizziness and overall sense of not feeling good and that they should continue to help her monitor her blood pressure closely for now (4) Dizziness of unknown etiology: Code(s): R42 - Dizziness and giddiness Plan: Is likely due to paroxysmal vertigo - may continue Meclizine 25 mg TID PRN for now Advised that we may need to refer her for a trial of canalith positioning if her symptoms persist or get worse Will refer her to neurology for further evaluation and management of this as well (5) Asthma: Code(s): J45.909 - Unspecified asthma, uncomplicated Qualifiers: Asthma complication type: uncomplicated Asthma persistence: intermittent Asthma severity: mild Qualified Code(s): J45.20 - Mild intermittent asthma, uncomplicated Plan: Stable - continue Albuterol HFA 1 to 2 puffs 4 times a day as needed (6) Impaired fasting glucose: Code(s): R73.01 - Impaired fasting glucose Plan: HgbA1c was at 5.7% when last checked about a month ago; was at 5.8% back in May 2022 and his in-office HgbA1c was at 6.3% previously Reinforced low calorie diet/exercise as tolerated (7) Alzheimer's dementia: Code(s): G30.9 - Alzheimer's disease, unspecified; F02.80 - Dementia in other diseases classified elsewhere, unspecified severity, without behavioral disturbance, psychotic disturbance, mood disturbance, and anxiety Plan: Patient used to see Dr. Cano for follow up but has not been back to see him in a few years Will refer her back to neurology for further management / care (8) Allergic rhinitis: Code(s): J30.9 - Allergic rhinitis, unspecified Qualifiers: Allergic rhinitis seasonality: unspecified Allergic rhinitis trigger: unspecified Qualified Code(s): J30.9 - Allergic rhinitis, unspecified Plan: Continue Cetirizine 10 mg QD PRN and Fluticasone 50 mcg nasal spray QD PRN (9) Obesity (BMI 30-39.9): Code(s): E66.9 - Obesity, unspecified Plan: Reinforced diet/exercise as tolerated/lose weight Plan Follow up in 3 months Orders: Orders Comprehensive [place]. Panel Fast 3 Months E78.00 - Pure hypercholesterolemia, unspecified Lipid Panel 3 Months E78.00 - Pure hypercholesterolemia, unspecified TSH reflex Free T4 3 Months E78.00 - Pure hypercholesterolemia, unspecified Hemoglobin A1c 3 Months R73.01 - Impaired fasting glucose Complete Blood Count Auto Diff 3 Months I10 - Essential (primary) hypertension Vitamin B12 and Folate 3 Months E53.8 - Deficiency of other specified B group vitamins Vitamin D 25-OH Total 3 Months E55.9 - Vitamin D deficiency, unspecified UA CC w/rflx Micro + Cult 3 Months R30.0 - Dysuria Referrals Neurology Referral F02.80 - Dementia in other diseases classified elsewhere, unspecified severity, without behavioral disturbance, psychotic disturbance, mood disturbance, and anxiety, G30.9 - Alzheimer's disease, unspecified, G50.0 - Trigeminal neuralgia, R42 - Dizziness and giddiness, R51.9 - Headache, unspecified Coding Level of Care Code Est Pt Level 4 (09007) Diagnoses Trigeminal neuralgia G50.0 Pure hypercholesterolemia E78.00 Benign essential hypertension I10 Dizziness of unknown etiology R42 Mild intermittent asthma without complication J45.20 Asthma complication type: uncomplicated Asthma persistence: intermittent Asthma severity: mild Impaired fasting glucose R73.01 Alzheimer's dementia G30.9; F02.80 Allergic rhinitis, unspecified seasonality, unspecified trigger J30.9 Allergic rhinitis seasonality: unspecified Allergic rhinitis trigger: unspecified Obesity (BMI 30-39.9) E66.9
[2023-01-18 15:27] VITALS: BP 140/78; BMI 30.2
== END 2023-01-18 16:02 | disposition home or self-care (01) ==
PROVIDERS: PCP Nurse Practitioner Family; Visit Provider Internal Medicine
DX: I10 Essential (primary) hypertension (principal); J45.20 Mild intermittent asthma, uncomplicated; G30.9 Alzheimer's disease, unspecified; F02.80 Dementia in other diseases classified elsewhere, unspecified severity, without behavioral disturbance, psychotic disturbance, mood disturbance, and anxiety; R42 Dizziness and giddiness; G50.0 Trigeminal neuralgia; E78.00 Pure hypercholesterolemia, unspecified; J30.9 Allergic rhinitis, unspecified; R73.01 Impaired fasting glucose; E66.9 Obesity, unspecified
CPT/HCPCS: 99214

== ENCOUNTER 2023-01-27 10:16 | Outpatient (REF) | payer OTHER, SELFPAY ==
--- NOTE | ~2023-01-27 | MM_ITS ---
EXAMINATION: BONE DENSITOMETRY CLINICAL INDICATION: Asymptomatic menopausal state. COMPARISON: This is the patient's baseline examination. TECHNIQUE: Using a [employer] DXA System (software version: 13.1) manufactured by [employer], dual-energy x-ray absorptiometry was performed of the lumbar spine and left hip. The images are of good technical quality. Summary results are attached. FINDINGS: AP SPINE L1-L4: BMD 1.435 g/cm2, Z-score 3.1, T-score 2.1, normal. LEFT FEMUR, NECK: BMD 0.773 g/cm2, Z-score -0.3, T-score -1.9, osteopenia. LEFT FEMUR, TOTAL: BMD 0.843 g/cm2, Z-score 0.1, T-score -1.3, osteopenia. IDENTIFIED RISK FACTORS: Osteoporosis. Recurrent falls. Menopause. HISTORY OF FRACTURE: None listed. MEDICATIONS: Calcium supplement and/or multivitamin. Vitamin D. MM/XR DEXA axial skeleton IMPRESSION: 1. DIAGNOSIS: Osteopenia based on the lowest T-score value of -1.9 in the femoral neck applying World Health Organization criteria. 2. 10-YEAR FRACTURE RISK PREDICTION, FRAX: Major osteoporotic fracture (clinical spine, forearm, hip or shoulder) 8.7%. Hip fracture 2.3%. 3. Treatment Recommendations: NOF guidelines recommend consideration for treatment in postmenopausal women and men age 50 and older presenting with the following: -A hip or vertebral (clinical or morphometric) fracture. -T-score less than or equal to -2.5 at the femoral neck or spine after appropriate evaluation to exclude secondary causes. -Low bone mass at the hip or spine and a 10-year fracture probability by FRAX of greater than or equal to 3% for hip fracture or greater than or equal to 20% for major osteoporotic fracture based on the [place] adapted WHO algorithm. 4. Other Recommendations: All treatment decisions require clinical judgment and consideration of individual patient factors, including patient preferences, comorbidities, previous drug use, risk factors not captured in the FRAX model (e.g. frailty, falls, vitamin D deficiency, increased bone turnover, interval significant decline in bone density) and possible under or overestimation of fracture risk by FRAX. Additional medical evaluation for secondary cause of low bone mineral density may be appropriate. FUTURE SCAN RECOMMENDATION: People with diagnosed cases of osteoporosis or at high risk for fracture should have regular bone mineral density tests. For patients eligible for Medicare, routine testing is allowed once every 2 years. The testing frequency can be increased to one year for patients who have rapidly progressing disease, those who are receiving or discontinuing medical therapy to restore bone mass, or have additional risk factors.
--- NOTE | ~2023-01-27 | MM_ITS ---
EXAMINATION: MM SCREENING DIGITAL BREAST TOMOSYNTHESIS, BILATERAL CLINICAL INFORMATION: Screening. Asymptomatic. COMPARISON: Mammography: This study is compared with prior exams dating back to 2016. TECHNIQUE: Digital breast tomosynthesis is performed in both the craniocaudal and mediolateral oblique views along with computer-aided detection (CAD). Synthesized 2D images are generated from the tomosynthesis. FINDINGS: There are scattered areas of fibroglandular density (ACR BI-RADS breast composition Category b). There are no significant masses, abnormal calcifications, or other abnormalities. MM/MM tomosynthesis screening BI IMPRESSION: No mammographic evidence of malignancy. ASSESSMENT: BI-RADS BI-RADS 1 - Negative RECOMMENDATION: Routine annual mammography screening. 1 year F/U This examination should not preclude the clinical evaluation of a suspicious palpable abnormality. This patient's information was entered into a reminder system with a target due date for their next mammogram.
== END 2023-01-27 10:17 | disposition home or self-care (01) ==
LOC: HO.MAMMO 10:16
PROVIDERS: PCP Internal Medicine; Visit Provider Internal Medicine
DX: Z12.31 Encounter for screening mammogram for malignant neoplasm of breast (principal); Z13.820 Encounter for screening for osteoporosis; Z78.0 Asymptomatic menopausal state
CPT/HCPCS: 77063; 77067; 77080

== ENCOUNTER → 2023-01-27 10:30 | Outpatient (BNV) | payer OTHER, SELFPAY | PROVIDERS: PCP Internal Medicine; Visit Provider Radiology Diagnostic Radiology | DX: Z12.31 Encounter for screening mammogram for malignant neoplasm of breast (principal) | CPT/HCPCS: 77063; 77067 ==

== ENCOUNTER 2023-06-13 13:14 | Outpatient (AMB) | payer OTHER, SELFPAY ==
[2023-06-13 13:25] VITALS: BP 126/80; PULSE 73; O2SAT 98; BMI 30.8
--- NOTE | 2023-06-13 13:25 | A.OFFPC_ITS ---
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: No Accompanied by: Self / Same As Patient Allergies aspirin Adverse Reaction (Unknown, Verified 06/13/23 13:51) stomach upset atorvastatin Adverse Reaction (Unknown, Verified 06/13/23 13:51) significantly elevated LFTs Medication List - Last Reconciled 06/13/23 by Cisco Aleman MD albuterol sulfate 90 mcg/actuation 2 puffs inhalation Q6H PRN aspirin 81 mg PO DAILY [BACK BRACE As directed] calcium carbonate (Oyster Shell Calcium) 500 mg PO DAILY 90 days carbamazepine 200 mg PO BID 30 days cetirizine 10 mg PO DAILY cholecalciferol (vitamin D3) 25 mcg PO DAILY cyclobenzaprine 5 mg PO TID PRN 30 days ezetimibe 10 mg PO DAILY 90 days fluticasone propionate 50 mcg/actuation 1 spray intranasal DAILY gabapentin 600 mg PO TID 30 days hydrochlorothiazide 25 mg PO DAILY losartan 75 mg (1.5 x 50 mg) PO DAILY meclizine 25 mg PO TID PRN metoprolol tartrate 25 mg PO BID 30 days miscellaneous medical supply Back Brace miscellaneous medical supply Quad Cane omeprazole 20 mg PO DAILY 90 days oxybutynin chloride ER 10 mg PO DAILY 90 days [QUAD CANE As directed] rosuvastatin 5 mg PO DAILY 90 days Tobacco use date assessed: 06/13/23 Fall risk assessment: No Falls in past year Last assessed Fall Risk: 06/13/23 Dental Screening Dental Screen Date: 06/13/23 Did you have a dental visit in the last 12 months?: Yes Did you have a dental problem in the last 6 months where you did not have access to dental care?: No Was dental information given to patient?: Patient has dentist HPI follow up HPI Details Patient comes in today for her follow up visit States that she has been experiencing increasing pain over her right shoulder since she has her BMD done back in January 2023 and she now cannot raise her right arm above her head due to the pain in the shoulder Denies any recent injury or trauma to her right shoulder Adds that there is a medication that she is taking now that she presumes is for pain and relates that she feels dizzy every time she takes it - would like to see if it can be changed but she cannot remember the name of the medication She denies any headaches Denies any chest pains, no SOB No nausea/vomiting, no abdominal pain No change in bowel habits noted She was not able to get her follow up labs done prior to her appt today [facility] Medical History Obesity (BMI 30-39.9) Alzheimer's dementia Asthma Allergic rhinitis Bilateral lower extremity edema Pure hypercholesterolemia Trigeminal neuralgia Benign essential hypertension Surgical History History of surgery History of bladder surgery History of arthroplasty of left knee History of arthroplasty of right knee History of tubal ligation History of cholecystectomy Family History Father Asthma Mother Colon cancer Sister Breast cancer Social History Housing: Apartment Alcohol intake: never Patient Tobacco Use Status: Never used Tobacco e-Cigarette/Vaping Use: Never Used Second Hand Smoke Exposure: Yes service: No Current occupational status: disabled Cognitive needs: No Hearing needs: No Vision needs: Yes Questionnaire PHQ-9 Over the last 2 weeks, how often have you been bothered by any of the following problems? 1. Little interest or pleasure in doing things: several days 2. Feeling down, depressed, or hopeless: several days 3. Trouble falling or staying asleep, or sleeping too much: not at all 4. Feeling tired or having little energy: not at all 5. Poor appetite or overeating: not at all 6. Feeling bad about yourself - or that you are a failure or have let yourself or your family down: not at all 7. Trouble concentrating on things, such as reading the newspaper or watching television: not at all 8. Moving or speaking so slowly that other people could have noticed. Or the opp osite - being so fidgety or restless that you have been moving around a lot more than usual: not at all 9. Thoughts that you would be better off or of hurting yourself in some way: not at all Total score: 2 Depression Screening Interpretation: Negative Depression Screening Done: Yes 61979 - PHQ-9 Billing: Yes Source: Developed by Drs. Terence Ring, Maci Colunga, Abraham Infante and colleagues, with an educational vernon from [employer]. Thrive Questionnaire Date Thrive assessed: 06/13/23 I am a: Patient What is your living situation today?: I have a steady place to live Within the past 12 months, did the food you bought not last and you didn't have the money to get more?: Never true Within the past 12 months, did you worry whether your food would run out before you got money to buy more?: Never true Do you have trouble paying for medicines?: No Do you have trouble getting transportation to medical appointments?: No Do you have trouble paying your heating and electricity bill?: No Do you have trouble taking care of your child, family member or friend?: No Do you have trouble with day-to-day activities such as bathing, preparing meals, shopping, managing finances, etc.?: No Are you currently unemployed and looking for a job?: No Are you interested in more education?: No Please select the resources that you would like help with: None Currently or been in a relationship where the following occur: no concerns reported THRIVE Score: 0 AUDIT C Alcohol Use Questionnaire (AUDIT-C) 1. How often do you have a drink containing alcohol?: Never 3. How often do you have six or more drinks on one occasion?: Never Total Score: 0 Score Reviewed/Action Taken: Yes SUSHIL-7 AMB Questionnaire SUSHIL-7 Date SUSHIL - 7 assessed: 06/13/23 Feeling nervous, anxious, or on edge: 0 = Not at all Not being able to stop or control worryin = Not at all Worrying too much about different things: 0 = Not at all Trouble relaxin = Not at all Being so restless that it is hard to sit still: 0 = Not at all Becoming easily annoyed or irritable: 0 = Not at all Feeling afraid as if something awful might happen: 0 = Not at all Total SUSHIL-7 score (0-4 normal; 5-9 mild; 10-14 moderate; 15-21 severe): 0 Source: Developed by Drs. Terence Ring, Maci Colunga, Abraham Infante and colleagues, with an educational vernon from [employer]. Review of Systems Const Denies chills, Reports fatigue, Denies fever(s) and Denies headache(s) (better controlled lately) ENT Denies dysphagia, Reports dizziness (on and off ), Denies otalgia, Denies facial pain, Denies headache(s) (better controlled lately), Denies neck pain, Denies odynophagia and Denies sore throat Card Denies chest pain, Denies palpitations and Denies dyspnea Resp Denies cough, Denies dyspnea and Denies wheezing GI Denies abdominal pain, Denies constipation, Denies dysphagia, Denies heartburn, Denies diarrhea, Denies nausea, Denies odynophagia and Denies vomiting Denies difficulty voiding, Denies nocturia, Denies dysuria and Denies urinary urgency Musc Denies back pain, Reports arthralgias (right shoulder - see HPI) and Denies neck pain Skin/Breast Denies rash Neuro Denies behavioral changes, Reports dizziness (on and off ), Denies headache(s) (better controlled lately) and Reports memory loss (stable) Psych Denies behavioral changes and Reports memory loss (stable) Endo Reports fatigue and Denies palpitations Aller/Immun Denies wheezing Physical exam (Primary Care) Vital Signs: Last Vital Signs Pulse 73 06/13/23 13:25 BP 126/80 06/13/23 13:25 Pulse Ox 98 06/13/23 13:25 Oxygen Delivery Method Room Air 06/13/23 13:25 BMI result Body Mass Index 30.8 Tobacco/Smoking Status: Tobacco use Status Tobacco use date assessed 06/13/23 06/13/23 13:30 Patient Tobacco Use Status Never used Tobacco 06/13/23 13:30 e-Cigarette/Vaping Use Never Used 06/13/23 13:30 PHQ-9: PHQ-9 Score PHQ-9: Total score 2 06/13/23 13:30 Depression Screening Interpretation: Negative Thrive Assessment: Date of Thrive Assessment Date Thrive assessed 06/13/23 06/13/23 13:30 Currently or been in a relationship where the following occur: no concerns reported Const General: no acute distress and alert HENMT Ears: TM's normal bilaterally and EAC's normal Throat: Yes posterior oropharynx normal and Yes tonsils normal (no TP congestion noted) Neck Neck: Yes no lymphadenopathy and Yes supple Thyroid: Thyroid normal Lymphatic: no lymphadenopathy noted Resp Auscultation: clear to auscultation bilaterally, no rales and no wheezes Cardio Rate: regular rate Rhythm: regular rhythm Heart sounds: no murmurs GI Palpation (GI): Soft to palpation, nontender, no guarding and not rigid Auscultation: normal bowel sounds Extrem General: Yes no clubbing, cyanosis or edema Right upper extremity: shoulder/upper arm Details: tenderness Location: of the A-C joint and abnormal ROM (unable to raise arm above shoulder level due to pain) Details: pain with active ROM Assessment and Plan Assessment & Plan (1) Trigeminal neuralgia: Comment: S/P percutaneous retrogasserian glycerol rhizotomy x 2, with only partial and temporary relief Code(s): G50.0 - Trigeminal neuralgia Plan: Primarily left-sided - states that her symptoms have been better controlled lately Patient failed percutaneous retrogasserian glycerol rhizotomy x 2 and was advised by neurosurgery that additional surgery is no longer an option Was last seen by neurosurgery (Dr. Gregory) on 01/27/21 for follow up and reportedly advised then that her limited treatment options remaining include continuing medication management, repeat glycerol rhizotomy or gamma knife although advised that all of these do not really guarantee much in terms of symptom relief at this time She has been referred to a Dr. Medina at [facility] by Dr. Gregory and underwent some type of laser surgery (gamma knife?), which she states provided her with temporary relief but she has not been able to return there for follow up as her insurance has declined to cover any further appts Her son states that he has appealed this but have not heard back from her insurance so far Continue Carbamazepine 200 mg BID, Cyclobenzaprine 5 mg TID and Gabapentin 600 mg TID (2) Pure hypercholesterolemia: Code(s): E78.00 - Pure hypercholesterolemia, unspecified Plan: She was not able to get her follow up labs done prior to her appt today Reinforced low cholesterol diet Continue Rosuvastatin 5 mg QD and Ezetimibe 10 mg QD Will recheck her labs and fasting lipids in 3 months for follow up - will just have patient use her current orders (updated) for her next lab draw (3) Benign essential hypertension: Code(s): I10 - Essential (primary) hypertension Plan: Reinforced low sodium diet - goal is systolic BP of at least 140 to 150 mm or less Continue Losartan 50 mg 1.5 tablets (75 mg) QD, Metoprolol 25 mg BID and HCTZ 25 mg QD Her family is reminded to help monitor her blood pressure regularly (4) Dizziness of unknown etiology: Code(s): R42 - Dizziness and giddiness Plan: Is likely due to paroxysmal vertigo - may continue Meclizine 25 mg TID PRN for now Advised that we may need to refer her for a trial of canalith positioning if her symptoms persist or get worse She was referred to neurology for further evaluation and management previously - is scheduled to be seen next month (July 2023) Patient adds that she has a medicine (unable to name which one) that she thinks makes her feel more dizzy everytime she takes it Her son is instructed to try to find out the name of this medicine and let us know and we will see if it needs to be replaced or changed (5) Asthma: Code(s): J45.909 - Unspecified asthma, uncomplicated Qualifiers: Asthma severity: mild Asthma persistence: intermittent Asthma complication type: uncomplicated Qualified Code(s): J45.20 - Mild intermittent asthma, uncomplicated Plan: Stable - continue Albuterol HFA 1 to 2 puffs 4 times a day as needed (6) Alzheimer's dementia: Code(s): G30.9 - Alzheimer's disease, unspecified; F02.80 - Dementia in other diseases cl assified elsewhere, unspecified severity, without behavioral disturbance, psychotic disturbance, mood disturbance, and anxiety Plan: Patient used to see Dr. Cano for follow up but has not been back to see him in a few years She was referred back to neurology for further management / care and is scheduled to see them in July 2023 (7) Allergic rhinitis: Code(s): J30.9 - Allergic rhinitis, unspecified Qualifiers: Allergic rhinitis trigger: unspecified Allergic rhinitis seasonality: unspecified Qualified Code(s): J30.9 - Allergic rhinitis, unspecified Plan: Continue Cetirizine 10 mg QD PRN and Fluticasone 50 mcg nasal spray QD PRN (8) Osteopenia: Code(s): M85.80 - Other specified disorders of bone density and structure, unspecified site Qualifiers: Osteopenia location: unspecified Qualified Code(s): M85.80 - Other specified disorders of bone density and structure, unspecified site Plan: Results of her BMD done in January 2023 revealed (+) osteopenia, with the lowest T score of -1.9 in the femoral neck - this is her index screen She is advised to continue with her daily calcium and vitamin D supplements Fall precautions reinforced as well Will continue to monitor her BMD regularly every 2 to 3 years (9) Right shoulder pain: Code(s): M25.511 - Pain in right shoulder Qualifiers: Chronicity: unspecified Qualified Code(s): M25.511 - Pain in right shoulder Plan: Suspect tendinitis or bursitis of the shoulder Will send her for right shoulder x-rays WILLY for further evaluation (10) Obesity (BMI 30-39.9): Code(s): E66.9 - Obesity, unspecified Plan: Reinforced diet; exercise and weight loss are unrealistic given patient's physical issuse/symptoms and comorbidities Plan Follow up in 3 months Orders: Orders XR shoulder RT min 2V Today M25.511 - Pain in right shoulder Coding Level of Care Code Est Pt Level 4 (22439) Diagnoses Trigeminal neuralgia G50.0 Pure hypercholesterolemia E78.00 Benign essential hypertension I10 Dizziness of unknown etiology R42 Mild intermittent asthma without complication J45.20 Asthma severity: mild Asthma persistence: intermittent Asthma complication type: uncomplicated Alzheimer's dementia G30.9; F02.80 Allergic rhinitis, unspecified seasonality, unspecified trigger J30.9 Allergic rhinitis trigger: unspecified Allergic rhinitis seasonality: unspecified Osteopenia, unspecified location M85.80 Osteopenia location: unspecified Right shoulder pain, unspecified chronicity M25.511 Chronicity: unspecified Obesity (BMI 30-39.9) E66.9
== END 2023-06-13 14:03 | disposition home or self-care (01) ==
PROVIDERS: PCP Internal Medicine; Visit Provider Internal Medicine
DX: G30.9 Alzheimer's disease, unspecified (principal); E66.9 Obesity, unspecified; Z68.30 Body mass index [BMI] 30.0-30.9, adult; F02.80 Dementia in other diseases classified elsewhere, unspecified severity, without behavioral disturbance, psychotic disturbance, mood disturbance, and anxiety; G50.0 Trigeminal neuralgia; J30.9 Allergic rhinitis, unspecified; E78.00 Pure hypercholesterolemia, unspecified; I10 Essential (primary) hypertension; R42 Dizziness and giddiness; J45.20 Mild intermittent asthma, uncomplicated; M85.80 Other specified disorders of bone density and structure, unspecified site; M25.511 Pain in right shoulder
CPT/HCPCS: 99214

== ENCOUNTER 2023-06-30 15:33 | Outpatient (REF) | payer OTHER, SELFPAY ==
--- NOTE | ~2023-06-30 | XR_ITS ---
EXAMINATION: XR SHOULDER, RIGHT CLINICAL INFORMATION: Pain in right shoulder. COMPARISON: None available. TECHNIQUE: Four views of the right shoulder. FINDINGS: Advanced degenerative changes in the acromioclavicular joint with joint space narrowing and hypertrophic change. Degenerative changes in the imaged upper thoracic spine. Moderate degenerative changes in the glenohumeral joint. Humeral head is somewhat inferiorly located relative to the glenoid. XR/XR shoulder RT min 2V IMPRESSION: 1. Advanced degenerative changes in the acromioclavicular joint. 2. Moderate degenerative changes in the glenohumeral joint. 3. Humeral head is somewhat inferiorly located relative to the glenoid. 4. Additional imaging with CT scan or MRI should be considered for better visualization as these modalities are much more sensitive for detection of fracture or other underlying pathology. This study was presented today, 07/06/2023, for interpretation. Prompt priority results supplied at this time to the referring provider as requested by the provider.
== END 2023-06-30 15:34 | disposition home or self-care (01) ==
LOC: HO.XRAY 15:33
PROVIDERS: PCP Internal Medicine; Visit Provider Internal Medicine
DX: M25.511 Pain in right shoulder (principal)
CPT/HCPCS: 73030

== ENCOUNTER 2023-07-11 11:52 | Outpatient (REF) | payer OTHER, SELFPAY ==
[2023-07-11 12:17] LABS: MANUAL DIFF FLAG NO
[2023-07-11 12:59] LABS: Basophils Percent Auto 0.8 % (0-2); Eosinophils Absolute Auto 0.1 X10*3/uL (0.0-0.4); Eosinophils Percent Auto 2.7 % (0-4); Hematocrit 39.3 % (37.0-47.0); Hemoglobin 12.7 g/dl (12.0-16.0); Lymphocytes Absolute Auto 2.5 X10*3/uL (1.2-4.9); Mean Corpuscular HGB Conc 32.3 g/dl (31.0-35.0); Mean Corpuscular Hemoglobin 28.3 pg (27.0-33.0); Mean Corpuscular Volume 87.7 fL (80.0-98.0); Mean Platelet Volume 11.2 fL (9.4-12.3); Monocytes Absolute Auto 0.3 X10*3/uL (0.1-1.2); Monocytes Percent Auto 5.7 % (2-11); Neutrophils Absolute Auto 1.8 x10*3/uL (2.0-8.3); Neutrophils Percent Auto 38.8 % (45-73); Platelet Count 190 X10*3/uL (160-400); Red Blood Count 4.48 X10*6/uL (4.20-5.50); Red Cell Distribution Width 14.4 % (11.0-16.0); White Blood Count 4.8 X10*3/uL (4.8-10.8)
[2023-07-11 13:04] LABS: Estimated Average Glucose 120 mg/dL; Hemoglobin A1c % 5.8 % (<6.0)
[2023-07-11 13:27] LABS: Appearance Urine Cloudy; Color Urine Dark Yellow; Glucose Urine UA Negative (Negative); Leukocyte Esterase Urine Moderate (2+) (Negative); Nitrite Urine Negative (Negative); PH 5.5 (5.0-9.0); Specific Gravity - Urine 1.025 (1.005-1.025); UMIC TRIGGER UACC YES; Urine Blood Negative (Negative); Urine Ketones Trace mg/dL (Negative); Urine Protein Trace mg/dL (Neg-Trace)
[2023-07-11 13:45] LABS: Alanine Aminotransferase 10 U/L (0-31); Alkaline Phosphatase 130 U/L (39-117); Anion Gap 9 (12-20); Aspartate Amino Transferase 14 U/L (5-31); Bilirubin Total 0.4 mg/dL (0.0-1.0); Blood Urea Nitrogen 11 mg/dL (9-16); Calcium 9.5 mg/dL (8.4-10.2); Carbon Dioxide 30 mmol/L (22-29); Chloride 106 mmol/L (96-108); Cholesterol 243 mg/dL (<200); Estimated Glomerular Filt Rate > 60; Glucose Fasting 96 mg/dL (60-99); HDL Cholesterol 69 mg/dL (>40); LDL Cholesterol Calculated 150 mg/dL (<100); Potassium 3.9 mmol/L (3.3-5.1); Sodium 141 mmol/L (135-145); Total Protein 7.1 g/dL (6.5-8.0); Triglycerides 124 mg/dL (<150)
[2023-07-11 13:50] LABS: Bacteria Urine 1+ (None Seen); Calcium Oxalate Crystals Urine Present; RBC Urine 0-2 /HPF (0-2); UACC Culture Trigger YES
[2023-07-11 14:05] LABS: TSH reflex Free T4 1.51 uIU/mL (0.32-4.0); Vitamin D 25-OH Total 31.2 ng/mL (>30)
[2023-07-11 14:10] LABS: Folate 10.4 ng/mL (> or = 4.0); Vitamin B12 545 pg/mL (200-900)
== END 2023-07-11 11:53 | disposition home or self-care (01) ==
LOC: HO.LAB 11:52
PROVIDERS: PCP Internal Medicine; Visit Provider Internal Medicine
DX: E78.00 Pure hypercholesterolemia, unspecified (principal); E53.8 Deficiency of other specified B group vitamins; R73.01 Impaired fasting glucose; I10 Essential (primary) hypertension; E55.9 Vitamin D deficiency, unspecified; R30.0 Dysuria
CPT/HCPCS: 36415; 80053; 80061; 81001; 81003; 82306; 82607; 82746; 83036; 84443; 85025; 87086

== ENCOUNTER 2023-10-06 11:42 | Outpatient (AMB) | payer OTHER, SELFPAY ==
[2023-10-06 11:45] VITALS: BP 150/82; PULSE 60; O2SAT 97; BMI 31.3
--- NOTE | 2023-10-06 11:45 | MHC.PC.OV ---
Vital Signs 10/06/23 11:45 Height 5 ft 6 in Weight 194 lb BMI 31.3 BP 150/82 H Blood Pressure Location Lt brachial Position Sitting Pulse 60 Pulse Source Pulse Oximeter Pulse Oximetry (%) 97 Oxygen Delivery Method Room Air Intake Visit Reasons: 3 months f/u Asbestos Cloth Inspector Required: No Web Solutions Architect: Not Required per policy Accompanied by: Self / Same As Patient Allergies aspirin Adverse Reaction (Unknown, Verified 10/06/23 12:50) stomach upset atorvastatin Adverse Reaction (Unknown, Verified 10/06/23 12:50) significantly elevated LFTs Medication List - Last Reconciled 10/06/23 by Cisco Aleman MD albuterol sulfate 90 mcg/actuation 2 puffs inhalation Q6H PRN aspirin 81 mg PO DAILY [BACK BRACE As directed] calcium carbonate (Oyster Shell Calcium) 500 mg PO DAILY 90 days carbamazepine 200 mg PO BID 30 days cetirizine 10 mg PO DAILY cholecalciferol (vitamin D3) 25 mcg PO DAILY cyclobenzaprine 5 mg PO TID PRN 30 days ezetimibe 10 mg PO DAILY 90 days fluticasone propionate 50 mcg/actuation 1 spray intranasal DAILY gabapentin 600 mg PO TID 30 days hydrochlorothiazide 25 mg PO DAILY incontinence pad, liner, disp (Poise Pads) As directed losartan 75 mg (1.5 x 50 mg) PO DAILY metoprolol tartrate 25 mg PO BID 30 days miscellaneous medical supply Back Brace miscellaneous medical supply Quad Cane nebulizers (Compact Compressor Nebulizer) As directed 3 to 4 times a day as needed omeprazole 20 mg PO DAILY 90 days oxybutynin chloride ER 10 mg PO DAILY 90 days [QUAD CANE As directed] rosuvastatin 5 mg PO DAILY 90 days Tobacco use date assessed: 06/13/23 Fall risk assessment: No Falls in past year Last assessed Fall Risk: 10/06/23 Dental Screening Dental Screen Date: 06/13/23 HPI 3 months f/u HPI Details Patient comes in today for her follow up visit States that she feels okay but has been experiencing some vague, on and off pain under her chin, over her nose and over her upper jaw areas lately - is concerned that these may be related to her previous issues with trigeminal neuralgia States that she still has some pain over the left side of her jaw (TMJ) area but the pain here is mild and mostly manageable Relates that her asthma seems to be acting up more often lately, likely triggered by her spring allergies - would like to have Rx for a nebulizer unit sent [facility] to [facility] States that she had one before but her old unit broke down years ago and she has not needed to use one until recently but recalled then that she does not have one anymore She denies any fever or sore throat; denies any increased headaches or dizziness Denies any exertional chest pains or SOB No nausea/vomiting, no abdominal pain No change in bowel habits noted Would like to get her Cyclobenzaprine Rx refilled; also needs Rx refill for her Poise pads She had some follow up labs done back in July 2023 [facility] Medical History (Updated 10/06/23 @ 13:04 by Cisco Aleman MD) Primary osteoarthritis, right shoulder Obesity (BMI 30-39.9) Alzheimer's dementia Asthma Allergic rhinitis Bilateral lower extremity edema Pure hypercholesterolemia Trigeminal neuralgia Benign essential hypertension Surgical History History of surgery History of bladder surgery History of arthroplasty of left knee History of arthroplasty of right knee History of tubal ligation History of cholecystectomy Family History Father Asthma Mother Colon cancer Sister Breast cancer Social History Housing: Apartment Alcohol intake: never Patient Tobacco Use Status: Never used Tobacco e-Cigarette/Vaping Use: Never Used Second Hand Smoke Exposure: Yes service: No Current occupational status: disabled Cognitive needs: No Hearing needs: No Vision needs: Yes Questionnaire Thrive Questionnaire Date Thrive assessed: 06/13/23 SUSHIL-7 AMB Questionnaire SUSHIL-7 Date SUSHIL - 7 assessed: 06/13/23 Source: Developed by Drs. Terence Ring, Maci Colunga, Abraham Infante and colleagues, with an educational vernon from [employer]. Review of Systems Const Reports as per HPI, Denies chills, Reports fatigue, Denies fever(s) and Denies headache(s) (better controlled lately) ENT Details: (+) on and off vague pains under her chin, on her nose and over her upper maxillary areas Denies dysphagia, Denies dizziness, Denies otalgia, Denies facial pain, Denies headache(s) (better controlled lately), Denies neck pain, Denies odynophagia and Denies sore throat Card Denies chest pain, Denies palpitations and Denies dyspnea Resp Denies cough, Denies dyspnea and Denies wheezing GI Denies abdominal pain, Denies constipation, Denies dysphagia, Denies heartburn, Denies diarrhea, Denies nausea, Denies odynophagia and Denies vomiting Denies difficulty voiding, Denies nocturia, Denies dysuria and Denies urinary urgency Musc Denies back pain, Reports arthralgias (right shoulder - see HPI) and Denies neck pain Skin/Breast Denies rash Neuro Denies behavioral changes, Denies dizziness, Denies headache(s) (better controlled lately) and Reports memory loss (stable) Psych Denies behavioral changes and Reports memory loss (stable) Endo Reports fatigue and Denies palpitations Aller/Immun Denies wheezing Physical exam (Primary Care) Vital Signs: Last Vital Signs Pulse 60 10/06/23 11:45 BP 150/82 H 10/06/23 11:45 Pulse Ox 97 10/06/23 11:45 Oxygen Delivery Method Room Air 10/06/23 11:45 BMI result Body Mass Index 31.3 Tobacco/Smoking Status: Tobacco use Status Tobacco use date assessed 06/13/23 10/06/23 11:46 Patient Tobacco Use Status Never used Tobacco 10/06/23 11:46 e-Cigarette/Vaping Use Never Used 10/06/23 11:46 Thrive Assessment: Date of Thrive Assessment Date Thrive assessed 06/13/23 10/06/23 11:46 Const General: no acute distress and alert HENMT Ears: TM's normal bilaterally and EAC's normal Throat: Yes posterior oropharynx normal and Yes tonsils normal (no TP congestion noted) Neck Neck: Yes no lymphadenopathy and Yes supple Thyroid: Thyroid normal Lymphatic: no lymphadenopathy noted Resp Auscultation: clear to auscultation bilaterally, no rales and no wheezes Cardio Rate: regular rate Rhythm: regular rhythm Heart sounds: no murmurs GI Palpation (GI): Soft to palpation, nontender, no guarding and not rigid Auscultation: normal bowel sounds Extrem General: Yes no clubbing, cyanosis or edema Right upper extremity: shoulder/upper arm Details: tenderness Location: of the A-C joint and abnormal ROM (unable to raise arm above shoulder level due to pain) Details: pain with active ROM Results Reviewed Results Reviewed: Laboratory Tests 07/11/23 07/11/23 12:05 12:12 WBC 4.8 Hgb 12.7 Hct 39.3 Plt Count 190 Sodium 141 Potassium 3.9 Creatinine 0.77 Estimated GFR > 60 Fasting Glucose 96 Hemoglobin A1c % 5.8 Calcium 9.5 AST 14 ALT 10 Triglycerides 124 Cholesterol 243 H LDL Cholesterol, Calc 150 H HDL Cholesterol 69 Vitamin B12 545 25-OH Vitamin D Total 31.2 TSH 1.51 Ur Specific [place] 1.025 Urine Protein Trace Urine Glucose (UA) Negative Urine Blood Negative Urine Nitrite Negative Ur Leukocyte Esterase Moderate (2+) H Assessment and Plan Assessment & Plan (1) Trigeminal neuralgia: Comment: S/P percutaneous retrogasserian glycerol rhizotomy x 2, with only partial and temporary relief Code(s): G50.0 - Trigeminal neuralgia Plan: Primarily left-sided - states that her symptoms have been mostly controlled for a while now Patient failed percutaneous retrogasserian glycerol rhizotomy x 2 and was advised by neurosurgery that additional surgery is no longer an option Was last seen by neurosurgery (Dr. Gregory) on 01/27/21 for follow up and reportedly advised then that her limited treatment options remaining include continuing medication management, repeat glycerol rhizotomy or gamma knife although advised that all of these do not really guarantee much in terms of symptom relief at this time She has been referred to a Dr. Medina at [facility] by Dr. Gregory and underwent some type of laser surgery (gamma knife?), which she states provided her with temporary relief but she has not been able to return there for follow up as her insurance has declined to cover any further appts Her son states that he has appealed this but have not heard back from her insurance so far Continue Carbamazepine 200 mg BID, Cyclobenzaprine 5 mg TID and Gabapentin 600 mg TID She is also advised that her recent pains under her chin, on her nose and upper maxillary areas are unlikely related to her trigeminal neuralgia due to their location and the nature of her symptoms; she should however, check back with her dentist to have them ensure that she is not having any undiagnosed chronic gum issues (states that all of her teeth are dentures) (2) Pure hypercholesterolemia: Code(s): E78.00 - Pure hypercholesterolemia, unspecified Plan: Results of her labs done back in July 2023 reviewed and discussed with patient - is cautioned that her cholesterol levels have increased from previous Reinforced low cholesterol diet Continue Rosuvastatin 5 mg QD and Ezetimibe 10 mg QD Will recheck her labs and fasting lipids in 4 months for follow up (3) Benign essential hypertension: Code(s): I10 - Essential (primary) hypertension Plan: Reinforced low sodium diet - goal is systolic BP of at least 140 to 150 mm or less Continue Losartan 50 mg 1.5 tablets (75 mg) QD, Metoprolol 25 mg BID and HCTZ 25 mg QD Her family is reminded to help monitor her blood pressure regularly (4) Dizziness of unknown etiology: Code(s): R42 - Dizziness and giddiness Plan: Appears RESOLVED Was likely due to paroxysmal vertigo - continue Meclizine 25 mg TID PRN (5) Asthma: Code(s): J45.909 - Unspecified asthma, uncomplicated Qualifiers: Asthma severity: mild Asthma persistence: intermittent Asthma complication type: uncomplicated Qualified Code(s): J45.20 - Mild intermittent asthma, uncomplicated Plan: Stable - continue Albuterol HFA 1 to 2 puffs 4 times a day as needed Per request, will send / fax Rx for a compact nebulizer unit to [facility] (6) Alzheimer's dementia: Code(s): G30.9 - Alzheimer's disease, unspecified; F02.80 - Dementia in other diseases classified elsewhere, unspecified severity, without behavioral disturbance, psychotic disturbance, mood disturbance, and anxiety Plan: Patient used to see Dr. Cano for follow up but has not been back to see him in a few years She was referred back to neurology for further management / care and is scheduled to see them in July 2023 - not sure if she was seen as we have not yet received any reports from neurology (7) Allergic rhinitis: Code(s): J30.9 - Allergic rhinitis, unspecified Qualifiers: Allergic rhinitis trigger: unspecified Allergic rhinitis seasonality: unspecified Qualified Code(s): J30.9 - Allergic rhinitis, unspecified Plan: Continue Cetirizine 10 mg QD PRN and Fluticasone 50 mcg nasal spray QD PRN (8) Osteopenia: Code(s): M85.80 - Other specified disorders of bone density and structure, unspecified site Qualifiers: Osteopenia location: unspecified Qualified Code(s): M85.80 - Other specified disorders of bone density and structure, unspecified site Plan: Results of her BMD done in January 2023 revealed (+) osteopenia, with the lowest T score of -1.9 in the femoral neck - this is her index screen She is advised to continue with her daily calcium and vitamin D supplements Fall precautions reinforced as well Will continue to monitor her BMD regularly every 2 to 3 years (9) Primary osteoarthritis, right shoulder: Code(s): M19.011 - Primary osteoarthritis, right shoulder Plan: She is advised that her shoulder x-rays done a few months ago revealed (+) advanced OA changes She is scheduled to be seen by orthopedics for her shoulder issues in a couple of weeks (10) Urinary incontinence: Code(s): R32 - Unspecified urinary incontinence Qualifiers: Urinary Incontinence type: unspecified incontinence Qualified Code(s): R32 - Unspecified urinary incontinence Plan: Per request, Rx for Poise pads faxed over to [facility] (11) Obesity (BMI 30-39.9): Code(s): E66.9 - Obesity, unspecified Plan: Reinforced diet; exercise and weight loss are unrealistic given patient's physical issuse/symptoms and comorbidities Plan Follow up in 4 months Orders: Orders Lipid Panel 4 Months E78.00 - Pure hypercholesterolemia, unspecified Complete Blood Count Auto Diff 4 Months D64.9 - Anemia, unspecified Comprehensive [place]. Panel Fast 4 Months E78.00 - Pure hypercholesterolemia, unspecified Medications: New incontinence pad, liner, disp (Poise Pads) As directed 72 ea 12RF R32 - Unspecified urinary incontinence nebulizers (Compact Compressor Nebulizer) As directed 3 to 4 times a day as needed 1 ea 0RF J45.20 - Mild intermittent asthma, uncomplicated Refilled cyclobenzaprine 5 mg PO TID 30 days PRN 90 tabs 0RF muscle spasms/ TMJ pain Coding Level of Care Code Est Pt Level 4 (28110) Diagnoses Trigeminal neuralgia G50.0 Pure hypercholesterolemia E78.00 Benign essential hypertension I10 Dizziness of unknown etiology R42 Mild intermittent asthma without complication J45.20 Asthma severity: mild Asthma persistence: intermittent Asthma complication type: uncomplicated Alzheimer's dementia G30.9; F02.80 Allergic rhinitis, unspecified seasonality, unspecified trigger J30.9 Allergic rhinitis trigger: unspecified Allergic rhinitis seasonality: unspecified Osteopenia, unspecified location M85.80 Osteopenia location: unspecified Primary osteoarthritis, right shoulder M19.011 Urinary incontinence, unspecified type R32 Urinary Incontinence type: unspecified incontinence Obesity (BMI 30-39.9) E66.9
== END 2023-10-06 12:31 | disposition home or self-care (01) ==
PROVIDERS: PCP Internal Medicine; Visit Provider Internal Medicine
DX: G50.0 Trigeminal neuralgia (principal); E78.00 Pure hypercholesterolemia, unspecified; I10 Essential (primary) hypertension; R42 Dizziness and giddiness; J45.20 Mild intermittent asthma, uncomplicated; G30.9 Alzheimer's disease, unspecified; F02.80 Dementia in other diseases classified elsewhere, unspecified severity, without behavioral disturbance, psychotic disturbance, mood disturbance, and anxiety; J30.9 Allergic rhinitis, unspecified; M85.80 Other specified disorders of bone density and structure, unspecified site; M19.011 Primary osteoarthritis, right shoulder; R32 Unspecified urinary incontinence; E66.9 Obesity, unspecified
CPT/HCPCS: 99214

== ENCOUNTER 2023-10-25 10:06 | Outpatient (REF) | payer OTHER, SELFPAY ==
--- NOTE | ~2023-10-25 | XR_ITS ---
EXAMINATION: XR SHOULDER, RIGHT CLINICAL INFORMATION: Pain. COMPARISON: 06/30/2023 TECHNIQUE: 3 views of the right shoulder. FINDINGS: Advanced degenerative changes in the acromioclavicular joint with joint space narrowing and hypertrophic change. Degenerative changes in the imaged upper thoracic spine. Moderate degenerative changes in the glenohumeral joint. Hypertrophic change along the greater tuberosity. Bones are diffusely demineralized. XR/XR shoulder RT min 2V IMPRESSION: Degenerative changes as detailed above.
== END 2023-10-25 10:07 | disposition home or self-care (01) ==
LOC: HO.HOSX 10:06
PROVIDERS: Visit Provider Physician Assistant
DX: M19.011 Primary osteoarthritis, right shoulder (principal)
CPT/HCPCS: 73030; 99202

== ENCOUNTER 2023-10-25 10:59 | Outpatient (AMB) | payer OTHER, SELFPAY ==
--- NOTE | 2023-10-25 11:15 | MHC.OFFVIS ---
Intake Visit Reasons: New Pt - right shoulder pain Intake Note: Regina is a 78 year old right hand dominant female who presents today as a new patient for a evaluation of her right shoulder pain. Patient reports ongoing pain for about a year with no previous treatment. She expresses that her ROM is limited. Pain is worse with movement and her pain radiates up to her neck. Allergies aspirin Adverse Reaction (Unknown, Verified 10/25/23 12:04) stomach upset atorvastatin Adverse Reaction (Unknown, Verified 10/25/23 12:04) significantly elevated LFTs HPI HPI New Pt - right shoulder pain: Details: 78-year-old right hand dominant female who presents in the office today, as a new patient, for an evaluation of right shoulder pain. The patient was seen by her PCP on 06/13/2023 with a complaint of increasing right shoulder pain with limited ROM. While in the office today the patient reports ongoing pain for about a year, since 2022. She denies any prior treatment. She claims her ROM is limited with an increase in pain with movement. She also reports her pain radiates to her neck. [facility] Medical History (Updated 10/25/23 @ 13:10 by Tona Pemberton) Primary osteoarthritis, right shoulder Obesity (BMI 30-39.9) Alzheimer's dementia Asthma Allergic rhinitis Bilateral lower extremity edema Pure hypercholesterolemia Trigeminal neuralgia Benign essential hypertension Surgical History History of surgery History of bladder surgery History of arthroplasty of left knee History of arthroplasty of right knee History of tubal ligation History of cholecystectomy Family History Father Asthma Mother Colon cancer Sister Breast cancer Social History Housing: Apartment Alcohol intake: never Patient Tobacco Use Status: Never used Tobacco e-Cigarette/Vaping Use: Never Used Second Hand Smoke Exposure: Yes service: No Current occupational status: disabled Cognitive needs: No Hearing needs: No Vision needs: Yes Review of Systems Const All systems reviewed & are unremarkable except as noted in HPI and below Physical Exam Const General: cooperative and no acute distress Orientation/consciousness: patient oriented x3 Resp Effort & Inspection: normal respiratory effort and able to speak in complete sentences Cardio Peripheral pulses: Peripheral pulses 2+ throughout Skin General skin exam: no rashes or lesions noted Neuro General: patient oriented x3 Extrem Other: Right shoulder: Forward flexion and abduction to 90 degrees. External rotation to end range. Able to reach greater trochanter. Pain with cross-body reach. 3/5 strength with empty can. Negative drop arm. NVI. Assessment & Plan Assessment & Plan (1) Arthritis of right glenohumeral joint: Code(s): M19.011 - Primary osteoarthritis, right shoulder Category: Medical Plan Ms. Oliva Mendoza is an 78-year-old right hand dominant female who presents in the office today, as a new patient, for an evaluation of right shoulder pain. The patient was seen by her PCP on 06/13/2023 with a complaint of increasing right shoulder pain with limited ROM. While in the office today the patient reports ongoing pain for about a year, since 2022. She denies any prior treatment. She claims her ROM is limited with an increase in pain with movement. She also reports her pain radiates to her neck. We discussed the role of physical therapy and cortisone injections. The cortisone injection would be a glenohumeral joint injection to be done at the hospital. The patient has elected to defer the injection at this time, but she would like to proceed with physical therapy. A referral has been placed in the office today. If after completing physical therapy the patient is not better, we would discuss a referral for her to obtain a glenohumeral joint injection. Follow-up will be in six weeks after completion of physical therapy, or sooner if needed. X-rays of the right shoulder which were obtained while in the office today and were reviewed by me, Kati Sharp PA-C, revealed glenohumeral joint arthritis. X-rays of the right shoulder, obtained on 06/30/2023, revealed: 1. Advanced degenerative changes in the acromioclavicular joint with joint space narrowing and hypertrophic change. 2. Degenerative changes in the imaged upper thoracic spine. Moderate degenerative changes in the glenohumeral joint. Humeral head is somewhat inferiorly located relative to the glenoid. Orders: Orders XR shoulder RT min 2V Today M25.519 - Pain in unspecified shoulder PT Evaluation and Treatment Today M19.011 - Primary osteoarthritis, right shoulder Patient Instructions: Scribed by Tona Pemberton, spanish medical interpreter, for Kati Sharp PA-C on 10/25/2023 at 11:01 am, EST. Coding Level of Care Code New Pt Level 4 (50094) Diagnoses Arthritis of right glenohumeral joint M19.011
== END 2023-10-25 12:30 | disposition home or self-care (01) ==
PROVIDERS: PCP Internal Medicine; Visit Provider Physician Assistant
DX: M19.011 Primary osteoarthritis, right shoulder (principal)
CPT/HCPCS: 99204

== ENCOUNTER 2023-12-15 13:43 | Outpatient (AMB) | payer OTHER, SELFPAY ==
--- NOTE | 2023-12-15 13:57 | MHC.PC.OV ---
Vital Signs 12/15/23 14:01 12/15/23 14:11 Height 5 ft 6 in Weight 195 lb 4 oz BMI 31.5 BP 192/86 H 162/80 H Blood Pressure Location Rt brachial Lt brachial Position Sitting Sitting Pulse 72 Pulse Source Pulse Oximeter Temp 97.9 F Temp Source Temporal Artery Scan Pulse Oximetry (%) 93 Oxygen Delivery Method Room Air Intake Visit Reasons: PE Intake Note: Physical Cylinder Valve Repairer Required: Yes Cylinder Valve Repairer Name: Maik (son) Allergies aspirin Adverse Reaction (Unknown, Verified 10/25/23 12:04) stomach upset atorvastatin Adverse Reaction (Unknown, Verified 10/25/23 12:04) significantly elevated LFTs Medication List - Last Reconciled 12/15/23 by Stacy Cuevas PA-C albuterol sulfate 90 mcg/actuation 2 puffs inhalation Q6H PRN aspirin 81 mg PO DAILY [BACK BRACE As directed] calcium carbonate (Oyster Shell Calcium) 500 mg PO DAILY 90 days carbamazepine 200 mg PO BID 30 days cetirizine 10 mg PO DAILY cholecalciferol (vitamin D3) 25 mcg PO DAILY ezetimibe 10 mg PO DAILY 90 days fluticasone propionate 50 mcg/actuation 1 spray intranasal DAILY gabapentin 600 mg PO TID 30 days hydrochlorothiazide 25 mg PO DAILY incontinence pad, liner, disp (Poise Pads) As directed losartan 75 mg (1.5 x 50 mg) PO DAILY metoprolol tartrate 25 mg PO BID 30 days miscellaneous medical supply Back Brace miscellaneous medical supply Quad Cane nebulizers (Compact Compressor Nebulizer) As directed 3 to 4 times a day as needed omeprazole 20 mg PO DAILY 90 days oxybutynin chloride ER 10 mg PO DAILY 90 days [QUAD CANE As directed] rosuvastatin 5 mg PO DAILY 90 days Tobacco use date assessed: 06/13/23 Dental Screening Dental Screen Date: 06/13/23 HPI PE HPI Details Patient is an 78-year-old female with a significant past medical history of dementia, trigeminal neuralgia, hypertension, hyperlipidemia, impaired fasting glucose who presents today for a physical exam. She normally follows at a different site. Last saw pcp in September. -She is acompanied by her son, Maik Silva. -She states she is here today for a physical because she needs it for adult foster care. CV: Blood pressure today in the office is 162/80. She states it is elevated today but she did not take her medications regularly. She states that she monitors at home a few times a week and overall normal. They did not bring in any readings today. She is currently on losartan 75 mg, metoprolol 25 mg twice a day, hydrochlorothiazide 25 mg daily. Her cholesterol is controlled with Zetia 10 mg and Crestor 5 mg. Denies any chest pain, shortness on breath or palpitations. Neuro: Being managed with carbamazepine 200 mg twice a day, gabapentin 600 mg 3 times a day and was previously on cyclobenzaprine. Dementia is stable. She is following with [facility] neurology. Next appointment July 13, 2024. Son has not noted any signficant changes with her memory or mood. Endo: No polyuria or polydipsia. Last A1c was 5.8. Mammogram: Up-to-date, due in January. Bone density: Up-to-date, 2022-osteopenia Colonoscopy: she declines but wants to do cologuard [facility] Medical History (Updated 12/15/23 @ 14:37 by Stacy Cuevas PA-C) Primary osteoarthritis, right shoulder Obesity (BMI 30-39.9) Alzheimer's dementia Asthma Allergic rhinitis Bilateral lower extremity edema Pure hypercholesterolemia Trigeminal neuralgia Benign essential hypertension Surgical History History of surgery History of bladder surgery History of arthroplasty of left knee History of arthroplasty of right knee History of tubal ligation History of cholecystectomy Family History Father Asthma Mother Colon cancer Sister Breast cancer Social History Housing: Apartment Alcohol intake: never Patient Tobacco Use Status: Never used Tobacco e-Cigarette/Vaping Use: Never Used Second Hand Smoke Exposure: Yes service: No Current occupational status: disabled Cognitive needs: No Hearing needs: No Vision needs: Yes Questionnaire Thrive Questionnaire Date Thrive assessed: 06/13/23 SUSHIL-7 AMB Questionnaire SUSHIL-7 Date SUSHIL - 7 assessed: 06/13/23 Source: Developed by Drs. Terence Ring, Maci Colunga, Abraham Infante and colleagues, with an educational vernon from [employer]. Physical exam (Primary Care) Vital Signs: Last Vital Signs Temp 97.9 F 12/15/23 14:01 Pulse 72 12/15/23 14:01 BP 162/80 H 12/15/23 14:11 Pulse Ox 93 12/15/23 14:01 Oxygen Delivery Method Room Air 12/15/23 14:01 BMI result Body Mass Index 31.5 Tobacco/Smoking Status: Tobacco use Status Tobacco use date assessed 06/13/23 12/15/23 14:04 Patient Tobacco Use Status Never used Tobacco 12/15/23 14:04 e-Cigarette/Vaping Use Never Used 12/15/23 14:04 Thrive Assessment: Date of Thrive Assessment Date Thrive assessed 06/13/23 12/15/23 14:04 Const Orientation/consciousness: patient oriented x3 HENMT Ears: hearing grossly normal bilaterally and TM's normal bilaterally General nose exam: No nasal polyps present Face and sinus: Yes sinuses nontender Mouth: Normal oral and palatal mucosa present Eyes Pupils: Equal, round and reactive pupils present EOM: EOMs intact bilaterally Neck Neck: Yes full ROM and Yes no lymphadenopathy Thyroid: Thyroid normal Chest Chest palpation & inspection: normal inspection of the chest Resp Auscultation: clear to auscultation bilaterally Cardio Rate: regular rate Rhythm: regular rhythm Heart sounds: S1 normal heart sound present and S2 normal heart sound present Peripheral pulses: Peripheral pulses 2+ throughout GI Other: Soft, nontender Auscultation: normal bowel sounds Rectal Exam - Female: deferred General: Yes no CVA tenderness Back/Spine/Pelvis Other: Nontender Back: no CVA tenderness Skin General skin exam: no rashes or lesions noted Neuro General: patient oriented x3, gait normal, CN's II-XI intact bilaterally and deep tendon reflexes 2+ bilaterally Cranial nerves: Yes Equal, round and reactive pupils present Motor exam (neuro): 5/5 motor strength present throughout Sensory Exam: double simultaneous stimulation for sensation normal Coordination: [id number] test normal and Romberg test negative Extrem General: Yes normal to inspection and Yes full ROM Psych Affect: normal affect Attitude: cooperative Thought process: Normal thought process present Thought content: Normal thought content present Insight: Good insight present (Psych) Judgement: Good judgement present (Psych) Results Reviewed Results Reviewed: Laboratory Tests 07/11/23 12:12 WBC 4.8 RBC 4.48 Hgb 12.7 Plt Count 190 Sodium 141 Potassium 3.9 Chloride 106 Carbon Dioxide 30 H Anion Gap 9 L BUN 11 Creatinine 0.77 Estimated GFR > 60 Hemoglobin A1c % 5.8 Triglycerides 124 Cholesterol 243 H LDL Cholesterol, Calc 150 H HDL Cholesterol 69 TSH 1.51 Assessment and Plan Assessment & Plan (1) Routine general medical examination at a health care facility: Code(s): Z00.00 - Encounter for general adult medical examination without abnormal findings Plan: HM reviewed cologuard ordered reports immunizations UTD reviewed pts labs (2) Benign essential hypertension: Code(s): I10 - Essential (primary) hypertension Plan: bp elevated today and at last visit with pcp. pt states not taking her medications today but will take them when she gets home. She (and Maik) will monitor bps for the next week and let us know (3) Pure hypercholesterolemia: Code(s): E78.00 - Pure hypercholesterolemia, unspecified Plan: reviewed last lipids. She is going to work on a healthier diet. repeat labs are already in the system. (4) Alzheimer's dementia: Code(s): G30.9 - Alzheimer's disease, unspecified; F02.80 - Dementia in other diseases classified elsewhere, unspecified severity, without behavioral disturbance, psychotic disturbance, mood disturbance, and anxiety Plan: stable (5) Prediabetes: Code(s): R73.03 - Prediabetes Plan: advised to reduce carb and sugar intake. Orders: Referrals Cologuard Test Z12.11 - Encounter for screening for malignant neoplasm of colon, Z12.12 - Encounter for screening for malignant neoplasm of rectum Medications: New levocetirizine (Xyzal) 5 mg PO DAILY 90 tabs 3RF Discontinued cetirizine Discontinued Reason: Doctor's Order 10 mg PO DAILY 28 tabs 0RF Coding Level of Care Code Est Pt Prev Care >65y(85583) Diagnoses Routine general medical examination at a health care facility Z00.00 Benign essential hypertension I10 Pure hypercholesterolemia E78.00 Alzheimer's dementia G30.9; F02.80 Prediabetes R73.03
[2023-12-15 14:01] VITALS: BP 192/86; PULSE 72; TEMP 36.6; O2SAT 93; BMI 31.5
[2023-12-15 14:11] VITALS: BP 162/80
== END 2023-12-15 14:36 | disposition home or self-care (01) ==
PROVIDERS: PCP Internal Medicine; Visit Provider Physician Assistant
DX: Z00.00 Encounter for general adult medical examination without abnormal findings (principal); G30.9 Alzheimer's disease, unspecified; F02.80 Dementia in other diseases classified elsewhere, unspecified severity, without behavioral disturbance, psychotic disturbance, mood disturbance, and anxiety; I10 Essential (primary) hypertension; E78.00 Pure hypercholesterolemia, unspecified; R73.03 Prediabetes
CPT/HCPCS: 99397

== ENCOUNTER 2024-02-02 10:09 | Outpatient (REF) | payer OTHER, SELFPAY ==
--- NOTE | ~2024-02-02 | MM_ITS ---
EXAMINATION: MM SCREENING DIGITAL BREAST TOMOSYNTHESIS, BILATERAL CLINICAL INFORMATION: Screening. Asymptomatic. COMPARISON: Mammography: Comparison is made with available priors TECHNIQUE: Digital breast mammography with tomosynthesis is performed in both the craniocaudal and mediolateral oblique views along with computer-aided detection (CAD). FINDINGS: There are scattered areas of fibroglandular density (ACR BI-RADS breast composition Category b). There are no significant masses, abnormal calcifications, or other abnormalities. MM/MM tomosynthesis screening BI IMPRESSION: No mammographic evidence of malignancy. ASSESSMENT: BI-RADS BI-RADS 1 - Negative RECOMMENDATION: Routine annual mammography screening. 1 year F/U This examination should not preclude the clinical evaluation of a suspicious palpable abnormality. This patient's information was entered into a reminder system with a target due date for their next mammogram. Electronically signed by: Sandra Leger DO 02/13/2024 05:34 PM EDT
[2024-02-02 11:06] LABS: MANUAL DIFF FLAG NO
[2024-02-02 11:17] LABS: Basophils Absolute Auto 0.1 X10*3/uL (0.0-0.2); Eosinophils Absolute Auto 0.2 X10*3/uL (0.0-0.4); Eosinophils Percent Auto 4.1 % (0-4); Hematocrit 37.6 % (37.0-47.0); Hemoglobin 12.4 g/dl (12.0-16.0); Imm Gran Abs Auto 0.01 X10*3/uL (0.00-0.03); Imm Gran Pct Auto 0.2 % (0.0-0.4); Lymphocytes Absolute Auto 2.4 X10*3/uL (1.2-4.9); Lymphocytes Percent Auto 49.2 % (20-40); Mean Corpuscular Volume 88.1 fL (80.0-98.0); Mean Platelet Volume 11.1 fL (9.4-12.3); Monocytes Absolute Auto 0.3 X10*3/uL (0.1-1.2); Monocytes Percent Auto 5.4 % (2-11); Neutrophils Absolute Auto 1.9 x10*3/uL (2.0-8.3); Neutrophils Percent Auto 40.1 % (45-73); Platelet Count 170 X10*3/uL (160-400); Red Blood Count 4.27 X10*6/uL (4.20-5.50); Red Cell Distribution Width 14.7 % (11.0-16.0); White Blood Count 4.8 X10*3/uL (4.8-10.8)
[2024-02-02 11:30] LABS: Alanine Aminotransferase 12 U/L (0-31); Alkaline Phosphatase 132 U/L (39-117); Anion Gap 10 (12-20); Aspartate Amino Transferase 16 U/L (5-31); Bilirubin Total 0.4 mg/dL (0.0-1.0); Blood Urea Nitrogen 16 mg/dL (9-16); Calcium 9.7 mg/dL (8.4-10.2); Carbon Dioxide 28 mmol/L (22-29); Chloride 108 mmol/L (96-108); Cholesterol 196 mg/dL (<200); Estimated Glomerular Filt Rate > 60; Glucose Fasting 108 mg/dL (60-99); HDL Cholesterol 63 mg/dL (>40); LDL Cholesterol Calculated 110 mg/dL (<100); Sodium 142 mmol/L (135-145); Triglycerides 115 mg/dL (<150)
== END 2024-02-02 10:10 | disposition home or self-care (01) ==
LOC: HO.MAMMO 10:09
PROVIDERS: PCP Internal Medicine; Visit Provider Internal Medicine
DX: Z12.31 Encounter for screening mammogram for malignant neoplasm of breast (principal); D64.9 Anemia, unspecified; E78.00 Pure hypercholesterolemia, unspecified
CPT/HCPCS: 36415; 77063; 77067; 80053; 80061; 85025

== ENCOUNTER → 2024-02-02 10:15 | Outpatient (BNV) | payer OTHER, SELFPAY | PROVIDERS: PCP Internal Medicine; Visit Provider Internal Medicine | DX: Z12.31 Encounter for screening mammogram for malignant neoplasm of breast (principal) | CPT/HCPCS: 77063; 77067 ==

== ENCOUNTER 2024-02-07 12:32 | Outpatient (AMB) | payer OTHER, SELFPAY ==
--- NOTE | 2024-02-07 12:36 | MHC.PC.OV ---
Vital Signs 02/07/24 12:47 02/07/24 13:39 Height 5 ft 6 in Weight 194 lb 6 oz BMI 31.4 BP 144/82 H 136/78 Blood Pressure Location Lt brachial Lt brachial Position Sitting Sitting Pulse 75 Pulse Source Pulse Oximeter Pulse Oximetry (%) 95 Oxygen Delivery Method Room Air Intake Visit Reasons: 4mof\u Layaway Clerk Required: No Accompanied by: Self / Same As Patient Allergies aspirin Adverse Reaction (Unknown, Verified 02/07/24 13:40) stomach upset atorvastatin Adverse Reaction (Unknown, Verified 02/07/24 13:40) significantly elevated LFTs Medication List - Last Reconciled 02/07/24 by Cisco Aleman MD albuterol sulfate 90 mcg/actuation 2 puffs inhalation Q6H PRN aspirin 81 mg PO DAILY [BACK BRACE As directed] calcium carbonate (Oyster Shell Calcium) 500 mg PO DAILY 90 days carbamazepine 200 mg PO BID 30 days cholecalciferol (vitamin D3) 25 mcg PO DAILY ezetimibe 10 mg PO DAILY 90 days fluticasone propionate 50 mcg/actuation 1 spray intranasal DAILY gabapentin 600 mg PO TID 30 days hydrochlorothiazide 25 mg PO DAILY incontinence pad, liner, disp (Poise Pads) As directed levocetirizine (Xyzal) 5 mg PO DAILY losartan 75 mg (1.5 x 50 mg) PO DAILY metoprolol tartrate 25 mg PO BID 30 days miscellaneous medical supply Back Brace miscellaneous medical supply Quad Cane nebulizers (Compact Compressor Nebulizer) As directed 3 to 4 times a day as needed omeprazole 20 mg PO DAILY 90 days oxybutynin chloride ER 10 mg PO DAILY 90 days [QUAD CANE As directed] rosuvastatin 5 mg PO DAILY 90 days Tobacco use date assessed: 02/07/24 Fall risk assessment: No Falls in past year Last assessed Fall Risk: 02/07/24 Dental Screening Dental Screen Date: 02/07/24 Did you have a dental visit in the last 12 months?: No Did you have a dental problem in the last 6 months where you did not have access to dental care?: No Was dental information given to patient?: No HPI 4mof\u HPI Details Patient comes in today for her follow up visit States that the left side of her face has been feeling numb for the past 1 week now Feels that her left eye is swollen at times lately and states that she has been experiencing on and off left ear pain over the past few days - is concerned that she may have an ear infection going on at this time She has also noticed that she seems to be drooling somewhat from the left side of her mouth when she is drinking recently She denies any recent increased headaches or dizziness Denies any chest pains, no increased SOB No nausea/vomiting, no abdominal pain No change in bowel habits noted States that she needs her Rx for incontinence pads renewed She had her follow up labs done a few days ago - to discuss her results [facility] Medical History (Updated 02/07/24 @ 18:11 by Cisco Aleman MD) Primary osteoarthritis, right shoulder Obesity (BMI 30-39.9) Alzheimer's dementia Asthma Allergic rhinitis Bilateral lower extremity edema Pure hypercholesterolemia Trigeminal neuralgia Benign essential hypertension Surgical History History of surgery History of bladder surgery History of arthroplasty of left knee History of arthroplasty of right knee History of tubal ligation History of cholecystectomy Family History Father Asthma Mother Colon cancer Sister Breast cancer Social History Housing: Apartment Alcohol intake: never Patient Tobacco Use Status: Never used Tobacco e-Cigarette/Vaping Use: Never Used Second Hand Smoke Exposure: Yes service: No Current occupational status: disabled Cognitive needs: No Hearing needs: No Vision needs: Yes Questionnaire PHQ-9 Over the last 2 weeks, how often have you been bothered by any of the following problems? 1. Little interest or pleasure in doing things: several days 2. Feeling down, depressed, or hopeless: several days 3. Trouble falling or staying asleep, or sleeping too much: not at all 4. Feeling tired or having little energy: not at all 5. Poor appetite or overeating: not at all 6. Feeling bad about yourself - or that you are a failure or have let yourself or your family down: not at all 7. Trouble concentrating on things, such as reading the newspaper or watching television: not at all 8. Moving or speaking so slowly that other people could have noticed. Or the opposite - being so fidgety or restless that you have been moving around a lot more than usual: not at all 9. Thoughts that you would be better off or of hurting yourself in some way: not at all Total score: 2 Depression Screening Interpretation: Negative Depression Screening Done: Yes 74917 - PHQ-9 Billing: Yes Source: Developed by Drs. Terence Ring, Maci Colunga, Abraham Infante and colleagues, with an educational vernon from [employer]. Thrive Questionnaire Date Thrive assessed: 02/07/24 I am a: Patient What is your living situation today?: I have a steady place to live Within the past 12 months, did the food you bought not last and you didn't have the money to get more?: Never true Within the past 12 months, did you worry whether your food would run out before you got money to buy more?: Never true Do you have trouble paying for medicines?: No Do you have trouble getting transportation to medical appointments?: No Do you have trouble paying your heating and electricity bill?: No Do you have trouble taking care of your child, family member or friend?: No Do you have trouble with day-to-day activities such as bathing, preparing meals, shopping, managing finances, etc.?: No Are you currently unemployed and looking for a job?: No Are you interested in more education?: No Please select the resources that you would like help with: None Currently or been in a relationship where the following occur: No concerns reported THRIVE Score: 0 AUDIT C Alcohol Use Questionnaire (AUDIT-C) 1. How often do you have a drink containing alcohol?: Never 3. How often do you have six or more drinks on one occasion?: Never Total Score: 0 Score Reviewed/Action Taken: Yes SUSHIL-7 AMB Questionnaire SUSHIL-7 Date SUSHIL - 7 assessed: 02/07/24 Feeling nervous, anxious, or on edge: 0 = Not at all Not being able to stop or control worryin = Not at all Worrying too much about different things: 0 = Not at all Trouble relaxin = Not at all Being so restless that it is hard to sit still: 0 = Not at all Becoming easily annoyed or irritable: 0 = Not at all Feeling afraid as if something awful might happen: 0 = Not at all Total SUSHIL-7 score (0-4 normal; 5-9 mild; 10-14 moderate; 15-21 severe): 0 Source: Developed by Drs. Terence Ring, Maci Colunga, Abraham Infante and colleagues, with an educational vernon from [employer]. Review of Systems Const Denies chills, Reports fatigue, Denies fever(s) and Denies headache(s) (better controlled lately) Eyes Details: left eye feels swollen at times lately ENT Details: left side of the face feels numb Denies dysphagia, Denies dizziness, Reports otalgia (on and off in the left ear), Denies facial pain, Denies headache(s) (better controlled lately), Denies neck pain, Denies odynophagia and Denies sore throat Card Denies chest pain, Denies palpitations and Denies dyspnea Resp Denies cough, Denies dyspnea and Denies wheezing GI Denies abdominal pain, Denies constipation, Denies dysphagia, Denies heartburn, Denies diarrhea, Denies nausea, Denies odynophagia and Denies vomiting Denies difficulty voiding, Denies nocturia, Denies dysuria and Denies urinary urgency Musc Denies back pain, Reports arthralgias (right shoulder - see HPI) and Denies neck pain Skin/Breast Denies rash Neuro Denies behavioral changes, Denies dizziness, Denies headache(s) (better controlled lately) and Reports memory loss (stable) Psych Denies behavioral changes and Reports memory loss (stable) Endo Reports fatigue and Denies palpitations Aller/Immun Denies wheezing Physical exam (Primary Care) Vital Signs: Last Vital Signs Pulse 75 02/07/24 12:47 BP 136/78 02/07/24 13:39 Pulse Ox 95 02/07/24 12:47 Oxygen Delivery Method Room Air 02/07/24 12:47 BMI result Body Mass Index 31.4 Tobacco/Smoking Status: Tobacco use Status Tobacco use date assessed 02/07/24 02/07/24 12:55 Patient Tobacco Use Status Never used Tobacco 02/07/24 12:36 e-Cigarette/Vaping Use Never Used 02/07/24 12:36 PHQ-9: PHQ-9 Score PHQ-9: Total score 2 02/07/24 13:33 Depression Screening Interpretation: Negative Thrive Assessment: Date of Thrive Assessment Date Thrive assessed 02/07/24 02/07/24 12:55 Currently or been in a relationship where the following occur: No concerns reported Const General: no acute distress and alert HENMT Other: (+) mild palsy noted on the left side of the face, with a slightly shallow left nasolabial fold Ears: TM's normal bilaterally and EAC's normal Face and sinus: Yes Flattened naso-labial fold present (slightly, on the left side) Throat: Yes posterior oropharynx normal and Yes tonsils normal (no TP congestion noted) Eyes Periorbital: periorbital findings normal Eyelids: No lid lag Conjunctivae: conjunctivae normal Pupils: Equal, round and reactive pupils present EOM: EOMs intact bilaterally Neck Neck: Yes no lymphadenopathy and Yes supple Thyroid: Thyroid normal Lymphatic: no lymphadenopathy noted Resp Auscultation: clear to auscultation bilaterally, no rales and no wheezes Cardio Rate: regular rate Rhythm: regular rhythm Heart sounds: no murmurs GI Palpation (GI): Soft to palpation, nontender, no guarding and not rigid Auscultation: normal bowel sounds Neuro Cranial nerves: Yes Equal, round and reactive pupils present Extrem General: Yes no clubbing, cyanosis or edema Right upper extremity: shoulder/upper arm Details: tenderness Location: of the A-C joint and abnormal ROM (unable to raise arm above shoulder level due to pain) Details: pain with active ROM Office Procedures Flu Questionnaire Does the patient have a severe egg allergy?: No Immunizations Fluarix Triv [id number] (PF) 45 mcg (15 mcg x 3)/0.5 mL IM syringe Performing Provider: Cisco Aleman MD [facility] [place] [facility] Documented (not given) by: HARPER Coello on 02/07/24 12:56 Reason Not Given: Patient Refused Results Reviewed Results Reviewed: Laboratory Tests 02/02/24 11:05 WBC 4.8 Hgb 12.4 Hct 37.6 Plt Count 170 Sodium 142 Potassium 4.0 Creatinine 0.82 Estimated GFR > 60 Fasting Glucose 108 H Calcium 9.7 AST 16 ALT 12 Triglycerides 115 Cholesterol 196 LDL Cholesterol, Calc 110 H HDL Cholesterol 63 Coding Level of Care Code Est Pt Level 4 (70336) Complex EM visit Add On G2211 Diagnoses 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 Trigeminal neuralgia G50.0 Pure hypercholesterolemia E78.00 Benign essential hypertension I10 Mild intermittent asthma without complication J45.20 Asthma severity: mild Asthma persistence: intermittent Asthma complication type: uncomplicated Alzheimer's dementia G30.9; F02.80 Allergic rhinitis, unspecified seasonality, unspecified trigger J30.9 Allergic rhinitis trigger: unspecified Allergic rhinitis seasonality: unspecified Osteopenia, unspecified location M85.80 Osteopenia location: unspecified Primary osteoarthritis, right shoulder M19.011 Urinary incontinence, unspecified type R32 Urinary Incontinence type: unspecified incontinence Obesity (BMI 30-39.9) E66.9 Assessment & Plan Assessment & Plan (1) Facial palsy: Comment: left Code(s): 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 Category: Medical Plan: Will send patient for some additional labs WILLY for further evaluation Discussed that she does appear to have a slightly left facial palsy based on her exam today, and that this may be due to Medina's Palsy but may also be a manifestation of her trigeminal neuralgia Will start her empirically for now on Valtrex 1 gm Q 8 hours x 7 days and Prednisone 20 mg QD x 3 days If symptoms progress, may need to consider repeating a head CT for further evaluation and also neurology referral (2) Trigeminal neuralgia: Comment: S/P percutaneous retrogasserian glycerol rhizotomy x 2, with only partial and temporary relief Code(s): G50.0 - Trigeminal neuralgia Category: Medical Plan: Primarily left-sided - her symptoms have been mostly controlled for a while but now appears to be flaring up again She has failed percutaneous retrogasserian glycerol rhizotomy x 2 and was advised by neurosurgery (Dr. Gregory) that additional surgery is no longer an option Was last seen by neurosurgery (Dr. Gregory) on 01/27/21 for follow up and reportedly advised then that her limited treatment options remaining include continuing medication management, repeat glycerol rhizotomy or gamma knife although advised that all of these do not really guarantee much in terms of symptom relief at this time She has been referred to a Dr. Medina at [facility] by Dr. Gregory and underwent some type of laser surgery (gamma knife?), which she states provided her with temporary relief but she has not been able to return there for follow up as her insurance has declined to cover any further appts with Dr. Medina ([id number]) Her son states that he has appealed this but to no avail Continue Carbamazepine 200 mg BID, Cyclobenzaprine 5 mg TID and Gabapentin 600 mg TID (3) Pure hypercholesterolemia: Code(s): E78.00 - Pure hypercholesterolemia, unspecified Category: Medical Plan: Results of her labs done a few days ago reviewed and discussed with patient - her cholesterol numbers have improved significantly from previous now that she is taking her Rx again Reinforced low cholesterol diet Continue Rosuvastatin 5 mg QD and Ezetimibe 10 mg QD Will recheck her labs and fasting lipids in 4 months for follow up (4) Benign essential hypertension: Code(s): I10 - Essential (primary) hypertension Category: Medical Plan: Reinforced low sodium diet - goal is systolic BP of at least 140 to 150 mm or less Continue Losartan 50 mg 1.5 tablets (75 mg) QD, Metoprolol 25 mg BID and HCTZ 25 mg QD Her family is reminded to help monitor her blood pressure regularly (5) Asthma: Code(s): J45.909 - Unspecified asthma, uncomplicated Category: Medical Qualifiers: Asthma severity: mild Asthma persistence: intermittent Asthma complication type: uncomplicated Qualified Code(s): J45.20 - Mild intermittent asthma, uncomplicated Plan: Stable - continue Albuterol HFA 1 to 2 puffs 4 times a day as needed (6) Alzheimer's dementia: Code(s): G30.9 - Alzheimer's disease, unspecified; F02.80 - Dementia in other diseases classified elsewhere, unspecified severity, without behavioral disturbance, psychotic disturbance, mood disturbance, and anxiety Category: Medical Plan: Patient used to see Dr. Cano for follow up but has not been back to see him in a few years She was referred back to neurology for further management / care and was originally scheduled to see him in July 2023 - not sure if she was seen as we have not yet received any reports from neurology Advised that we will pursue this again if needed and she may need to be referred to him for her current left facial palsy if symptoms persist (7) Allergic rhinitis: Code(s): J30.9 - Allergic rhinitis, unspecified Category: Medical Qualifiers: Allergic rhinitis trigger: unspecified Allergic rhinitis seasonality: unspecified Qualified Code(s): J30.9 - Allergic rhinitis, unspecified Plan: Continue Cetirizine 10 mg QD PRN and Fluticasone 50 mcg nasal spray QD PRN (8) Osteopenia: Code(s): M85.80 - Other specified disorders of bone density and structure, unspecified site Category: Medical Qualifiers: Osteopenia location: unspecified Qualified Code(s): M85.80 - Other specified disorders of bone density and structure, unspecified site Plan: Results of her BMD done in January 2023 revealed (+) osteopenia, with the lowest T score of -1.9 in the femoral neck - this is her index screen She was advised to continue with her daily calcium and vitamin D supplements; fall precautions reinforced as well Will continue to monitor her BMD regularly every 2 to 3 years (9) Primary osteoarthritis, right shoulder: Code(s): M19.011 - Primary osteoarthritis, right shoulder Category: Medical Plan: Her shoulder x-rays done a few months ago revealed (+) advanced OA changes Follow up with orthopedics as scheduled (10) Urinary incontinence: Code(s): R32 - Unspecified urinary incontinence Category: Medical Qualifiers: Urinary Incontinence type: unspecified incontinence Qualified Code(s): R32 - Unspecified urinary incontinence Plan: Per request, her Rx for Poise pads are again faxed over to [facility] (11) Obesity (BMI 30-39.9): Code(s): E66.9 - Obesity, unspecified Category: Medical Plan: Reinforced diet; exercise and weight loss are unrealistic given patient's age, sedentary status and multiple comorbidities Plan Follow up in 4 months Orders: Orders Influenza [id number] Immunization Today Z23 - Encounter for immunization C Reactive Protein Today 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 Vitamin B12 and Folate Today E53.8 - Deficiency of other specified B group vitamins, 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 Lipid Panel 4 Months E78.00 - Pure hypercholesterolemia, unspecified Comprehensive [place]. Panel Fast 4 Months E78.00 - Pure hypercholesterolemia, unspecified Erythrocyte Sedimentation Rate Today 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, M79.7 - Fibromyalgia Lyme IgG/IgM w/reflex to WB Today 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, W57.XXXA - Bitten or stung by nonvenomous insect and other nonvenomous arthropods, initial encounter TSH reflex Free T4 Today E78.00 - Pure hypercholesterolemia, unspecified, 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 Vitamin D 25-OH Total Today E55.9 - Vitamin D deficiency, unspecified, 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 Complete Blood Count Auto Diff 4 Months D64.9 - Anemia, unspecified Medications: New prednisone 20 mg PO DAILY 3 days 3 tabs 0RF valacyclovir 1,000 mg PO Q8H 7 days 21 tabs 0RF B02.9 - Zoster without complications Refilled incontinence pad, liner, disp (Poise Pads) As directed 90 ea 12RF R32 - Unspecified urinary incontinence
[2024-02-07 12:47] VITALS: BP 144/82; PULSE 75; O2SAT 95; BMI 31.4
[2024-02-07 13:39] VITALS: BP 136/78
== END 2024-02-07 13:47 | disposition home or self-care (01) ==
PROVIDERS: PCP Internal Medicine; Visit Provider Internal Medicine
DX: G51.0 Bell's palsy (principal); G50.0 Trigeminal neuralgia; E78.00 Pure hypercholesterolemia, unspecified; I10 Essential (primary) hypertension; J45.20 Mild intermittent asthma, uncomplicated; G30.9 Alzheimer's disease, unspecified; F02.80 Dementia in other diseases classified elsewhere, unspecified severity, without behavioral disturbance, psychotic disturbance, mood disturbance, and anxiety; J30.9 Allergic rhinitis, unspecified; M85.80 Other specified disorders of bone density and structure, unspecified site; M19.011 Primary osteoarthritis, right shoulder; R32 Unspecified urinary incontinence; E66.9 Obesity, unspecified; Z23 Encounter for immunization

== ENCOUNTER 2024-02-07 12:32 | Outpatient (REF) | payer OTHER, SELFPAY ==
[2024-02-07 15:05] LABS: C Reactive Protein 0.46 mg/dL (< or = 0.50)
[2024-02-07 15:15] LABS: Erythrocyte Sedimentation Rate 12 MM/HR (0-20)
[2024-02-07 15:23] LABS: TSH reflex Free T4 1.21 uIU/mL (0.32-4.0); Vitamin D 25-OH Total 36.2 ng/mL (>30)
[2024-02-07 15:36] LABS: Folate 12.1 ng/mL (> or = 4.0)
[2024-02-07 15:38] LABS: Vitamin B12 424 pg/mL (200-900)
[2024-02-08 17:38] LABS: Lyme Abs Screen <0.90 index
== END 2024-02-07 12:33 | disposition home or self-care (01) ==
LOC: HO.LAB 12:32
PROVIDERS: PCP Internal Medicine; Visit Provider Internal Medicine
DX: G51.0 Bell's palsy (principal); G50.0 Trigeminal neuralgia; E78.00 Pure hypercholesterolemia, unspecified; I10 Essential (primary) hypertension; J45.20 Mild intermittent asthma, uncomplicated; G30.9 Alzheimer's disease, unspecified; F02.80 Dementia in other diseases classified elsewhere, unspecified severity, without behavioral disturbance, psychotic disturbance, mood disturbance, and anxiety; J30.9 Allergic rhinitis, unspecified; M85.80 Other specified disorders of bone density and structure, unspecified site; M19.011 Primary osteoarthritis, right shoulder; R32 Unspecified urinary incontinence; E66.9 Obesity, unspecified; E53.8 Deficiency of other specified B group vitamins; M79.7 Fibromyalgia; T14.8XXA Other injury of unspecified body region, initial encounter; W57.XXXA Bitten or stung by nonvenomous insect and other nonvenomous arthropods, initial encounter; E55.9 Vitamin D deficiency, unspecified; D64.9 Anemia, unspecified; Z79.899 Other long term (current) drug therapy; Z28.21 Immunization not carried out because of patient refusal
CPT/HCPCS: 36415; 82306; 82607; 82746; 84443; 85652; 86140; 86617; 86618; 90471; 96127; 99212

== ENCOUNTER 2024-03-15 14:21 | Outpatient (AMB) | payer OTHER, SELFPAY ==
--- NOTE | 2024-03-15 14:38 | MHC.OFFWIV ---
Intake Vital Signs 03/15/24 14:40 Height 5 ft 6 in Weight 197 lb BMI 31.8 BP 130/84 Blood Pressure Location Lt brachial Position Sitting Pulse 62 Pulse Source Pulse Oximeter Pulse Oximetry (%) 98 Oxygen Delivery Method Room Air Intake Visit Reasons: EP pain on LT eye & LT side Intake Note: Patient here for left sided head,eye and ear itching tingly feeling that radiates down the face and has been present for about 3 weeks. s Patient Tobacco Use Status: Never used Tobacco Allergies aspirin Adverse Reaction (Unknown, Verified 02/07/24 13:40) stomach upset atorvastatin Adverse Reaction (Unknown, Verified 02/07/24 13:40) significantly elevated LFTs Do you need a note to return to daycare/school/sports/work: No HPI HPI Comments History of Present Illness Details Patient is an 78-year-old Syriac-speaking female who is here with her son interpreting for her. He tells me she is having left-sided facial and ear tingling and pain. She denies history of diabetes, pain on the bone behind her ear, fevers or change in hearing. Her sent also tells me that she has painful lump in her left breast. He states it started immediately after she had her mammogram, she has not done anything to try to make it better. [facility] Medical History (Updated 03/15/24 @ 15:01 by Ana Luisa Wise PA-C) Primary osteoarthritis, right shoulder Obesity (BMI 30-39.9) Alzheimer's dementia Asthma Allergic rhinitis Bilateral lower extremity edema Pure hypercholesterolemia Trigeminal neuralgia Benign essential hypertension Surgical History History of surgery History of bladder surgery History of arthroplasty of left knee History of arthroplasty of right knee History of tubal ligation History of cholecystectomy Family History Father Asthma Mother Colon cancer Sister Breast cancer Social History Housing: Apartment Alcohol intake: never Patient Tobacco Use Status: Never used Tobacco e-Cigarette/Vaping Use: Never Used Second Hand Smoke Exposure: Yes service: No Current occupational status: disabled Cognitive needs: No Hearing needs: No Vision needs: Yes Review of Systems Const All systems reviewed & are unremarkable except as noted in HPI and below Physical Exam Vital Signs: BMI result Body Mass Index 31.8 Const General: cooperative, healthy appearing, comfortable and no acute distress Orientation/consciousness: patient oriented x3 HEENT Head: Yes normal to inspection, Yes No palpable skull fracture present and Yes normocephalic Ears: hearing grossly normal bilaterally, external ears normal, TM normal on the right, EAC's normal, mastoids normal (no TTP) bilaterally, normal EAC's, no external ear abnormalities and TM abnormal (Left) wth effusion, erythematous and with loss of landmarks General nose exam: Normal external nose present Face and sinus: Yes normal facial exam Mouth: Normal oral and palatal mucosa present Teeth and gingiva: dentition normal Throat: Yes posterior oropharynx normal Eyes General: appearance normal, both eyes and all related structures Neck Neck: Yes normal visual inspection, Yes full ROM, Yes no lymphadenopathy, Yes no meningeal signs, Yes trachea midline and Yes supple Chest Breast/axilla palpation: normal palpation of the breasts (Left side) Resp Effort & Inspection: normal respiratory effort and able to speak in complete sentences Skin General skin exam: no rashes or lesions noted Neuro General: patient oriented x3 and no meningeal signs Assessment & Plan Assessment & Plan (1) Otitis media, left: Code(s): H66.92 - Otitis media, unspecified, left ear Qualifiers: Otitis media type: suppurative Chronicity: acute Recurrence: non-recurrent Spontaneous tympanic membrane rupture: without spontaneous rupture Qualified Code(s): H66.002 - Acute suppurative otitis media without spontaneous rupture of ear drum, left ear Plan: Sent amoxicillin to pharmacy (2) Breast pain, left: Code(s): N64.4 - Mastodynia Plan: I did not appreciate a lump on exam. Sent patient's primary care doctor a message requesting they follow up or order a diagnostic ultrasound for the left breast. Plan See above Medications: New amoxicillin 875 mg PO Q12H 10 tabs 0RF Coding Level of Care Code Est Pt Level 4 (45336) Diagnoses Non-recurrent acute suppurative otitis media of left ear without spontaneous rupture of tympanic membrane H66.002 Otitis media type: suppurative Chronicity: acute Recurrence: non-recurrent Spontaneous tympanic membrane rupture: without spontaneous rupture Breast pain, left N64.4
[2024-03-15 14:40] VITALS: BP 130/84; PULSE 62; O2SAT 98; BMI 31.8
== END 2024-03-15 15:05 | disposition home or self-care (01) ==
PROVIDERS: PCP Internal Medicine; Visit Provider Physician Assistant
DX: H66.002 Acute suppurative otitis media without spontaneous rupture of ear drum, left ear (principal); N64.4 Mastodynia

== ENCOUNTER → 2024-03-15 14:21 | Outpatient (BNVA) | payer OTHER, SELFPAY | PROVIDERS: PCP Internal Medicine; Visit Provider Physician Assistant | DX: H66.002 Acute suppurative otitis media without spontaneous rupture of ear drum, left ear (principal); N64.4 Mastodynia | CPT/HCPCS: 99212 ==

== ENCOUNTER 2024-03-22 11:10 | Outpatient (AMB) | payer OTHER, SELFPAY ==
[2024-03-22 11:14] VITALS: BP 132/72; PULSE 71; O2SAT 97; BMI 31.5
--- NOTE | 2024-03-22 11:14 | MHC.PC.OV ---
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 Accompanied by: Self / Same As Patient Allergies aspirin Adverse Reaction (Unknown, Verified 03/22/24 11:57) stomach upset atorvastatin Adverse Reaction (Unknown, Verified 03/22/24 11:57) significantly elevated LFTs Medication List - Last Reconciled 03/22/24 by Cisco Aleman MD albuterol sulfate 90 mcg/actuation 2 puffs inhalation Q6H PRN aspirin 81 mg PO DAILY [BACK BRACE As directed] calcium carbonate (Oyster Shell Calcium) 500 mg PO DAILY 90 days carbamazepine 200 mg PO BID 30 days cholecalciferol (vitamin D3) 25 mcg PO DAILY ezetimibe 10 mg PO DAILY 90 days fluticasone propionate 50 mcg/actuation 1 spray intranasal DAILY gabapentin 600 mg PO TID 30 days hydrochlorothiazide 25 mg PO DAILY incontinence pad, liner, disp (Poise Pads) As directed levocetirizine (Xyzal) 5 mg PO DAILY losartan 75 mg (1.5 x 50 mg) PO DAILY metoprolol tartrate 25 mg PO BID 30 days miscellaneous medical supply Back Brace miscellaneous medical supply Quad Cane nebulizers (Compact Compressor Nebulizer) As directed 3 to 4 times a day as needed omeprazole 20 mg PO DAILY 90 days oxybutynin chloride ER 10 mg PO DAILY 90 days [QUAD CANE As directed] rosuvastatin 5 mg PO DAILY 90 days valacyclovir 1,000 mg PO Q8H 7 days Tobacco use date assessed: 03/22/24 Fall risk assessment: 1 Fall in past year Last assessed Fall Risk: 03/22/24 Dental Screening Dental Screen Date: 03/22/24 Did you have a dental visit in the last 12 months?: No Did you have a dental problem in the last 6 months where you did not have access to dental care?: No Was dental information given to patient?: Yes HPI left breast discomfort HPI Details Patient comes in today for evaluation of pain in her left breast, which she states has been present since she had her last mammogram done almost 2 months ago on 02/02/2024 She points to the lower outer quadrant area of the left breast as the location of her pain States that she has not noticed any lumps, mass or cysts over the area It was initially thought that the pain was mostly because of the mammogram that she had done recently but the pain persisted even weeks after her procedure, which prompted her to call in for an appointment for further evaluation Patient adds that she just finished her Abx that was prescribed at the walk-in clinic last week for her left ear infection States that her ear symptoms have eased up somewhat with Abx Tx but she still has recurrent discomfort and a sensation of fullness/pressure in her left ear; denies any ear pain Patient adds that her left eye still feels irritated and red - states that this has been going on for about a week now and she is concerned about possible eye infection She denies any increased blurring of vision lately She denies any fever or chills; denies any sore throat Denies any chest pain, no shortness of breath No nausea/vomiting, no abdominal pain No change in bowel habits noted [facility] Medical History Primary osteoarthritis, right shoulder Obesity (BMI 30-39.9) Alzheimer's dementia Asthma Allergic rhinitis Bilateral lower extremity edema Pure hypercholesterolemia Trigeminal neuralgia Benign essential hypertension Surgical History History of surgery History of bladder surgery History of arthroplasty of left knee History of arthroplasty of right knee History of tubal ligation History of cholecystectomy Family History Father Asthma Mother Colon cancer Sister Breast cancer Social History Housing: Apartment Alcohol intake: never Patient Tobacco Use Status: Never used Tobacco e-Cigarette/Vaping Use: Never Used Second Hand Smoke Exposure: Yes service: No Current occupational status: disabled Cognitive needs: No Hearing needs: No Vision needs: Yes Questionnaire PHQ-9 Over the last 2 weeks, how often have you been bothered by any of the following problems? 1. Little interest or pleasure in doing things: several days 2. Feeling down, depressed, or hopeless: several days 3. Trouble falling or staying asleep, or sleeping too much: not at all 4. Feeling tired or having little energy: not at all 5. Poor appetite or overeating: not at all 6. Feeling bad about yourself - or that you are a failure or have let yourself or your family down: not at all 7. Trouble concentrating on things, such as reading the newspaper or watching television: not at all 8. Moving or speaking so slowly that other people could have noticed. Or the opposite - being so fidgety or restless that you have been moving around a lot more than usual: not at all 9. Thoughts that you would be better off or of hurting yourself in some way: not at all Total score: 2 Depression Screening Interpretation: Negative Depression Screening Done: Yes 48977 - PHQ-9 Billing: Yes Source: Developed by Drs. Terence Ring, Maci Colunga, Abraham Infante and colleagues, with an educational vernon from [employer] Thrive Questionnaire Date Thrive assessed: 03/22/24 I am a: Patient What is your living situation today?: I have a steady place to live Within the past 12 months, did the food you bought not last and you didn't have the money to get more?: Never true Within the past 12 months, did you worry whether your food would run out before you got money to buy more?: Never true Do you have trouble paying for medicines?: No Do you have trouble getting transportation to medical appointments?: No Do you have trouble paying your heating and electricity bill?: No Do you have trouble taking care of your child, family member or friend?: No Do you have trouble with day-to-day activities such as bathing, preparing meals, shopping, managing finances, etc.?: No Are you currently unemployed and looking for a job?: No Are you interested in more education?: No Please select the resources that you would like help with: None Currently or been in a relationship where the following occur: No concerns reported THRIVE Score: 0 AUDIT C Alcohol Use Questionnaire (AUDIT-C) 1. How often do you have a drink containing alcohol?: Never 3. How often do you have six or more drinks on one occasion?: Never Total Score: 0 Score Reviewed/Action Taken: Yes SUSHIL-7 AMB Questionnaire SUSHIL-7 Date SUSHIL - 7 assessed: 03/22/24 Feeling nervous, anxious, or on edge: 0 = Not at all Not being able to stop or control worryin = Not at all Worrying too much about different things: 0 = Not at all Trouble relaxin = Not at all Being so restless that it is hard to sit still: 0 = Not at all Becoming easily annoyed or irritable: 0 = Not at all Feeling afraid as if something awful might happen: 0 = Not at all Total SUSHIL-7 score (0-4 normal; 5-9 mild; 10-14 moderate; 15-21 severe): 0 Source: Developed by Drs. Terence Ring, Maci Colunga, Abraham Infante and colleagues, with an educational vernon from [employer] Review of Systems Const Reports fatigue, Denies fever(s) and Denies headache(s) (better controlled lately) Eyes Details: left eye feels swollen at times lately Reports irritation (left eye) ENT Details: left side of the face feels numb Denies dysphagia, Denies otalgia (but still has sensation of pressure/fullness/discomfort in the L ear), Denies headache(s) (better controlled lately), Denies neck pain, Denies odynophagia and Denies sore throat Card Denies chest pain, Denies palpitations and Denies dyspnea Resp Denies cough, Denies dyspnea and Denies wheezing GI Denies abdominal pain, Denies constipation, Denies dysphagia, Denies diarrhea, Denies nausea, Denies odynophagia and Denies vomiting Musc Denies back pain and Denies neck pain Skin/Breast Reports breast pain (L breast - see HPI) and Denies rash Neuro Denies headache(s) (better controlled lately) and Reports memory loss (stable) Psych Reports memory loss (stable) Endo Reports fatigue and Denies palpitations Aller/Immun Denies wheezing Physical exam (Primary Care) Vital Signs: Last Vital Signs Pulse 71 03/22/24 11:14 BP 132/72 03/22/24 11:14 Pulse Ox 97 03/22/24 11:14 Oxygen Delivery Method Room Air 03/22/24 11:14 BMI result Body Mass Index 31.5 Tobacco/Smoking Status: Tobacco use Status Tobacco use date assessed 03/22/24 03/22/24 11:23 Patient Tobacco Use Status Never used Tobacco 03/22/24 11:23 e-Cigarette/Vaping Use Never Used 03/22/24 11:23 PHQ-9: PHQ-9 Score PHQ-9: Total score 2 03/22/24 11:58 Depression Screening Interpretation: Negative Thrive Assessment: Date of Thrive Assessment Date Thrive assessed 03/22/24 03/22/24 11:23 Currently or been in a relationship where the following occur: No concerns reported Const General: no acute distress and alert HENMT Ears: TM normal on the right, EAC's normal and TM abnormal with fluid behind the TM on the left Throat: Yes posterior oropharynx normal and Yes tonsils normal (no TP congestion noted) Eyes Conjunctivae: conjunctival abnormal left conjunctival injection (mild) localized; without discharge Corneas: corneas abnormal (mild erythema) on the left Neck Neck: Yes no lymphadenopathy and Yes supple Thyroid: Thyroid normal Chest Breast/axilla inspection: abnormal inspection of the breast Breast/axilla palpation: abnormal palpation of the breast ((+) tenderness ) left lower outer tenderness; Negative for mass Resp Auscultation: clear to auscultation bilaterally, no rales and no wheezes Cardio Rate: regular rate Rhythm: regular rhythm Heart sounds: no murmurs GI Palpation (GI): Soft to palpation and nontender Auscultation: normal bowel sounds Extrem General: Yes no clubbing, cyanosis or edema Coding Level of Care Code Est Pt Level 4 (63144) Diagnoses Breast pain, left N64.4 Non-recurrent acute suppurative otitis media of left ear without spontaneous rupture of tympanic membrane H66.002 Otitis media type: suppurative Chronicity: acute Recurrence: non-recurrent Spontaneous tympanic membrane rupture: without spontaneous rupture Corneal irritation of left eye H18.892 Additional Codes PHQ-9 - 13182 - PHQ-9 Billing: Yes ([id number]) Assessment & Plan Assessment & Plan (1) Breast pain, left: Code(s): N64.4 - Mastodynia Category: Medical Plan: Patient just had a negative mammogram done a couple of months ago on 02/02/2024 Worsen her for an ultrasound of the left breast for further evaluation (2) Otitis media, left: Code(s): H66.92 - Otitis media, unspecified, left ear Category: Medical Qualifiers: Otitis media type: suppurative Chronicity: acute Recurrence: non-recurrent Spontaneous tympanic membrane rupture: without spontaneous rupture Qualified Code(s): H66.002 - Acute suppurative otitis media without spontaneous rupture of ear drum, left ear Plan: S/P Amoxicillin 875 mg BID but was only prescribed for 5 days, which for otitis, is often not adequate Will go ahead and restart her on Amoxicillin 875 mg BID but will have her stay on her Abx for at least 10 days, which is usually the recommended length of time for antibiotic treatments for acute otitis (3) Corneal irritation of left eye: Code(s): H18.892 - Other specified disorders of cornea, left eye Category: Medical Plan: She appears to have some erythema of her left cornea/conjunctiva on exam today - this may likely be related to or due to 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 Will go ahead and start on Polytrim eyedrops up to 4 times a day for 7 days Have advised the patient's son that if left eye symptoms do not improve with the antibiotic eyedrops, then he should consider taking her to see 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
== END 2024-03-22 12:07 | disposition home or self-care (01) ==
PROVIDERS: PCP Internal Medicine; Visit Provider Internal Medicine
DX: N64.4 Mastodynia (principal); H66.002 Acute suppurative otitis media without spontaneous rupture of ear drum, left ear; H18.892 Other specified disorders of cornea, left eye

== ENCOUNTER → 2024-03-22 11:10 | Outpatient (BNVA) | payer OTHER, SELFPAY | PROVIDERS: PCP Internal Medicine; Visit Provider Internal Medicine | DX: N64.4 Mastodynia (principal); H66.002 Acute suppurative otitis media without spontaneous rupture of ear drum, left ear; H18.892 Other specified disorders of cornea, left eye | CPT/HCPCS: 96127; 99212 ==

== ENCOUNTER 2024-04-10 08:47 | Outpatient (REF) | payer OTHER, SELFPAY ==
--- NOTE | ~2024-04-10 | US_ITS ---
EXAMINATION: US DIAGNOSTIC ULTRASOUND BREAST, LEFT CLINICAL INFORMATION: Left lower outer breast pain for one month. Recent normal mammogram.. COMPARISON: Comparison is made with relevant prior imaging. TECHNIQUE: Ultrasound of the breast is performed with real-time fagan scale imaging and color Doppler. FINDINGS: Targeted color Doppler ultrasound scanning in the lower outer quadrant of the left breast and from 12 -6:00 demonstrates normal fibroglandular breast tissue. There is no sonographic abnormality. Results are discussed with the patient at time of visit. US/US breast LT limited IMPRESSION: No sonographic abnormality to account for the patient's left breast pain. Recommend clinical evaluation and follow-up. ASSESSMENT: BI-RADS 1: Negative RECOMMENDATION: Routine annual mammography screening. This patient's information was entered into a reminder system with a target due date for their next mammogram. Electronically signed by: Sandra Leger DO 04/10/2024 09:25 AM NANCIE
== END 2024-04-10 08:48 | disposition home or self-care (01) ==
LOC: HO.MAMMO 08:47
PROVIDERS: PCP Internal Medicine; Visit Provider Internal Medicine
DX: N64.4 Mastodynia (principal)
CPT/HCPCS: 76642

== ENCOUNTER → 2024-04-10 09:00 | Outpatient (BNV) | payer OTHER, SELFPAY | PROVIDERS: PCP Internal Medicine; Visit Provider Internal Medicine | DX: N64.4 Mastodynia (principal) | CPT/HCPCS: 76642 ==

== ENCOUNTER 2024-06-25 11:51 | Emergency (ER) | payer OTHER, SELFPAY ==
--- NOTE | ~2024-06-25 | XR_ITS ---
CLINICAL HISTORY: CP, cough 2 view chest x-ray Comparison: CR/SR - CHEST 1 VIEW - 02/07/19 18:58 EDT Findings: No consolidation or effusion. Heart size is normal. No acute fracture. IMPRESSION: 1. No acute findings. This document has been electronically signed by: Kandice Allen MD on 06/25/2024 13:13:01
[2024-06-25 12:22] VITALS: PULSE 88; RESP 19; TEMP 36.6; O2SAT 98; BMI 29.2
--- NOTE | 2024-06-25 12:23 | ED_ITS ---
HPI - URI/Sore Throat General Chief Complaint: Chest Pain Stated Complaint: Cough w/ Chest Pain Since Last Night Time Seen by Provider: 06/25/24 15:12 Source: patient, family (Daughter) and language interpreter Mode of arrival: ambulatory Limitations: no limitations History of Present Illness ED Provider: DR. Navarro HPI Narrative: 79-year-old female came in with her daughter for evaluation of persistent nonproductive cough, left facial pain, and chest pain with coughing x2 days. Nonproductive cough for the past 2 days causing chest pain and back pain when coughing, patient is also complaining of left facial pain, no nasal congestion, no nasal discharge, no fever, no chills, no sick contacts, no recent travel, no lower extremity swelling or tenderness, no history of prolonged immobilization. Related Data Home Medications ?Medication ?Instructions ?Recorded ?Confirmed miscellaneous medical supply ea miscellaneous 10/27/21 03/22/24 [facility] 03[facility]22[facility]24 Previous Rx's ?Medication ?Instructions ?Recorded BACK BRACE #1 ea 11/13/21 QUAD CANE #1 ea 11/13/21 albuterol sulfate 90 mcg/actuation 2 puff inhalation Q6H PRN 11/16/22 aerosol inhaler shortness of breath or wheezing #8.5 grams nebulizers (Compact Compressor #1 ea 10/06/23 Nebulizer) levocetirizine 5 mg tablet (Xyzal) 5 mg PO DAILY #90 tabs 12/15/23 valacyclovir 1 gram tablet 1,000 mg PO Q8H 7 days #21 tabs 02/07/24 incontinence pad, liner, disp #90 ea 02/28/24 (Poise Pads) carbamazepine 200 mg tablet 200 mg PO BID 30 days #60 tabs 03/14/24 gabapentin 600 mg tablet 600 mg PO TID 30 days #90 tabs 03/14/24 hydrochlorothiazide 25 mg tablet 25 mg PO DAILY #28 tabs 03/14/24 losartan 50 mg tablet 75 mg (1.5 x 50 mg) PO DAILY #42 03/14/24 tabs metoprolol tartrate 25 mg tablet 25 mg PO BID 30 days #60 tabs 03/14/24 amoxicillin 875 mg tablet 875 mg PO BID 7 days #14 tabs 03/22/24 polymyxin B sulfate 10,000 1 drp ophthalmic (eye) QID 7 days 03/22/24 unit-trimethoprim 1 mg/mL eye drops #10 mL calcium carbonate (Oyster Shell 500 mg PO DAILY 90 days #90 tabs 04/11/24 Calcium) cholecalciferol (vitamin D3) 25 25 mcg PO DAILY #90 tabs 04/11/24 mcg (1,000 unit) tablet ezetimibe 10 mg tablet 10 mg PO DAILY 90 days #90 tabs 04/11/24 omeprazole 20 mg capsule,delayed 20 mg PO DAILY 90 days #90 caps 04/11/24 release oxybutynin chloride 10 mg 10 mg PO DAILY 90 days #90 tabs 04/11/24 tablet,extended release 24 hr rosuvastatin 5 mg tablet 5 mg PO DAILY 90 days #90 tabs 04/11/24 aspirin 81 mg tablet,delayed 81 mg PO DAILY #28 tabs 05/07/24 release fluticasone propionate 50 1 spray intranasal DAILY #15.8 mL 06/12/24 mcg/actuation nasal spray,suspension amoxicillin 875 mg-potassium 1 tab PO BID #14 tabs 06/25/24 clavulanate 125 mg tablet guaifenesin 200 mg/5 mL oral liquid 200 mg (5 mL) PO Q4H PRN cough 06/25/24 #118 mL prednisone 20 mg tablet 20 mg PO BID #10 tabs 06/25/24 Allergies Allergy/AdvReac Type Severity Reaction Status Date / Time aspirin AdvReac Unknown stomach Verified 06/25/24 12:24 upset atorvastatin AdvReac Unknown significantly Verified 06/25/24 12:24 elevated LFTs Review of Systems 2 Review of Systems: All other systems are reviewed and are negative Constitutional: Reports as per HPI and Reports no additional constitutional complaints Eyes: Reports as per HPI and Reports no additional eye complaints Reports system reviewed and no additional complaints, except as documented Cardiovascular: Reports as per HPI and Reports no additional cardiovascular complaints Respiratory: Reports as per HPI and Reports no additional respiratory complaints Gastrointestinal: Reports as per HPI and Reports no additional gastrointestinal complaints Genitourinary: Reports no additional female genitourinary complaints Musculoskeletal: Reports no additional musculoskeletal complaints Skin/Breast: Reports system reviewed and no additional complaints, except as docu Psychiatric: Reports no additional psychiatric complaints Endocrine: Reports no additional endocrine complaints Hematologic/Lymphatic: Reports no additional hematologic/lymphatic complaints Allergic/Immunologic: Reports no additional allergic/immunologic complaints Reports system reviewed and no additional complaints, except as documented and Reports Abnormal speech present [facility] Past Medical History Medical History Primary osteoarthritis, right shoulder Obesity (BMI 30-39.9) Alzheimer's dementia Asthma Allergic rhinitis Bilateral lower extremity edema Pure hypercholesterolemia Trigeminal neuralgia Benign essential hypertension Surgical History History of surgery History of bladder surgery History of arthroplasty of left knee History of arthroplasty of right knee History of tubal ligation History of cholecystectomy Family History Family History Father Asthma Mother Colon cancer Sister Breast cancer Social History Social History Housing: Apartment Alcohol intake: never Patient Tobacco Use Status: Never used Tobacco e-Cigarette/Vaping Use: Never Used Second Hand Smoke Exposure: Yes Advance Directives: No Advance Directives Information Provided: No Do you have a plan to hurt others: No Plan service: No Current occupational status: disabled Cognitive needs: No Hearing needs: No Vision needs: Yes Physical Exam 2 Vital Signs: Vital Signs: Last Vital Signs Temp 98 F 06/25/24 12:22 Pulse 88 06/25/24 12:22 Resp 19 06/25/24 12:22 Pulse Ox 98 06/25/24 12:22 O2 Del Method Room Air 06/25/24 12:22 BMI result Body Mass Index 29.2 Vital signs have been reviewed and appear to be correct. Blood pressure elevated. Heart rate normal. Respiratory rate normal. Temperature normal. Oxygen saturation normal. Appearance: Alert. Oriented X3. No acute distress. Head: Normal external exam. Normocephalic. Atraumatic. No Mcclelland signs noted. No raccoon eyes noted Eyes: PERRLA. EOMI. Conjunctiva and sclera normal. Eyelids normal. ENT: TM's Normal. Pharynx normal. Uvula midline. Moist mucous membranes. No trismus noted. Left frontal/left maxillary sinus tenderness on percussion, + nasal congestion. Neck: Normal inspection. Neck supple. FROM. No adenopathy. Thyroid Normal. No meningeal signs. No neck mass noted. CVS: Normal heart rate and rhythm. Heart sound normal. No murmurs noted. Pulses normal throughout. Respiratory: No respiratory distress. Painless inspiration. Breath sounds normal. No wheezes/rales/rhonchi noted. Chest nontender. No accessory muscle usage noted or decreased air movement noted. Abdomen: Soft and nontender. Bowel sounds normal in all 4 quadrants. No distention noted. No organomegaly noted. No visible injury noted. Back: No CVA tenderness. Full range of motion noted. Skin: Skin warm and dry. Normal skin color. Normal skin turgor. No rashes/lesions/lacerations noted. Extremities: No lower extremity edema. Extremities exhibit normal range of motion. Extremities nontender. Neuro: Oriented X 3. Cranial nerve exam: II-XII are grossly intact No motor deficit. No sensory deficit. Reflexes normal. Course Course Course Narrative: This is an RME: Additional HPI, ROS, PE not included below will be deferred to primary provider. RME assessment and note performed by: Michelle Helton PA-C This is a [id number]-female who presents to the ER with complaints of cough, congestion and chest pain. Reports that the chest pain worsens with coughing. Plan: Labs, EKG, CXR, further ER eval needed. Reevaluation(s) Reevaluation #1: Upper respiratory symptoms causing chest pain secondary to coughing, exam is also revealing left frontal/left maxillary sinusitis, negative cardiac enzymes. Chest pain secondary to chest wall contusion after coughing. Will start the patient on Augmentin for sinusitis, short course of prednisone, coughing medication, and bronchodilator. Time: 16:00 Medical Decision Making Differential Diagnosis Differential Diagnoses: The differential diagnosis associated with the presentation includes (Pneumonia, pneumothorax, pleural effusion, chest wall contusion, bronchitis, viral upper respiratory infection, ACS, CHF, electrolyte derangement, severe anemia.) Admission/Observation Consideration of admission/observation: Escalation of care including admission/observation considered Lab Data [facility] Lab Attestation statement: I reviewed the patient's lab results. 06/25/24 13:26 06/25/24 13:26 Labs: Lab Results 06/25/24 Range/Units 13:26 WBC 10.5 (4.8-10.8) X10*3/uL RBC 4.51 (4.20-5.50) X10*6/uL Hgb 12.8 (12.0-16.0) g/dl Hct 39.5 (37.0-47.0) % MCV 87.6 (80.0-98.0) fL MCH 28.4 (27.0-33.0) pg MCHC 32.4 (31.0-35.0) g/dl RDW 14.2 (11.0-16.0) % Plt Count 168 (160-400) X10*3/uL MPV 11.6 (9.4-12.3) fL Immature Gran % (Auto) 0.5 H (0.0-0.4) % Neut % (Auto) 73.8 H (45-73) % Lymph % (Auto) 18.4 L (20-40) % [place] % (Auto) 5.1 (2-11) % Eos % (Auto) 1.6 (0-4) % Baso % (Auto) 0.6 (0-2) % Lymph # (Auto) 1.9 (1.2-4.9) X10*3/uL [place] # (Auto) 0.5 (0.1-1.2) X10*3/uL Eos # (Auto) 0.2 (0.0-0.4) X10*3/uL Baso # (Auto) 0.1 (0.0-0.2) X10*3/uL Abs Immat Gran (auto) 0.05 H (0.00-0.03) X10*3/uL Absolute Neuts (auto) 7.7 (2.0-8.3) x10*3/uL Absolute Nucleated RBC 0.000 (0.0-0.012) X10*3/uL Nucleated RBC % (auto) 0.0 (0.0-0.2) /100WBC Sodium 139 (135-145) mmol/L Potassium 4.2 (3.3-5.1) mmol/L Chloride 103 (96-108) mmol/L Carbon Dioxide 28 (22-29) mmol/L Anion Gap 12 (12-20) BUN 13 (9-16) mg/dL Creatinine 0.81 (0.5-1.4) mg/dL Estim Creat Clear Calc 58.8 Estimated GFR > 60 Random Glucose 109 (60-115) mg/dL Calcium 9.7 (8.4-10.2) mg/dL Magnesium 1.9 (1.6-2.6) mg/dL Total Bilirubin 0.7 (0.0-1.0) mg/dL Direct Bilirubin 0.3 (0.0-0.5) mg/dL AST 42 H (5-31) U/L ALT 37 H (0-31) U/L Alkaline Phosphatase 167 H (39-117) U/L Troponin I High Sens 7.9 D (<3.5-17.0) ng/L B-Natriuretic Peptide 26 (<100) pg/mL Total Protein 7.6 (6.5-8.0) g/dL Albumin 4.0 (3.5-5.0) g/dL Influenza Type A (PCR) NEGATIVE (Negative) Influenza Type B (PCR) NEGATIVE (Negative) RSV RNA Qual (PCR) NEGATIVE (Negative) SARS-CoV-2 RNA (RT-PCR) NEGATIVE (Negative) Independent Interpretation I performed an independent interpretation of an: EKG (Normal sinus rhythm at 89 beats per minutes, no ST-T changes, normal intervals, no significant change from previous EKG.) and Plain X-Ray (Chest: No acute findings.) Radiology Impression Discussion of test interpretation with radiology: I have reviewed the radiologist's reading. Discharge Plan Discharge Clinical Impression: Acute sinusitis, Chest wall pain Patient Disposition: Home, Self-Care Instructions: Sinusitis (ED), Chest Wall Pain (ED) Prescriptions: New amoxicillin-pot clavulanate 875-125 mg tablet 1 tab PO BID Qty: 14 0RF prednisone 20 mg tablet 20 mg PO BID Qty: 10 0RF guaifenesin 200 mg/5 mL liquid 200 mg PO Q4H PRN (Reason: cough) Qty: 118 0RF No Action miscellaneous medical supply Misc miscellaneous Rx Instructions: Quad Cane miscellaneous medical supply Misc miscellaneous Rx Instructions: Back Brace (DME) BACK BRACE See Rx Instructions .Route .MEDSUPPLY Qty: 1 0RF Rx Instructions: As directed (DME) QUAD CANE See Rx Instructions .Route .MEDSUPPLY Qty: 1 0RF Rx Instructions: As directed albuterol sulfate 90 mcg/actuation HFA aerosol inhaler 2 puff inhalation Q6H PRN (Reason: shortness of breath or wheezing) Qty: 8.5 1RF (DME) Poise Pads Pad See Rx Instructions .Route Qty: 90 12RF Rx Instructions: As directed gabapentin 600 mg tablet 600 mg PO TID 30 Days Qty: 90 2RF carbamazepine 200 mg tablet 200 mg PO BID 30 Days Qty: 60 2RF losartan 50 mg tablet 75 mg PO DAILY Qty: 42 2RF hydrochlorothiazide 25 mg tablet 25 mg PO DAILY Qty: 28 2RF metoprolol tartrate 25 mg tablet 25 mg PO BID 30 Days Qty: 60 2RF calcium carbonate [Oyster Shell Calcium] 500 mg calcium (1,250 mg) tablet 500 mg PO DAILY 90 Days Qty: 90 0RF ezetimibe 10 mg tablet 10 mg PO DAILY 90 Days Qty: 90 0RF omeprazole 20 mg capsule,delayed release(DR/EC) 20 mg PO DAILY 90 Days Qty: 90 0RF oxybutynin chloride 10 mg tablet extended release 24hr 10 mg PO DAILY 90 Days Qty: 90 0RF cholecalciferol (vitamin D3) 25 mcg (1,000 unit) tablet 25 mcg PO DAILY Qty: 90 0RF rosuvastatin 5 mg tablet 5 mg PO DAILY 90 Days Qty: 90 0RF aspirin 81 mg tablet,delayed release (DR/EC) 81 mg PO DAILY Qty: 28 0RF fluticasone propionate 50 mcg/actuation spray,suspension 1 spray intranasal DAILY Qty: 15.8 0RF Rx Instructions: administer into each nostril (DME) nebulizers [Compact Compressor Nebulizer] Misc See Rx Instructions .Route Qty: 1 0RF Rx Instructions: As directed 3 to 4 times a day as needed levocetirizine [Xyzal] 5 mg tablet 5 mg PO DAILY Qty: 90 3RF valacyclovir 1 gram tablet 1,000 mg PO Q8H 7 Days Qty: 21 0RF Fluarix Triv [id number] (PF) 45 mcg (15 mcg x 3)/0.5 mL syringe 0.5 ml IM ONCE Qty: 0.5 0RF amoxicillin 875 mg tablet 875 mg PO BID 7 Days Qty: 14 0RF polymyxin B sulf-trimethoprim 10,000 unit- 1 mg/mL drops 1 drp ophthalmic (eye) QID 7 Days Qty: 10 0RF Referrals: Cisco Aleman MD [Primary Care Provider] - Print Language: Tajik
--- NOTE | 2024-06-25 12:24 | ECG_ITS ---
Test Reason : CP Blood Pressure : */* mmHG Vent. Rate : 89 BPM Atrial Rate : 89 BPM P-R Int : 156 ms QRS Dur : 72 ms QT Int : 356 ms P-R-T Axes : 50 -4 17 degrees QTcB Int : 433 ms Normal sinus rhythm Normal ECG When compared with ECG of 05-Jan-2023 11:42, No significant changes seen Referred By: Michelle Helton Electronically Signed By: IGOR ALVAREZ
[2024-06-25 13:39] LABS: MANUAL DIFF FLAG NO
[2024-06-25 13:41] LABS: Basophils Absolute Auto 0.1 X10*3/uL (0.0-0.2); Basophils Percent Auto 0.6 % (0-2); Eosinophils Absolute Auto 0.2 X10*3/uL (0.0-0.4); Eosinophils Percent Auto 1.6 % (0-4); Hematocrit 39.5 % (37.0-47.0); Hemoglobin 12.8 g/dl (12.0-16.0); Imm Gran Abs Auto 0.05 X10*3/uL (0.00-0.03); Imm Gran Pct Auto 0.5 % (0.0-0.4); Lymphocytes Absolute Auto 1.9 X10*3/uL (1.2-4.9); Lymphocytes Percent Auto 18.4 % (20-40); Mean Corpuscular HGB Conc 32.4 g/dl (31.0-35.0); Mean Corpuscular Hemoglobin 28.4 pg (27.0-33.0); Mean Corpuscular Volume 87.6 fL (80.0-98.0); Mean Platelet Volume 11.6 fL (9.4-12.3); Monocytes Absolute Auto 0.5 X10*3/uL (0.1-1.2); Monocytes Percent Auto 5.1 % (2-11); Neutrophils Absolute Auto 7.7 x10*3/uL (2.0-8.3); Neutrophils Percent Auto 73.8 % (45-73); Platelet Count 168 X10*3/uL (160-400); Red Blood Count 4.51 X10*6/uL (4.20-5.50); Red Cell Distribution Width 14.2 % (11.0-16.0); White Blood Count 10.5 X10*3/uL (4.8-10.8)
[2024-06-25 13:57] LABS: Alanine Aminotransferase 37 U/L (0-31); Alkaline Phosphatase 167 U/L (39-117); Anion Gap 12 (12-20); Aspartate Amino Transferase 42 U/L (5-31); Bilirubin Direct 0.3 mg/dL (0.0-0.5); Bilirubin Total 0.7 mg/dL (0.0-1.0); Blood Urea Nitrogen 13 mg/dL (9-16); Calcium 9.7 mg/dL (8.4-10.2); Carbon Dioxide 28 mmol/L (22-29); Chloride 103 mmol/L (96-108); Creatinine Clr Calc Pharmacy 58.8; Estimated Glomerular Filt Rate > 60; Glucose Random 109 mg/dL (60-115); Magnesium 1.9 mg/dL (1.6-2.6); Potassium 4.2 mmol/L (3.3-5.1); Sodium 139 mmol/L (135-145); Total Protein 7.6 g/dL (6.5-8.0)
[2024-06-25 14:03] LABS: B Type Natriuretic Peptide 26 pg/mL (<100)
[2024-06-25 14:04] LABS: Troponin-I High Sensitivity 7.9 ng/L (<3.5-17.0)
[2024-06-25 14:17] LABS: Influenza A PCR NEGATIVE (Negative); Influenza B PCR NEGATIVE (Negative); Resp Syncy Virus RNA Qual PCR NEGATIVE (Negative); SARS COV2 PCR INHOUSE NEGATIVE (Negative)
[2024-06-25 15:26] VITALS: BP 152/56; PULSE 86; RESP 22; O2SAT 96
--- NOTE | 2024-06-25 15:30 | PC.NURSE ---
Pt comes to ED today for c/o chest pain with cough and pheglm. A&OX3, VSS Skin is warm and dry Breaths and speech are unlabored. Dr. Navarro at bedside for eval. Awaiting new orders.
[2024-06-25] MEDS: Albuterol Sulfate 90 MCG 8 GM INHALER 2 PUFF INHALE (15:39)
[2024-06-25] MEDS: predniSONE 20 MG TABLET 40 MG PO (15:43)
[2024-06-25] MEDS: Amoxicillin/Potassium Clav 875 MG TABLET PO (15:43)
[2024-06-25 15:44] VITALS: PULSE 85; RESP 19; O2SAT 95
--- NOTE | 2024-06-25 15:44 | PC.NURSE ---
RT at bedside for inhaler education and administration.
[2024-06-25] MEDS: guaiFEN/Codeine SF 200/20/10ML 10 ML LIQUID PO (15:52)
[2024-06-25 15:56] VITALS: BP 152/56; PULSE 89; RESP 17; TEMP 36.8; O2SAT 96
== END 2024-06-25 16:06 | disposition home or self-care (01) ==
PROVIDERS: Physician Assistant Medical; Emergency Provider Emergency Medicine; PCP Internal Medicine
DX: J01.90 Acute sinusitis, unspecified (principal); R07.89 Other chest pain; R05.9 Cough, unspecified; M54.50 Low back pain, unspecified; R51.9 Headache, unspecified; R06.02 Shortness of breath; Z79.899 Other long term (current) drug therapy; Z03.818 Encounter for observation for suspected exposure to other biological agents ruled out
CPT/HCPCS: 0241U; 71046; 80048; 80076; 83735; 83880; 84484; 85025; 93005; 94640; 99284; 99285

== ENCOUNTER → 2024-06-25 12:24 | Outpatient (BNV) | payer OTHER, SELFPAY | PROVIDERS: PCP Internal Medicine; Visit Provider Radiology Diagnostic Radiology | DX: R07.9 Chest pain, unspecified (principal); R05.9 Cough, unspecified | CPT/HCPCS: 71046 ==

== ENCOUNTER → 2024-06-25 12:24 | Outpatient (BNV) | payer OTHER, SELFPAY | PROVIDERS: Emergency Provider Emergency Medicine; PCP Internal Medicine; Visit Provider Internal Medicine | DX: R07.9 Chest pain, unspecified (principal) | CPT/HCPCS: 93010 ==

== ENCOUNTER 2024-07-09 13:04 | Outpatient (AMB) | payer OTHER, SELFPAY ==
[2024-07-09 13:08] VITALS: BP 138/72; PULSE 88; O2SAT 96; BMI 29.0
--- NOTE | 2024-07-09 13:08 | A.OFFVIS_ITS ---
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 Aleman for facial palsy; Alzheimer's dementia Destination Sign Repairer Required: Yes Destination Sign Repairer Name: anson lawrence Information Interpreted: non-clinical & clinical Allergies aspirin Adverse Reaction (Unknown, Verified 07/09/24 13:30) stomach upset atorvastatin Adverse Reaction (Unknown, Verified 07/09/24 13:30) significantly elevated LFTs Medication List - Last Reconciled 07/09/24 by Sherri Salinas MD albuterol sulfate 90 mcg/actuation 2 puffs inhalation Q6H PRN amoxicillin 875 mg PO BID 7 days amoxicillin-pot clavulanate 875-125 mg 1 tab PO BID aspirin 81 mg PO DAILY [BACK BRACE As directed] calcium carbonate (Oyster Shell Calcium) 500 mg PO DAILY 90 days carbamazepine 200 mg PO BID 30 days cholecalciferol (vitamin D3) 25 mcg PO DAILY ezetimibe 10 mg PO DAILY 90 days fluticasone propionate 50 mcg/actuation 1 spray intranasal DAILY gabapentin 600 mg PO TID 30 days guaifenesin 200 mg (5 mL) PO Q4H PRN hydrochlorothiazide 25 mg PO DAILY incontinence pad, liner, disp (Poise Pads) As directed levocetirizine (Xyzal) 5 mg PO DAILY losartan 75 mg (1.5 x 50 mg) PO DAILY metoprolol tartrate 25 mg PO BID 30 days miscellaneous medical supply Back Brace miscellaneous medical supply Quad Cane nebulizers (Compact Compressor Nebulizer) As directed 3 to 4 times a day as needed omeprazole 20 mg PO DAILY 90 days oxybutynin chloride ER 10 mg PO DAILY 90 days polymyxin B sulf-trimethoprim 10,000 unit- 1 mg/mL 1 drp ophthalmic (eye) QID 7 days prednisone 20 mg PO BID [QUAD CANE As directed] rosuvastatin 5 mg PO DAILY 90 days valacyclovir 1,000 mg PO Q8H 7 days HPI Comments Details: 79y/o female is referred here for evaluation of multiple neurological issues- left trigemial neuralgia, memory issues etc. She has h/o left trigeminal neuralgia( V1 ) - she had PrGR( percutaneous retrogasserian Glycerol Rhizotomy) surgery in 2019 - was pain free for 1 year. she saw in 2020 when her pain recurred and also reports numbness in the whole left face. The pain intensity has decreased significantly but has residual numbness, tightness around her left eye and tingling,.The discomfort and numbness are persistent.No electric shock like pain chewing eating cold air etc does not increase the pain. she also reports involuntary spasm of the left side of the face. Cognition- she also reports problems remembering names, places, shot term memory recall etc.she genao sword finding difficulty.she lives with her son and is independent in all her ADLs. [facility] Medical History (Updated 07/09/24 @ 14:32 by Sherri Salinas MD) Cognitive disorder Trigeminal neuralgia of left side of face Numbness and tingling of left side of face Primary osteoarthritis, right shoulder Obesity (BMI 30-39.9) Alzheimer's dementia Asthma Allergic rhinitis Bilateral lower extremity edema Pure hypercholesterolemia Trigeminal neuralgia Benign essential hypertension Surgical History History of surgery History of bladder surgery History of arthroplasty of left knee History of arthroplasty of right knee History of tubal ligation History of cholecystectomy Family History Father Asthma Mother Colon cancer Sister Breast cancer Social History Housing: Apartment Alcohol intake: never Patient Tobacco Use Status: Never used Tobacco e-Cigarette/Vaping Use: Never Used Second Hand Smoke Exposure: Yes service: No Current occupational status: disabled Cognitive needs: No Hearing needs: No Vision needs: Yes Physical Exam Vital Signs: Last Vital Signs Pulse 88 07/09/24 13:08 BP 138/72 07/09/24 13:08 Pulse Ox 96 07/09/24 13:08 Oxygen Delivery Method Room Air 07/09/24 13:08 BMI result Body Mass Index 29.0 Const General: cooperative and comfortable Nutritional Appearance: overweight Orientation/consciousness: patient oriented x3 Eyes Pupils: Equal, round and reactive pupils present Neuro Other: Left face mild decreased pin prick and touch General: patient oriented x3, tone normal, moves all extremities and no focal motor deficits Cranial nerves: Yes Equal, round and reactive pupils present, Yes Bilaterally intact EOM present, Yes Nystagmus not present, Yes Normal facial strength present, Yes Midline tongue present and Yes Ability to bilaterally elevate shoulders present Cognition (Neuro): normal cognition Gait exam (Neuro): Antalgic gait present Motor exam (neuro): 5/5 motor strength present throughout and Normal motor muscle tone present throughout Deep tendon reflexes (DTR's): Right triceps reflex intensity grade: 2+, Left triceps reflex intensity grade: 2+, Rt Biceps (C5, C6): 2+, Left biceps reflex intensity grade: 2+, Right brachioradialis reflex intensity grade: 2+, Left brachioradialis reflex intensity grade: 2+, Right patellar reflex intensity grade: 2+ and Left patellar reflex intensity grade: 2+ Coordination: [id number] test normal Orientation What is the (year) (season) (date) (day) (month)?: year, season, date, day and month Where are we (state) (county) (town or city) (hospital) (floor)?: state, county, town or city, hospital/clinic and floor Registration Name of 3 unrelated objects clearly and slowly, then ask patient to repeat all 3 of them. (1st repeat determines score. Make sure they can repeat all three): object 1, object 2 and object 3 Attention & Calculation (CHOOSE ONE) Spell WORLD backwards (DLROW): 5 letters Recall Ask patient to repeat the 3 items from question #3.: object 1 Language Show patient a wristwatch & ask what it is. Repeat for pencil.: watch and pencil Ask the patient to repeat the phrase 'No ifs, ands, or buts' after you.: correct Ask the patient to 'take a piece of paper with their right hand' 'fold paper in half' 'place paper on floor': take paper in right hand, fold paper in half and place paper on floor Print the sentence 'CLOSE YOUR EYES' on a piece. If patient actually closes eyes then score.: followed written direction Give patient a blank piece of paper & ask to write a sentence. Score if it contains a noun & verb.: sentence contains subject and verb Ask patient to copy figure of intersecting pentagons exactly. Score if all 10 angles & 2 intersects are included.: all 10 angles present & 2 are intersected Score Score: 28 Assessment & Plan Assessment & Plan (1) Numbness and tingling of left side of face: Comment: likely related to Rhizotomy Code(s): R20.0 - Anesthesia of skin; R20.2 - Paresthesia of skin Category: Medical (2) Trigeminal neuralgia of left side of face: Comment: residual pain Code(s): G50.0 - Trigeminal neuralgia Category: Medical (3) Cognitive disorder: Comment: MMSE Code(s): F09 - Unspecified mental disorder due to known physiological condition Category: Medical Plan Increase carbamazepine to XR 300mg bid consider decreasing gabapentin dose. MRI brain she did well on MMSE, will monitor cognition Orders: Orders MR head/brain wo con Today F09 - Unspecified mental disorder due to known physiological condition, G50.0 - Trigeminal neuralgia Medications: New carbamazepine ER 200 mg PO BID 60 caps 2RF carbamazepine ER 300 mg PO BID 60 caps 2RF Discontinued carbamazepine Discontinued Reason: Doctor's Order 200 mg PO BID 30 days 60 tabs 1RF Coding Level of Care Code New Pt Level 5 (51669) Complex EM visit Add On G2211 Diagnoses Numbness and tingling of left side of face R20.0; R20.2 Trigeminal neuralgia of left side of face G50.0 Cognitive disorder F09
== END 2024-07-09 14:21 | disposition home or self-care (01) ==
PROVIDERS: PCP Internal Medicine; Visit Provider Psychiatry & Neurology Neurology
DX: R20.0 Anesthesia of skin (principal); R20.2 Paresthesia of skin; G50.0 Trigeminal neuralgia; R41.89 Other symptoms and signs involving cognitive functions and awareness
CPT/HCPCS: 99205; G2211

== ENCOUNTER → 2024-07-09 13:04 | Outpatient (BNVA) | payer OTHER, SELFPAY | PROVIDERS: PCP Internal Medicine; Visit Provider Psychiatry & Neurology Neurology | DX: R20.0 Anesthesia of skin (principal); R20.2 Paresthesia of skin; G50.0 Trigeminal neuralgia; F09 Unspecified mental disorder due to known physiological condition | CPT/HCPCS: 99202 ==

== ENCOUNTER → 2024-07-19 19:54 | Outpatient (BNV) | payer OTHER, SELFPAY | PROVIDERS: PCP Internal Medicine; Visit Provider Radiology Diagnostic Radiology | DX: G50.0 Trigeminal neuralgia (principal) | CPT/HCPCS: 70551 ==

== ENCOUNTER 2024-07-19 19:57 | Outpatient (REF) | payer OTHER, SELFPAY ==
--- NOTE | ~2024-07-19 | MR_ITS ---
EXAMINATION: MR BRAIN WITHOUT CONTRAST CLINICAL INFORMATION: Trigeminal neuralgia; left side of face pain, episodic. COMPARISON: None available. TECHNIQUE: MRI of the brain was obtained using routine sequences without contrast. Trigeminal protocol was utilized with thin section coronal and axial T2 sequences through the 5th nerves. Examination performed on a 1.5 Gissel high-field Siemens magnet. FINDINGS: There is no diffusion restriction. There is no intracranial hemorrhage, acute infarction, mass effect, or edema. Ventricles, sulci, and cisterns are mildly diffusely prominent, in keeping with age-related cerebral and cerebellar volume loss. No shift of midline. No abnormal hemosiderin deposition is identified. Fairly extensive punctate and mildly confluent foci of white matter T2 hyperintensity in the periventricular, subcortical, and hemispheric deep white matter. This finding is nonspecific but most likely relates to moderate to severe small vessel ischemic change. There are numerous bilateral tiny old lacunar type infarcts in the anterior and posterior gangliocapsular regions. Midline structures appear normally formed. The pituitary gland appears normal. Posterior fossa structures appear normal. Cerebellar tonsils are appropriately located. The 5th cranial nerves have normal course and caliber, and normal signal. Meckel's caves have normal signal. The major divisions are unremarkable in appearance. Normal CSF signal in the IACs, prepontine and CP angle cisterns, and labyrinthine structures. 7th and 8th cranial nerves are normal in course and caliber. Major flow voids are preserved within the skull base. The globes and orbital contents demonstrate bilateral lens replacements. Paranasal sinuses are clear bilaterally. Nasal septum is mildly right deviated without spur. Trace fluid in both mastoid tips. Otherwise the mastoids and tympanic cavities are normally aerated. Extracranial soft tissues demonstrate no abnormalities. No suspicious bone marrow changes are evident. Mild to moderate left TM joint degenerative changes. Atlantoaxial joint is normal. Degenerative changes present in the upper cervical spine. MR/MR head/brain wo con IMPRESSION: 1. No evidence of intracranial hemorrhage, acute infarct, mass effect, or edema. 2. Normal noncontrast appearance of both trigeminal nerves and Meckel's caves. Typically, contrast is beneficial in these studies. 3. Moderate to severe changes of small vessel ischemia. 4. Numerous tiny old lacunar type infarcts in the bilateral gangliocapsular regions. 5. Trace fluid in both mastoid tips. Electronically signed by: Manuel Haskins MD 07/20/2024 09:08 AM EDT
== END 2024-07-19 19:58 | disposition home or self-care (01) ==
LOC: HO.MRI 19:57
PROVIDERS: PCP Internal Medicine; Visit Provider Psychiatry & Neurology Neurology
DX: G50.0 Trigeminal neuralgia (principal); F09 Unspecified mental disorder due to known physiological condition
CPT/HCPCS: 70551

== ENCOUNTER 2024-11-19 13:52 | Outpatient (AMB) | payer OTHER, SELFPAY ==
[2024-11-19 14:43] VITALS: BP 140/82; PULSE 64; O2SAT 95; BMI 29.2
--- NOTE | 2024-11-19 14:43 | MHC.OFFVIS ---
Vital Signs 11/19/24 14:43 Height 5 ft 6 in Weight 181 lb BMI 29.2 BP 140/82 H Blood Pressure Location Rt brachial Position Sitting Pulse 64 Pulse Source Pulse Oximeter Pulse Oximetry (%) 95 Oxygen Delivery Method Room Air Intake Visit Reasons: 4 mo follow up Intake Note: Patient presents for follow up MRI done 07/09/24 and med trial Ag Equipment Field Service Technician Required: Yes Ag Equipment Field Service Technician Name: Coral Rico Accompanied by: Spouse Allergies aspirin Adverse Reaction (Unknown, Verified 11/19/24 14:44) stomach upset atorvastatin Adverse Reaction (Unknown, Verified 11/19/24 14:44) significantly elevated LFTs HPI Comments Details: 79y/o female is comes here for evaluation of multiple neurological issues- left trigemial neuralgia, memory issues etc.I increased her cr=arbamazepine XR tp 300mg bid but she increased only 2 days ago and still has pain. History 07/2024-She has h/o left trigeminal neuralgia( V1 ) - she had PrGR( percutaneous retrogasserian Glycerol Rhizotomy) surgery in 2019 - was pain free for 1 year. she saw in 2020 when her pain recurred and also reports numbness in the whole left face. The pain intensity has decreased significantly but has residual numbness, tightness around her left eye and tingling,.The discomfort and numbness are persistent.No electric shock like pain chewing eating cold air etc does not increase the pain. she also reports involuntary spasm of the left side of the face. Cognition- she also reports problems remembering names, places, shot term memory recall etc.she genao sword finding difficulty.she lives with her son and is independent in all her ADLs. [facility] Medical History Cognitive disorder Trigeminal neuralgia of left side of face Numbness and tingling of left side of face Primary osteoarthritis, right shoulder Obesity (BMI 30-39.9) Alzheimer's dementia Asthma Allergic rhinitis Bilateral lower extremity edema Pure hypercholesterolemia Trigeminal neuralgia Benign essential hypertension Surgical History History of surgery History of bladder surgery History of arthroplasty of left knee History of arthroplasty of right knee History of tubal ligation History of cholecystectomy Family History Father Asthma Mother Colon cancer Sister Breast cancer Social History Housing: Apartment Alcohol intake: never Patient Tobacco Use Status: Never used Tobacco e-Cigarette/Vaping Use: Never Used Second Hand Smoke Exposure: Yes service: No Current occupational status: disabled Cognitive needs: No Hearing needs: No Vision needs: Yes Physical Exam Vital Signs: Last Vital Signs Pulse 64 11/19/24 14:43 BP 140/82 H 11/19/24 14:43 Pulse Ox 95 11/19/24 14:43 Oxygen Delivery Method Room Air 11/19/24 14:43 BMI result Body Mass Index 29.2 Const General: cooperative and comfortable Nutritional Appearance: overweight Orientation/consciousness: patient oriented x3 Eyes Pupils: Equal, round and reactive pupils present Neuro Other: Left face mild decreased pin prick and touch General: patient oriented x3, tone normal, moves all extremities and no focal motor deficits Cranial nerves: Yes Equal, round and reactive pupils present, Yes Bilaterally intact EOM present, Yes Nystagmus not present, Yes Normal facial strength present, Yes Midline tongue present and Yes Ability to bilaterally elevate shoulders present Cognition (Neuro): normal cognition Gait exam (Neuro): Antalgic gait present Motor exam (neuro): 5/5 motor strength present throughout and Normal motor muscle tone present throughout Coordination: [id number] test normal Assessment & Plan Assessment & Plan (1) Numbness and tingling of left side of face: Comment: likely related to Rhizotomy Code(s): R20.0 - Anesthesia of skin; R20.2 - Paresthesia of skin Category: Medical (2) Trigeminal neuralgia of left side of face: Comment: residual pain Code(s): G50.0 - Trigeminal neuralgia Category: Medical (3) Cognitive disorder: Comment: MMSE 28/30 Code(s): F09 - Unspecified mental disorder due to known physiological condition Category: Medical Plan carbamazepine to XR 300mg bid( was increased 2 days ago ) - she will call in 10 days - if she still has persistent pain i will increase to 400mg bid consider decreasing gabapentin dose. MRI brain - extensive small vessel disease she did well on MMSE, will monitor cognition Coding Level of Care Code Est Pt Level 4 (95437) Diagnoses Numbness and tingling of left side of face R20.0; R20.2 Trigeminal neuralgia of left side of face G50.0 Cognitive disorder F09
== END 2024-11-19 15:25 | disposition home or self-care (01) ==
LOC: HO.HSMS 13:53
PROVIDERS: PCP Internal Medicine; Visit Provider Psychiatry & Neurology Neurology
DX: R20.0 Anesthesia of skin (principal); R20.2 Paresthesia of skin; G50.0 Trigeminal neuralgia; R41.89 Other symptoms and signs involving cognitive functions and awareness
CPT/HCPCS: 99214

== ENCOUNTER → 2024-11-19 13:52 | Outpatient (BNVA) | payer OTHER, SELFPAY | PROVIDERS: PCP Internal Medicine; Visit Provider Psychiatry & Neurology Neurology | DX: R20.0 Anesthesia of skin (principal); R20.2 Paresthesia of skin; G50.0 Trigeminal neuralgia; F09 Unspecified mental disorder due to known physiological condition | CPT/HCPCS: 99212 ==

== ENCOUNTER 2024-12-11 14:31 | Outpatient (AMB) | payer OTHER, SELFPAY ==
[2024-12-11 14:38] VITALS: BP 134/78; PULSE 60; RESP 18; TEMP 36.3; O2SAT 97; BMI 28.2
--- NOTE | 2024-12-11 14:38 | A.OFFPC_ITS ---
Vital Signs 12/11/24 14:38 Height 5 ft 6 in Weight 174 lb 8 oz BMI 28.2 BP 134/78 Blood Pressure Location Lt brachial Position Sitting Respiration 18 Pulse 60 Pulse Source Pulse Oximeter Temp 97.3 F Temp Source Temporal Artery Scan Pulse Oximetry (%) 97 Oxygen Delivery Method Room Air Intake Visit Reasons: Pre -Op 30 -Maxillofacial & Implant Surgery Allergies aspirin Adverse Reaction (Unknown, Verified 12/11/24 15:19) stomach upset atorvastatin Adverse Reaction (Unknown, Verified 12/11/24 15:19) significantly elevated LFTs Medication List - Last Reconciled 12/11/24 by VALENTÍN Tipton albuterol sulfate 90 mcg/actuation 2 puffs inhalation Q6H PRN amoxicillin 875 mg PO BID 7 days amoxicillin-pot clavulanate 875-125 mg 1 tab PO BID aspirin 81 mg PO DAILY [BACK BRACE As directed] calcium carbonate (Oyster Shell Calcium) 500 mg PO DAILY 90 days carbamazepine ER 300 mg PO BID cholecalciferol (vitamin D3) 25 mcg PO DAILY ezetimibe 10 mg PO DAILY 90 days fluticasone propionate 50 mcg/actuation 1 spray intranasal DAILY gabapentin 600 mg PO TID 30 days guaifenesin 200 mg (5 mL) PO Q4H PRN hydrochlorothiazide 25 mg PO DAILY incontinence pad, liner, disp (Poise Pads) As directed levocetirizine (Xyzal) 5 mg PO DAILY losartan 75 mg (1.5 x 50 mg) PO DAILY metoprolol tartrate 25 mg PO BID 30 days miscellaneous medical supply Back Brace miscellaneous medical supply Quad Cane nebulizers (Compact Compressor Nebulizer) As directed 3 to 4 times a day as needed omeprazole 20 mg PO DAILY 90 days oxybutynin chloride ER 10 mg PO DAILY 90 days polymyxin B sulf-trimethoprim 10,000 unit- 1 mg/mL 1 drp ophthalmic (eye) QID 7 days prednisone 20 mg PO BID [QUAD CANE As directed] rosuvastatin 5 mg PO DAILY 90 days valacyclovir 1,000 mg PO Q8H 7 days Tobacco use date assessed: 12/11/24 Fall risk assessment: 1 Fall in past year Last assessed Fall Risk: 12/11/24 Dental Screening Dental Screen Date: 12/11/24 Did you have a dental visit in the last 12 months?: Yes Did you have a dental problem in the last 6 months where you did not have access to dental care?: No Was dental information given to patient?: Patient has dentist HPI Pre -Op 30 -Maxillofacial & Implant Surgery HPI Details The patient is a 79-year-old female presenting for preop clearance for maxillofacial and implant surgery. Patient of Dr. Aleman. Last seen in office on 03/22/2024. The patient accompanied by son, who helps to translate for the patient. The patient we will be having extractions and implantation with Dr. Chung Elliott [facility] [place] [place]. Due to Dental Caries. Anestheasa: Light IV Sedation. Patient reports history of knee replacement surgery. Denies any adverse reaction from anesthesia. Patient denies any post surgery hypothermia or clotting disorder. The patient is on aspirin, which is encouraged to continue. The patient isn't on any blood thinners. Medical history is significant for benign essential hypertension, asthma, facial palsy, Alzheimer's dementia Patient denies chest pain but reports chest pressure yesterday, denies heart palpitation or dizziness Denies shortness of breath. Denies abdominal pain or change in bowel habits. Reports on and off fluctuation between constipation and soft stools. [facility] Medical History Cognitive disorder Trigeminal neuralgia of left side of face Numbness and tingling of left side of face Primary osteoarthritis, right shoulder Obesity (BMI 30-39.9) Alzheimer's dementia Asthma Allergic rhinitis Bilateral lower extremity edema Pure hypercholesterolemia Trigeminal neuralgia Benign essential hypertension Surgical History History of surgery History of bladder surgery History of arthroplasty of left knee History of arthroplasty of right knee History of tubal ligation History of cholecystectomy Family History Father Asthma Mother Colon cancer Sister Breast cancer Social History Housing: Apartment Alcohol intake: never Patient Tobacco Use Status: Never used Tobacco e-Cigarette/Vaping Use: Never Used Second Hand Smoke Exposure: Yes service: No Current occupational status: disabled Cognitive needs: No Hearing needs: No Vision needs: Yes Questionnaire PHQ-9 Over the last 2 weeks, how often have you been bothered by any of the following problems? 1. Little interest or pleasure in doing things: several days 2. Feeling down, depressed, or hopeless: several days 3. Trouble falling or staying asleep, or sleeping too much: not at all 4. Feeling tired or having little energy: not at all 5. Poor appetite or overeating: not at all 6. Feeling bad about yourself - or that you are a failure or have let yourself or your family down: not at all 7. Trouble concentrating on things, such as reading the newspaper or watching television: not at all 8. Moving or speaking so slowly that other people could have noticed. Or the opposite - being so fidgety or restless that you have been moving around a lot more than usual: not at all 9. Thoughts that you would be better off or of hurting yourself in some way: not at all Total score: 2 Depression Screening Interpretation: Negative Depression Screening Done: Yes 59794 - PHQ-9 Billing: Yes Source: Developed by Drs. Terence Ring, Maci Colunga, Abraham Infante and colleagues, with an educational vernon from [employer]. Thrive Questionnaire Date Thrive assessed: 12/11/24 I am a: Patient What is your living situation today?: I have a steady place to live Within the past 12 months, did the food you bought not last and you didn't have the money to get more?: Never true Within the past 12 months, did you worry whether your food would run out before you got money to buy more?: Never true Do you have trouble paying for medicines?: No Do you have trouble getting transportation to medical appointments?: No Do you have trouble paying your heating and electricity bill?: No Do you have trouble taking care of your child, family member or friend?: No Do you have trouble with day-to-day activities such as bathing, preparing meals, shopping, managing finances, etc.?: No Are you currently unemployed and looking for a job?: No Are you interested in more education?: No Please select the resources that you would like help with: None Currently or been in a relationship where the following occur: No concerns reported THRIVE Score: 0 AUDIT C Alcohol Use Questionnaire (AUDIT-C) 1. How often do you have a drink containing alcohol?: Never 3. How often do you have six or more drinks on one occasion?: Never Total Score: 0 Score Reviewed/Action Taken: Yes SUSHIL-7 AMB Questionnaire SUSHIL-7 Date SUSHIL - 7 assessed: 12/11/24 Feeling nervous, anxious, or on edge: 0 = Not at all Not being able to stop or control worryin = Not at all Worrying too much about different things: 0 = Not at all Trouble relaxin = Not at all Being so restless that it is hard to sit still: 0 = Not at all Becoming easily annoyed or irritable: 0 = Not at all Feeling afraid as if something awful might happen: 0 = Not at all Total SUSHIL-7 score (0-4 normal; 5-9 mild; 10-14 moderate; 15-21 severe): 0 Source: Developed by Drs. Terence Ring, Maci Colunga, Abraham Infante and colleagues, with an educational vernon from [employer]. SUSHIL-7 Assessment Billing SUSHIL-7 Assessment Tool: SUSHIL-7 Assessment 43469 Review of Systems Const Reports headache(s) (On and off) Eyes Denies loss of vision ENT Denies vertigo, Denies dizziness, Reports headache(s) (On and off), Reports nasal congestion and Denies sore throat Card Denies chest pain, Denies leg edema and Denies lightheadedness Resp Denies cough, Denies hemoptysis and Denies wheezing GI Denies abdominal pain, Denies melena, Reports constipation, Denies diarrhea, Reports loose stools and Denies vomiting Denies urinary frequency, Denies dysuria and Denies urinary urgency Musc Denies numbness and Denies tingling Neuro Denies Abnormal speech present, Denies behavioral changes, Denies vertigo, Denies dizziness, Reports headache(s) (On and off), Denies loss of vision, Denies memory loss, Denies numbness and Denies tingling Psych Denies anxiety, Denies behavioral changes, Denies depression, Denies memory loss and Denies panic attacks Khalif/Lymph Denies easy bleeding and Denies easy bruising Aller/Immun Denies wheezing Physical exam (Primary Care) Vital Signs: Last Vital Signs Temp 97.3 F 12/11/24 14:38 Pulse 60 12/11/24 14:38 Resp 18 12/11/24 14:38 BP 134/78 12/11/24 14:38 Pulse Ox 97 12/11/24 14:38 Oxygen Delivery Method Room Air 12/11/24 14:38 BMI result Body Mass Index 28.2 Tobacco/Smoking Status: Tobacco use Status Tobacco use date assessed 12/11/24 12/11/24 14:51 Patient Tobacco Use Status Never used Tobacco 12/11/24 14:51 e-Cigarette/Vaping Use Never Used 12/11/24 14:51 PHQ-9: PHQ-9 Score PHQ-9: Total score 2 12/12/24 00:54 Depression Screening Interpretation: Negative Thrive Assessment: Date of Thrive Assessment Date Thrive assessed 12/11/24 12/11/24 14:51 Currently or been in a relationship where the following occur: No concerns reported Const General: healthy appearing, no acute distress, alert and awake Nutritional Appearance: well nourished HENMT Ears: TM's normal bilaterally General nose exam: Normal nasal mucous membranes and turbinates present Eyes Conjunctivae: conjunctivae normal Sclerae: sclerae normal Pupils: Equal, round and reactive pupils present Neck Neck: Yes no lymphadenopathy and Yes no JVD Thyroid: Thyroid normal Carotids: no bruits Resp Effort & Inspection: normal respiratory effort and not tachypneic Auscultation: no crackles, no rales, no rhonchi and no wheezes Cardio Rate: regular rate Rhythm: regular rhythm Heart sounds: S1 normal heart sound present, S2 normal heart sound present, no murmurs and normal S1 and S2 GI Palpation (GI): Soft to palpation, nontender, no hepatomegaly and no splenomegaly Auscultation: normal bowel sounds Skin General skin exam: no rashes or lesions noted and dry skin Neuro Cranial nerves: Yes Equal, round and reactive pupils present Speech: No Abnormal speech present Gait exam (Neuro): Normal gait present Motor exam (neuro): no tremor noted Extrem Right upper extremity: full ROM Left upper extremity: full ROM Right lower extremity: full ROM; no edema Left lower extremity: full ROM; no edema Psych Mental Status: mental status grossly normal Speech and movement: Normal speech and movement present Affect: normal affect Attitude: cooperative Thought process: Normal thought process present Results Reviewed Results Reviewed: Laboratory Tests 12/11/24 16:04 WBC 6.1 RBC 4.37 Hgb 12.3 Hct 38.2 MCV 87.4 MCH 28.1 MCHC 32.2 RDW 14.6 Plt Count 175 MPV 11.2 Sodium 142 Potassium 3.9 Chloride 105 Carbon Dioxide 30 H Anion Gap 11 L BUN 16 Creatinine 0.78 Estimated GFR > 60 Random Glucose 97 Calcium 9.6 [place] [address] Electrocardiograph Report Draft Patient: Regina Ayala MR#: [id number] : 1945 Acct:[id number] Age/Sex: 79 / F ADM Date: 12/11/24 Loc: HO.LAB Attending Dr: Phoenix LAURA Ordering Physician: Phoenix Jalloh Date of Service: 12/11/24 Procedure(s): ECG 12 lead EKG Accession Number(s): [id number] cc: ~ Test Reason : PREOP Blood Pressure : */* mmHG Vent. Rate : 62 BPM Atrial Rate : 62 BPM P-R Int : 172 ms QRS Dur : 78 ms QT Int : 414 ms P-R-T Axes : 40 7 25 degrees QTcB Int : 420 ms Normal sinus rhythm Normal ECG When compared with ECG of 25-Jun-2024 13:18, No significant change was found Referred By: Phoenix Jalloh Electronically Signed By: Dictated By: Signed By: DD/ 1552 TD/TT: 12/11/24 1554 Mechanical Maintenance Technician: Coding Level of Care Code Est Pt Level 4 (41796) Diagnoses Preoperative clearance Z01.818 Dental caries K02.9 Benign essential hypertension I10 Nonintractable headache, unspecified chronicity pattern, unspecified headache type R51.9 Headache chronicity pattern: unspecified pattern Headache type: unspecified Intractability: not intractable Alzheimer's dementia G30.9; F02.80 Mild intermittent asthma without complication J45.20 Asthma complication type: uncomplicated Asthma persistence: intermittent Asthma severity: mild Trigeminal neuralgia G50.0 Additional Codes SUSHIL-7 Assessment Billing - SUSHIL-7 Assessment Tool: SUSHIL-7 Assessment 91823 ([id number]) PHQ-9 - 63237 - PHQ-9 Billing: Yes ([id number]) Time Spent (min) 41 Assessment & Plan Assessment & Plan (1) Preoperative clearance: Code(s): Z01.818 - Encounter for other preprocedural examination Category: Medical Plan: Patient labs are within normal limits and EKG sinus rhythm without any ischemia. Regarding preop clearance, the patient is at acceptable risk for proposed surgery. Reviewed with the patient that no surgery is completely free of risk and that this examination is to assist the surgeon in reviewing informed consent. (2) Dental caries: Code(s): K02.9 - Dental caries, unspecified Category: Medical Plan: Planned extraction and implantation (3) Benign essential hypertension: Code(s): I10 - Essential (primary) hypertension Category: Medical Plan: Blood pressure 134/78 Reinforced low-salt diet Continue metoprolol tartrate 25 mg b.i.d., losartan 75 mg daily, chlorothiazide 25 mg daily (4) Headache: Code(s): R51.9 - Headache, unspecified Category: Medical Qualifiers: Headache chronicity pattern: unspecified pattern Headache type: unspecified Intractability: not intractable Qualified Code(s): R51.9 - Headache, unspecified Plan: Denies headache today. Patient has a history of headaches that appears to be well managed. She is not on any scheduled medication and is doing fairly well. (5) Alzheimer's dementia: Code(s): G30.9 - Alzheimer's disease, unspecified; F02.80 - Dementia in other diseases classified elsewhere, unspecified severity, without behavioral disturbance, psychotic disturbance, mood disturbance, and anxiety Category: Medical Plan: The patient has a history of dementia, her son is translating for her and she appears to be answering the questions appropriately. Follow up with Neurology as scheduled (6) Asthma: Code(s): J45.909 - Unspecified asthma, uncomplicated Category: Medical Qualifiers: Asthma complication type: uncomplicated Asthma persistence: intermittent Asthma severity: mild Qualified Code(s): J45.20 - Mild intermittent asthma, uncomplicated Plan: Patient reports occasional chest tightness. That might be related to her asthma. Continue rescue inhaler as needed or nebulizer as needed. The patient also has a history of allergic rhinitis which also might be triggering her asthma at times. Encouraged fluticasone propionate 50 mcg/actuation 1 spray nasally daily and Xyzal 5 mg daily. Encouraged fluid hydration and avoid triggers/irritants. (7) Trigeminal neuralgia: Comment: S/P percutaneous retrogasserian glycerol rhizotomy x 2, with only partial and temporary relief Code(s): G50.0 - Trigeminal neuralgia Category: Medical Plan: Denies pain in office, denies numbness. Continue carbamazepine ER 200 mg b.i.d., gabapentin 600 mg t.i.d. follow up with Neurology as scheduled. Orders: Orders Basic Metabolic Panel 12/11/24 Z01.818 - Encounter for other preprocedural examination Complete Blood Count Auto Diff 12/11/24 Z01.818 - Encounter for other preprocedural examination ECG 12 lead EKG 12/11/24 Z01.818 - Encounter for other preprocedural examination
== END 2024-12-11 15:39 | disposition home or self-care (01) ==
LOC: HO.HMCH 14:32
PROVIDERS: PCP Internal Medicine
DX: Z01.818 Encounter for other preprocedural examination (principal); K02.9 Dental caries, unspecified; I10 Essential (primary) hypertension; R51.9 Headache, unspecified; G30.9 Alzheimer's disease, unspecified; F02.80 Dementia in other diseases classified elsewhere, unspecified severity, without behavioral disturbance, psychotic disturbance, mood disturbance, and anxiety; J45.20 Mild intermittent asthma, uncomplicated; G50.0 Trigeminal neuralgia

== ENCOUNTER 2024-12-11 14:31 | Outpatient (REF) | payer OTHER, SELFPAY ==
--- NOTE | 2024-12-11 15:49 | ECG_ITS ---
Test Reason : PREOP Blood Pressure : */* mmHG Vent. Rate : 62 BPM Atrial Rate : 62 BPM P-R Int : 172 ms QRS Dur : 78 ms QT Int : 414 ms P-R-T Axes : 40 7 25 degrees QTcB Int : 420 ms Normal sinus rhythm Normal ECG When compared with ECG of 25-Jun-2024 13:18, No significant change was found Referred By: Phoenix Jalloh Electronically Signed By: IGOR ALVAREZ
[2024-12-11 16:06] LABS: MANUAL DIFF FLAG NO
[2024-12-11 16:31] LABS: Hematocrit 38.2 % (37.0-47.0); Hemoglobin 12.3 g/dl (12.0-16.0); Imm Gran Abs Auto 0.02 X10*3/uL (0.00-0.03); Imm Gran Pct Auto 0.3 % (0.0-0.4); Lymphocytes Absolute Auto 2.8 X10*3/uL (1.2-4.9); Mean Corpuscular HGB Conc 32.2 g/dl (31.0-35.0); Mean Corpuscular Hemoglobin 28.1 pg (27.0-33.0); Mean Corpuscular Volume 87.4 fL (80.0-98.0); NRBC Abs Auto 0.000 X10*3/uL (0.0-0.012); NRBC Pct Auto 0.0 /100WBC (0.0-0.2); Platelet Count 175 X10*3/uL (160-400); Red Blood Count 4.37 X10*6/uL (4.20-5.50); White Blood Count 6.1 X10*3/uL (4.8-10.8)
[2024-12-11 16:58] LABS: Anion Gap 11 (12-20); Blood Urea Nitrogen 16 mg/dL (9-16); Calcium 9.6 mg/dL (8.4-10.2); Carbon Dioxide 30 mmol/L (22-29); Chloride 105 mmol/L (96-108); Estimated Glomerular Filt Rate > 60; Potassium 3.9 mmol/L (3.3-5.1); Sodium 142 mmol/L (135-145)
== END 2024-12-11 14:32 | disposition home or self-care (01) ==
LOC: HO.LAB 14:31
PROVIDERS: PCP Internal Medicine
DX: Z01.818 Encounter for other preprocedural examination (principal); K02.9 Dental caries, unspecified; I10 Essential (primary) hypertension; R51.9 Headache, unspecified; G30.9 Alzheimer's disease, unspecified; F02.80 Dementia in other diseases classified elsewhere, unspecified severity, without behavioral disturbance, psychotic disturbance, mood disturbance, and anxiety; J45.20 Mild intermittent asthma, uncomplicated; G50.0 Trigeminal neuralgia; Z79.899 Other long term (current) drug therapy; Z13.31 Encounter for screening for depression; Z13.39 Encounter for screening examination for other mental health and behavioral disorders
CPT/HCPCS: 36415; 80048; 85025; 93005; 96127; 99212

== ENCOUNTER → 2024-12-11 15:49 | Outpatient (BNV) | payer OTHER, SELFPAY | PROVIDERS: PCP Internal Medicine; Visit Provider Internal Medicine | DX: Z01.810 Encounter for preprocedural cardiovascular examination (principal) | CPT/HCPCS: 93010 ==

== ENCOUNTER 2025-02-15 10:39 | Outpatient (REF) | payer OTHER, SELFPAY ==
[2025-02-15 11:08] LABS: MANUAL DIFF FLAG NO
[2025-02-15 11:48] LABS: Hematocrit 39.3 % (37.0-47.0); Hemoglobin 12.6 g/dl (12.0-16.0); Imm Gran Abs Auto 0.01 X10*3/uL (0.00-0.03); Imm Gran Pct Auto 0.2 % (0.0-0.4); Lymphocytes Absolute Auto 2.7 X10*3/uL (1.2-4.9); Mean Corpuscular HGB Conc 32.1 g/dl (31.0-35.0); Mean Corpuscular Hemoglobin 28.1 pg (27.0-33.0); Mean Corpuscular Volume 87.7 fL (80.0-98.0); NRBC Abs Auto 0.000 X10*3/uL (0.0-0.012); NRBC Pct Auto 0.0 /100WBC (0.0-0.2); Platelet Count 173 X10*3/uL (160-400); Red Blood Count 4.48 X10*6/uL (4.20-5.50); White Blood Count 5.3 X10*3/uL (4.8-10.8)
[2025-02-15 12:16] LABS: Appearance Urine Cloudy; Glucose Urine UA Negative (Negative); PH 5.5 (5.0-9.0); Specific Gravity - Urine 1.020 (1.005-1.025); UMIC TRIGGER UACC YES
[2025-02-15 12:21] LABS: UACC Culture Trigger YES
[2025-02-15 12:35] LABS: Alanine Aminotransferase 29 U/L (0-31); Albumin Level 4.2 g/dL (3.5-5.0); Alkaline Phosphatase 150 U/L (39-117); Anion Gap 9 (12-20); Aspartate Amino Transferase 25 U/L (5-31); Blood Urea Nitrogen 17 mg/dL (9-16); Calcium 9.5 mg/dL (8.4-10.2); Carbon Dioxide 33 mmol/L (22-29); Chloride 105 mmol/L (96-108); Cholesterol 221 mg/dL (<200); Estimated Glomerular Filt Rate > 60; HDL Cholesterol 66 mg/dL (>40); Potassium 4.0 mmol/L (3.3-5.1); Sodium 143 mmol/L (135-145); Total Protein 6.8 g/dL (6.5-8.0); Triglycerides 109 mg/dL (<150)
== END 2025-02-15 10:40 | disposition home or self-care (01) ==
LOC: HO.LAB 10:39
PROVIDERS: PCP Internal Medicine; Visit Provider Internal Medicine
DX: E78.00 Pure hypercholesterolemia, unspecified (principal); D64.9 Anemia, unspecified; E55.9 Vitamin D deficiency, unspecified
CPT/HCPCS: 36415; 80053; 80061; 81001; 82306; 84443; 85025; 87086

== ENCOUNTER 2025-02-20 16:59 | Outpatient (AMB) | payer OTHER, SELFPAY ==
--- NOTE | 2025-02-20 17:02 | A.OFFPC_ITS ---
Vital Signs 02/20/25 17:03 02/20/25 17:28 Height 5 ft 6 in Weight 173 lb 8 oz BMI 28.0 BP 150/64 H 150/94 H Blood Pressure Location Lt brachial Lt brachial Position Sitting Sitting Respiration 18 Pulse 66 Pulse Source Pulse Oximeter Temp 97.1 F Temp Source Temporal Artery Scan Pulse Oximetry (%) 94 Oxygen Delivery Method Room Air Intake Visit Reasons: [facility] 03/04 Carbon Printer Required: No Accompanied by: Son Allergies aspirin Adverse Reaction (Unknown, Verified 02/20/25 17:20) stomach upset atorvastatin Adverse Reaction (Unknown, Verified 02/20/25 17:20) significantly elevated LFTs Medication List - Last Reconciled 02/20/25 by Cisco Aleman MD albuterol sulfate 90 mcg/actuation 2 puffs inhalation Q6H PRN aspirin 81 mg PO DAILY [BACK BRACE As directed] calcium carbonate (Oyster Shell Calcium) 500 mg PO DAILY 90 days carbamazepine ER 300 mg PO BID cholecalciferol (vitamin D3) 25 mcg PO DAILY ezetimibe 10 mg PO DAILY 90 days fluticasone propionate 50 mcg/actuation 1 spray intranasal DAILY gabapentin 600 mg PO TID 30 days hydrochlorothiazide 25 mg PO DAILY incontinence pad, liner, disp (Poise Pads) As directed levocetirizine (Xyzal) 5 mg PO DAILY losartan 75 mg (1.5 x 50 mg) PO DAILY metoprolol tartrate 25 mg PO BID 30 days nebulizers (Compact Compressor Nebulizer) As directed 3 to 4 times a day as nee ded omeprazole 20 mg PO DAILY 90 days oxybutynin chloride ER 10 mg PO DAILY 90 days [QUAD CANE As directed] rosuvastatin 5 mg PO DAILY 90 days Tobacco use date assessed: 02/20/25 Fall risk assessment: No Falls in past year Last assessed Fall Risk: 02/20/25 Dental Screening Dental Screen Date: 02/20/25 Did you have a dental visit in the last 12 months?: Yes Did you have a dental problem in the last 6 months where you did not have access to dental care?: No Was dental information given to patient?: Patient has dentist HPI [facility] 03/04 HPI Details Patient comes in today at the request of Dr. Jaclyn Martinez of [facility] and [facility] for a preoperative medical examination for clearance for surgery and also for her follow up visit She is currently scheduled for bilateral upper eyelid ptosis repair under MAC on 03/04/2025 Patient states that she feels okay She denies any headaches or dizziness Denies any chest pains, no SOB No nausea/vomiting, no abdominal pain No change in bowel habits noted States that she needs her Fluticasone nasal spray Rx refilled She had her follow up labs done a few days ago - to discuss her results [facility] Medical History Cognitive disorder Trigeminal neuralgia of left side of face Numbness and tingling of left side of face Primary osteoarthritis, right shoulder Obesity (BMI 30-39.9) Alzheimer's dementia Asthma Allergic rhinitis Bilateral lower extremity edema Pure hypercholesterolemia Trigeminal neuralgia Benign essential hypertension Surgical History History of surgery History of bladder surgery History of arthroplasty of left knee History of arthroplasty of right knee History of tubal ligation History of cholecystectomy Family History Father Asthma Mother Colon cancer Sister Breast cancer Social History Housing: Apartment Alcohol intake: never Patient Tobacco Use Status: Never used Tobacco e-Cigarette/Vaping Use: Never Used Second Hand Smoke Exposure: Yes service: No Current occupational status: disabled Cognitive needs: No Hearing needs: No Vision needs: Yes Questionnaire Thrive Questionnaire Date Thrive assessed: 12/11/24 SUSHIL-7 AMB Questionnaire SUSHIL-7 Date SUSHIL - 7 assessed: 12/11/24 Source: Developed by Drs. Terence Ring, Maci Colunga, Abraham Infante and colleagues, with an educational vernon from [employer]. Review of Systems Const Denies chills, Denies fatigue, Denies fever(s) and Denies headache(s) (better c ontrolled lately) ENT Denies dysphagia, Denies otalgia (but still has sensation of pressure/fullness/discomfort in the L ear), Denies headache(s) (better controlled lately), Denies neck pain, Denies odynophagia and Denies sore throat Card Denies chest pain, Denies palpitations and Denies dyspnea Resp Denies chest congestion, Denies cough and Denies dyspnea GI Denies abdominal pain, Denies constipation, Denies dysphagia, Denies diarrhea, Denies nausea, Denies odynophagia and Denies vomiting Denies difficulty voiding, Denies nocturia and Denies dysuria Musc Denies back pain and Denies neck pain Skin/Breast Denies rash Neuro Denies headache(s) (better controlled lately) and Reports memory loss (stable) Psych Reports memory loss (stable) Endo Denies fatigue and Denies palpitations Physical exam (Primary Care) Vital Signs: Last Vital Signs Temp 97.1 F 02/20/25 17:03 Pulse 66 02/20/25 17:03 Resp 18 02/20/25 17:03 BP 150/94 H 02/20/25 17:28 Pulse Ox 94 02/20/25 17:03 Oxygen Delivery Method Room Air 02/20/25 17:03 BMI result Body Mass Index 28.0 Tobacco/Smoking Status: Tobacco use Status Tobacco use date assessed 02/20/25 02/20/25 17:07 Patient Tobacco Use Status Never used Tobacco 02/20/25 17:07 e-Cigarette/Vaping Use Never Used 02/20/25 17:07 Thrive Assessment: Date of Thrive Assessment Date Thrive assessed 12/11/24 02/20/25 17:07 Const General: no acute distress and alert HENMT Ears: TM's normal bilaterally and EAC's normal Throat: Yes posterior oropharynx normal and Yes tonsils normal (no TP congestion noted) Neck Neck: Yes supple and No lymphadenopathy Thyroid: Thyroid normal Resp Auscultation: clear to auscultation bilaterally, no rales and no wheezes Cardio Rate: regular rate Rhythm: regular rhythm Heart sounds: no murmurs GI Palpation (GI): Soft to palpation and nontender Auscultation: normal bowel sounds General: Yes no CVA tenderness Back/Spine/Pelvis Back: no CVA tenderness Thoracic/Lumbar Spine: No lumbar spinal tenderness Skin Rashes: no rashes Extrem General: Yes no clubbing, cyanosis or edema Results Reviewed Results Reviewed: Laboratory Tests 02/15/25 02/15/25 11:00 11:06 WBC 5.3 Hgb 12.6 Hct 39.3 Plt Count 173 Sodium 143 Potassium 4.0 Creatinine 0.78 Estimated GFR > 60 Fasting Glucose 89 Calcium 9.5 AST 25 ALT 29 Triglycerides 109 Cholesterol 221 H LDL Cholesterol, Calc 134 H HDL Cholesterol 66 25-OH Vitamin D Total 35.1 TSH 2.15 Ur Specific Huddy 1.020 Urine Protein Negative Urine Glucose (UA) Negative Urine Blood Negative Urine Nitrite Negative Ur Leukocyte Esterase Moderate (2+) H Coding Level of Care Code Est Pt Level 4 (57616) Diagnoses Preoperative examination Z01.818 Ptosis of both upper eyelids H02.403 Trigeminal neuralgia G50.0 Pure hypercholesterolemia E78.00 Benign essential hypertension I10 Mild intermittent asthma without complication J45.20 Asthma severity: mild Asthma persistence: intermittent Asthma complication type: uncomplicated Alzheimer's dementia G30.9; F02.80 Allergic rhinitis, unspecified seasonality, unspecified trigger J30.9 Allergic rhinitis trigger: unspecified Allergic rhinitis seasonality: unspecified Osteopenia, unspecified location M85.80 Osteopenia location: unspecified Primary osteoarthritis, right shoulder M19.011 Obesity (BMI 30-39.9) E66.9 Assessment & Plan Assessment & Plan (1) Preoperative examination: Code(s): Z01.818 - Encounter for other preprocedural examination Category: Medical Plan: Patient presents with acceptable risks for planned low cardiac risk procedure Results of her labs done a few days ago reviewed and discussed with patient (2) Ptosis of both upper eyelids: Code(s): H02.403 - Unspecified ptosis of bilateral eyelids Category: Medical Plan: She is currently scheduled for bilateral upper eyelid ptosis repair under MAC on 03/04/[address] Martinez (3) Trigeminal neuralgia: Comment: S/P percutaneous retrogasserian glycerol rhizotomy x 2, with only partial and temporary relief Code(s): G50.0 - Trigeminal neuralgia Category: Medical Plan: Primarily left-sided - her symptoms have been mostly controlled for a while now She has failed percutaneous retrogasserian glycerol rhizotomy x 2 and was advised by neurosurgery (Dr. Gregory) that additional surgery is no longer an option She was last seen by neurosurgery (Dr. Gregory) on 01/27/21 for follow up and reportedly advised then that her limited treatment options remaining include continuing medication management, repeat glycerol rhizotomy or gamma knife although she was advised that all of these do not really guarantee much in terms of symptom relief at this time She has been referred to a Dr. Medina at [facility] by Dr. Gregory and underwent some type of laser surgery (gamma knife?), which she states provided her with temporary relief but she has not been able to return there for follow up as her insurance has declined to cover any further appointments with Dr. Medina ([id number]) Her son states that he has tried appealing this but was unsuccessful Continue Carbamazepine 200 mg BID, Cyclobenzaprine 5 mg TID and Gabapentin 600 mg TID (4) Pure hypercholesterolemia: Code(s): E78.00 - Pure hypercholesterolemia, unspecified Category: Medical Plan: Reinforced low cholesterol diet Continue Rosuvastatin 5 mg QD and Ezetimibe 10 mg QD Will recheck her labs and fasting lipids in 4 months for follow up (5) Benign essential hypertension: Code(s): I10 - Essential (primary) hypertension Category: Medical Plan: Reinforced low sodium diet - goal is systolic BP of at least 140 to 150 mm or less Her blood pressure is running very high today, confirmed on repeat takes Continue Losartan 50 mg 1.5 tablets (75 mg) QD, Metoprolol 25 mg BID and HCTZ 25 mg QD Will have patient return next week for a nurse visit to recheck her BP and if her BP is much better controlled, we can then formally clear her for surgery (6) Asthma: Code(s): J45.909 - Unspecified asthma, uncomplicated Category: Medical Qualifiers: Asthma severity: mild Asthma persistence: intermittent Asthma complication type: uncomplicated Qualified Code(s): J45.20 - Mild intermittent asthma, uncomplicated Plan: Controlled - continue Albuterol HFA 1 to 2 puffs 4 times a day as needed (7) Alzheimer's dementia: Code(s): G30.9 - Alzheimer's disease, unspecified; F02.80 - Dementia in other diseases classified elsewhere, unspecified severity, without behavioral disturbance, psychotic disturbance, mood disturbance, and anxiety Category: Medical Plan: Patient used to see Dr. Cano for follow up but has not been back to see him in a few years She was referred back to neurology for further management / care and was originally scheduled to see him in July 2023 - not sure if she was seen as we have not received any reports from neurology so far We will pursue neurology referral/evaluation again if needed (8) Allergic rhinitis: Code(s): J30.9 - Allergic rhinitis, unspecified Category: Medical Qualifiers: Allergic rhinitis trigger: unspecified Allergic rhinitis seasonality: unspecified Qualified Code(s): J30.9 - Allergic rhinitis, unspecified Plan: Continue Cetirizine 10 mg QD PRN and Fluticasone 50 mcg nasal spray QD PRN (Rx refilled) (9) Osteopenia: Code(s): M85.80 - Other specified disorders of bone density and structure, unspecified site Category: Medical Qualifiers: Osteopenia location: unspecified Qualified Code(s): M85.80 - Other specified disorders of bone density and structure, unspecified site Plan: Her BMD done in January 2023 revealed (+) osteopenia, with the lowest T score of -1.9 in the femoral neck She was advised to continue with her daily calcium and vitamin D supplements; fall precautions reinforced also Will continue to monitor her BMD regularly every 2 to 3 years (10) Primary osteoarthritis, right shoulder: Code(s): M19.011 - Primary osteoarthritis, right shoulder Category: Medical Plan: Her shoulder x-rays done a few months ago revealed (+) advanced OA changes Follow up with orthopedics as scheduled (11) Obesity (BMI 30-39.9): Code(s): E66.9 - Obesity, unspecified Category: Medical Plan: Reinforced diet; exercise and weight loss are unrealistic given patient's age, sedentary status and multiple comorbidities Plan Patient's blood pressure is running very high today, which is very much in contrast to her BP readings on her previous visits Have advised patient and her son that her blood pressure needs to be much lower and closer to goal before we can clear her fully for surgery, as she is currently not medically optimized We will have her return in 1 week to recheck her blood pressure and if her blood pressure is much lower and more in line with her previous BP readings, we can then formally clear her for surgery To return in 3 months for her annual physical examination Orders: Orders Lipid Panel 3 Months E78.00 - Pure hypercholesterolemia, unspecified TSH reflex Free T4 3 Months E78.00 - Pure hypercholesterolemia, unspecified Vitamin D 25-OH Total 3 Months E55.9 - Vitamin D deficiency, unspecified Complete Blood Count Auto Diff 3 Months D64.9 - Anemia, unspecified Comprehensive [place]. Panel Fast 3 Months E78.00 - Pure hypercholesterolemia, unspecified UA CC w/rflx Micro + Cult 3 Months R30.0 - Dysuria Vitamin B12 and Folate 3 Months E53.8 - Deficiency of other specified B group vitamins Medications: Refilled fluticasone propionate 50 mcg/actuation administer into each nostril 1 spray intranasal DAILY 15.8 mL 0RF
[2025-02-20 17:03] VITALS: BP 150/64; PULSE 66; RESP 18; TEMP 36.2; O2SAT 94; BMI 28.0
[2025-02-20 17:28] VITALS: BP 150/94
== END 2025-02-20 17:35 | disposition home or self-care (01) ==
LOC: HO.HMCH 17:00
PROVIDERS: PCP Internal Medicine; Visit Provider Internal Medicine
DX: G30.9 Alzheimer's disease, unspecified (principal); F02.80 Dementia in other diseases classified elsewhere, unspecified severity, without behavioral disturbance, psychotic disturbance, mood disturbance, and anxiety; E66.9 Obesity, unspecified; Z68.28 Body mass index [BMI] 28.0-28.9, adult; Z01.818 Encounter for other preprocedural examination; H02.403 Unspecified ptosis of bilateral eyelids; G50.0 Trigeminal neuralgia; E78.00 Pure hypercholesterolemia, unspecified; I10 Essential (primary) hypertension; J45.20 Mild intermittent asthma, uncomplicated; J30.9 Allergic rhinitis, unspecified; M85.80 Other specified disorders of bone density and structure, unspecified site

== ENCOUNTER → 2025-02-20 16:59 | Outpatient (BNVA) | payer OTHER, SELFPAY | PROVIDERS: PCP Internal Medicine; Visit Provider Internal Medicine | DX: Z01.818 Encounter for other preprocedural examination (principal); R03.0 Elevated blood-pressure reading, without diagnosis of hypertension; H02.403 Unspecified ptosis of bilateral eyelids; G50.0 Trigeminal neuralgia; E78.00 Pure hypercholesterolemia, unspecified; I10 Essential (primary) hypertension; J45.20 Mild intermittent asthma, uncomplicated; G30.9 Alzheimer's disease, unspecified; F02.80 Dementia in other diseases classified elsewhere, unspecified severity, without behavioral disturbance, psychotic disturbance, mood disturbance, and anxiety; J30.9 Allergic rhinitis, unspecified; M85.80 Other specified disorders of bone density and structure, unspecified site; M19.011 Primary osteoarthritis, right shoulder; E66.9 Obesity, unspecified; Z68.28 Body mass index [BMI] 28.0-28.9, adult | CPT/HCPCS: 99212 ==

== ENCOUNTER 2025-03-20 11:34 | Outpatient (REF) | payer OTHER, SELFPAY ==
[2025-03-20 12:24] LABS: MANUAL DIFF FLAG SCAN; NRBC Abs Auto 0.000 X10*3/uL (0.0-0.012); NRBC Pct Auto 0.0 /100WBC (0.0-0.2); PLT CLUMP 1; SCAN SMEAR FLAG 1
[2025-03-20 12:32] LABS: Appearance Urine Clear; Glucose Urine UA Negative (Negative); PH 5.5 (5.0-9.0); Specific Gravity - Urine 1.020 (1.005-1.025); UMIC TRIGGER UACC YES
[2025-03-20 12:37] LABS: UACC Culture Trigger YES
[2025-03-20 12:59] LABS: Alanine Aminotransferase 17 U/L (0-31); Albumin Level 4.1 g/dL (3.5-5.0); Alkaline Phosphatase 144 U/L (39-117); Anion Gap 14 (12-20); Aspartate Amino Transferase 27 U/L (5-31); Blood Urea Nitrogen 18 mg/dL (9-16); Calcium 9.8 mg/dL (8.4-10.2); Carbon Dioxide 24 mmol/L (22-29); Chloride 109 mmol/L (96-108); Cholesterol 208 mg/dL (<200); Estimated Glomerular Filt Rate > 60; HDL Cholesterol 69 mg/dL (>40); Potassium 3.9 mmol/L (3.3-5.1); Sodium 143 mmol/L (135-145); Total Protein 7.1 g/dL (6.5-8.0); Triglycerides 138 mg/dL (<150)
[2025-03-20 13:28] LABS: Hematocrit 37.6 % (37.0-47.0); Hemoglobin 12.1 g/dl (12.0-16.0); Imm Gran Abs Auto 0.03 X10*3/uL (0.00-0.03); Imm Gran Pct Auto 0.5 % (0.0-0.4); Lymphocytes Absolute Auto 2.6 X10*3/uL (1.2-4.9); Mean Corpuscular HGB Conc 32.2 g/dl (31.0-35.0); Mean Corpuscular Hemoglobin 27.9 pg (27.0-33.0); Mean Corpuscular Volume 86.8 fL (80.0-98.0); Platelet Count 142 X10*3/uL (160-400); Red Blood Count 4.33 X10*6/uL (4.20-5.50); White Blood Count 5.9 X10*3/uL (4.8-10.8)
== END 2025-03-20 11:35 | disposition home or self-care (01) ==
LOC: HO.LAB 11:34
PROVIDERS: PCP Internal Medicine; Visit Provider Internal Medicine
DX: E78.00 Pure hypercholesterolemia, unspecified (principal); D64.9 Anemia, unspecified; R30.0 Dysuria
CPT/HCPCS: 36415; 80053; 80061; 81001; 85025; 87086

== ENCOUNTER 2025-03-21 09:54 | Outpatient (REF) | payer OTHER, SELFPAY | END 2025-03-21 09:55 | disposition home or self-care (01) | LOC: HO.MAMMO 09:54 | PROVIDERS: PCP Internal Medicine; Visit Provider Internal Medicine | DX: Z12.31 Encounter for screening mammogram for malignant neoplasm of breast (principal) | CPT/HCPCS: 77063; 77067 ==

== ENCOUNTER → 2025-03-21 10:15 | Outpatient (BNV) | payer OTHER, SELFPAY | PROVIDERS: PCP Internal Medicine; Visit Provider Internal Medicine | DX: Z12.31 Encounter for screening mammogram for malignant neoplasm of breast (principal) | CPT/HCPCS: 77063; 77067 ==

== ENCOUNTER 2025-03-27 16:24 | Outpatient (AMB) | payer OTHER, SELFPAY ==
[2025-03-27 16:33] VITALS: BP 138/58; PULSE 91; RESP 18; O2SAT 98; BMI 28.3
--- NOTE | 2025-03-27 16:33 | A.OFFPC_ITS ---
Vital Signs 03/27/25 16:33 Height 5 ft 6 in Weight 175 lb 2 oz BMI 28.3 BP 138/58 L Blood Pressure Location Lt brachial Position Sitting Respiration 18 Pulse 91 Pulse Source Pulse Oximeter Temp Source Temporal Artery Scan Pulse Oximetry (%) 98 Oxygen Delivery Method Room Air Intake Visit Reasons: physical Counseling Services Manager Required: Yes Counseling Services Manager Name: [id number]/Rastafari Accompanied by: Self / Same As Patient Allergies aspirin Adverse Reaction (Unknown, Verified 03/27/25 17:05) stomach upset atorvastatin Adverse Reaction (Unknown, Verified 03/27/25 17:05) significantly elevated LFTs Medication List - Last Reconciled 03/27/25 by VALENTÍN Tipton albuterol sulfate 90 mcg/actuation 2 puffs inhalation Q6H PRN aspirin 81 mg PO DAILY [BACK BRACE As directed] calcium carbonate (Oyster Shell Calcium) 500 mg PO DAILY 90 days carbamazepine ER 300 mg PO BID cholecalciferol (vitamin D3) 25 mcg PO DAILY ezetimibe 10 mg PO DAILY 90 days fluticasone propionate 50 mcg/actuation 1 spray intranasal DAILY gabapentin 600 mg PO TID 30 days hydrochlorothiazide 25 mg PO DAILY incontinence pad, liner, disp (Poise Pads) As directed levocetirizine (Xyzal) 5 mg PO DAILY losartan 100 mg PO DAILY 90 days metoprolol tartrate 25 mg PO BID 30 days nebulizers (Compact Compressor Nebulizer) As directed 3 to 4 times a day as needed omeprazole 20 mg PO DAILY 90 days oxybutynin chloride ER 10 mg PO DAILY 90 days [QUAD CANE As directed] rosuvastatin 5 mg PO DAILY 90 days Tobacco use date assessed: 03/27/25 Fall risk assessment: No Falls in past year Last assessed Fall Risk: 03/27/25 Dental Screening Dental Screen Date: 03/27/25 Did you have a dental visit in the last 12 months?: Yes Did you have a dental problem in the last 6 months where you did not have access to dental care?: No Was dental information given to patient?: Patient has dentist HPI physical HPI Details Dentist: up to date Eye: Eye surgery Two weeks ago Snellen: Right: Left: Corrected vision:Yes, glasses STI screening: Colonoscopy: Pap Smer: PHQ-9: Flu:given in office today COVID: x3 Tdap: 2018 Diet:Regular, low fat Exercise: no wants a copy of the physical mail to her [facility] Medical History Cognitive disorder Trigeminal neuralgia of left side of face Numbness and tingling of left side of face Primary osteoarthritis, right shoulder Obesity (BMI 30-39.9) Alzheimer's dementia Asthma Allergic rhinitis Bilateral lower extremity edema Pure hypercholesterolemia Trigeminal neuralgia Benign essential hypertension Surgical History History of surgery History of bladder surgery History of arthroplasty of left knee History of arthroplasty of right knee History of tubal ligation History of cholecystectomy Family History Father Asthma Mother Colon cancer Sister Breast cancer Social History Housing: Apartment Alcohol intake: never Patient Tobacco Use Status: Never used Tobacco e-Cigarette/Vaping Use: Never Used Second Hand Smoke Exposure: Yes service: No Current occupational status: disabled Cognitive needs: No Hearing needs: No Vision needs: Yes Questionnaire Thrive Questionnaire Date Thrive assessed: 12/11/24 SUSHIL-7 AMB Questionnaire SUSHIL-7 Date SUSHIL - 7 assessed: 12/11/24 Source: Developed by Drs. Terence Ring, Maci Colunga, Abraham Infante and colleagues, with an educational vernon from [employer]. Physical exam (Primary Care) Vital Signs: Last Vital Signs Pulse 91 03/27/25 16:33 Resp 18 03/27/25 16:33 BP 138/58 L 03/27/25 16:33 Pulse Ox 98 03/27/25 16:33 Oxygen Delivery Method Room Air 03/27/25 16:33 BMI result Body Mass Index 28.3 Tobacco/Smoking Status: Tobacco use Status Tobacco use date assessed 03/27/25 03/27/25 16:36 Patient Tobacco Use Status Never used Tobacco 03/27/25 16:36 e-Cigarette/Vaping Use Never Used 03/27/25 16:36 Thrive Assessment: Date of Thrive Assessment Date Thrive assessed 12/11/24 03/27/25 16:36 Office Procedures Flu Questionnaire Does the patient have a severe egg allergy?: No Does the patient have severe life threatening allergies?: No Does the patient have a fever or illness today?: No Has the patient ever had Guillain-[place] Syndrome?: No Has the patient ever had any past reaction to a flu shot?: No Immunizations Fluarix [id number] (PF) 45 mcg (15 mcg x 3)/0.5 mL IM syringe Performing Provider: VALENTÍN Tipton [facility] Administered by: Maite Edwards CMA on 03/27/25 17:14 Dose Route Admin Location Dispensed Lot Number Expiration Date NDC Press Tender Smoke Signal 0.5 mL IM Left Deltoid 0.5 mL [id number] 11/05/25 19251-143-07 [id number] VIS Given Date VIS Provided VIS Publication Date 03/27/25 Single Vaccine 24 Eligibility Eligibility Date Funding Source Not [facility] Eligible 03/27/25 Private Coding Assessment & Plan Assessment & Plan Orders: Orders Influenza [id number] Immunization Today Z23 - Encounter for immunization Medications: Discontinued Fluarix Triv [id number] (PF) (flu vacc [id number] 6mos up(PF)) Discontinued Reason: Order 0.5 mL IM ONCE 0.5 mL 0RF NS Z23 - Encounter for immunization
== END 2025-03-27 17:28 | disposition home or self-care (01) ==
LOC: HO.HMCH 16:24
PROVIDERS: PCP Internal Medicine
DX: Z23 Encounter for immunization (principal)

== ENCOUNTER 2025-04-11 07:08 | Outpatient (AMB) | payer OTHER, SELFPAY ==
[2025-04-11 07:26] VITALS: BP 160/80; PULSE 62; O2SAT 97; BMI 28.6
--- NOTE | 2025-04-11 07:26 | A.OFFVIS_ITS ---
Vital Signs 04/11/25 07:26 Height 5 ft 6 in Weight 177 lb 6 oz BMI 28.6 BP 160/80 H Blood Pressure Location Rt brachial Position Sitting Pulse 62 Pulse Source Pulse Oximeter Pulse Oximetry (%) 97 Oxygen Delivery Method Room Air Intake Visit Reasons: 4mnth follow up Intake Note: Follow up cognitive disorder, trigeminal neuralgia and anesthesia of skin Clip Loading Machine Adjuster Required: Yes Clip Loading Machine Adjuster Services: Clip Loading Machine Adjuster Offered & Declined Clip Loading Machine Adjuster Name: Son to interpret Accompanied by: Son Allergies aspirin Adverse Reaction (Unknown, Verified 04/11/25 07:26) stomach upset atorvastatin Adverse Reaction (Unknown, Verified 04/11/25 07:26) significantly elevated LFTs Medication List - Last Reconciled 04/11/25 by Sherri Salinas MD albuterol sulfate 90 mcg/actuation 2 puffs inhalation Q6H PRN aspirin 81 mg PO DAILY [BACK BRACE As directed] calcium carbonate (Oyster Shell Calcium) 500 mg PO DAILY 90 days carbamazepine ER 300 mg PO BID cholecalciferol (vitamin D3) 25 mcg PO DAILY ezetimibe 10 mg PO DAILY 90 days fluticasone propionate 50 mcg/actuation 1 spray intranasal DAILY gabapentin 1/2 tab qam and q noon 1 tab qhs orally; 30 days hydrochlorothiazide 25 mg PO DAILY incontinence pad, liner, disp (Poise Pads) As directed levocetirizine (Xyzal) 5 mg PO DAILY losartan 100 mg PO DAILY 90 days metoprolol tartrate 25 mg PO BID 30 days nebulizers (Compact Compressor Nebulizer) As directed 3 to 4 times a day as needed omeprazole 20 mg PO DAILY 90 days oxybutynin chloride ER 10 mg PO DAILY 90 days [QUAD CANE As directed] rosuvastatin 5 mg PO DAILY 90 days HPI Comments Details: 79y/o female is comes here for evaluation of multiple neurological issues- left trigemial neuralgia, memory issues etc.she is on carbamazepine XR tp 300mg bid and gabapentin 600mg tid The pain is better but she feels the medicine is too strong - she feels off balance and drowsy History 07/2024-She has h/o left trigeminal neuralgia( V1 ) - she had PrGR( percutaneous retrogasserian Glycerol Rhizotomy) surgery in 2019 - was pain free for 1 year. she saw in 2020 when her pain recurred and also reports numbness in the whole left face. The pain intensity has decreased significantly but has residual numbness, tightness around her left eye and tingling,.The discomfort and numbness are persistent.No electric shock like pain chewing eating cold air etc does not increase the pain. she also reports involuntary spasm of the left side of the face. Cognition- she also reports problems remembering names, places, shot term memory recall etc.she genao sword finding difficulty.she lives with her son and is independent in all her ADLs. [facility] Medical History Cognitive disorder Trigeminal neuralgia of left side of face Numbness and tingling of left side of face Primary osteoarthritis, right shoulder Obesity (BMI 30-39.9) Alzheimer's dementia Asthma Allergic rhinitis Bilateral lower extremity edema Pure hypercholesterolemia Trigeminal neuralgia Benign essential hypertension Surgical History History of surgery History of bladder surgery History of arthroplasty of left knee History of arthroplasty of right knee History of tubal ligation History of cholecystectomy Family History Father Asthma Mother Colon cancer Sister Breast cancer Social History Housing: Apartment Alcohol intake: never Patient Tobacco Use Status: Never used Tobacco e-Cigarette/Vaping Use: Never Used Second Hand Smoke Exposure: Yes service: No Current occupational status: disabled Cognitive needs: No Hearing needs: No Vision needs: Yes Physical Exam Vital Signs: Last Vital Signs Pulse 62 04/11/25 07:26 BP 160/80 H 04/11/25 07:26 Pulse Ox 97 04/11/25 07:26 Oxygen Delivery Method Room Air 04/11/25 07:26 BMI result Body Mass Index 28.6 Const General: cooperative and comfortable Nutritional Appearance: overweight Orientation/consciousness: patient oriented x3 Eyes Pupils: Equal, round and reactive pupils present Neuro Other: Left face mild decreased pin prick and touch General: patient oriented x3, tone normal, moves all extremities and no focal motor deficits Cranial nerves: Yes Equal, round and reactive pupils present, Yes Bilaterally intact EOM present, Yes Nystagmus not present, Yes Normal facial strength present, Yes Midline tongue present and Yes Ability to bilaterally elevate shoulders present Cognition (Neuro): normal cognition Gait exam (Neuro): Antalgic gait present Motor exam (neuro): 5/5 motor strength present throughout and Normal motor muscle tone present throughout Coordination: [id number] test normal Assessment & Plan Assessment & Plan (1) Numbness and tingling of left side of face: Comment: likely related to Rhizotomy Code(s): R20.0 - Anesthesia of skin; R20.2 - Paresthesia of skin Category: Medical (2) Trigeminal neuralgia of left side of face: Comment: residual pain Code(s): G50.0 - Trigeminal neuralgia Category: Medical (3) Cognitive disorder: Comment: MMSE Code(s): F09 - Unspecified mental disorder due to known physiological condition Category: Medical Plan carbamazepine to XR 300mg bid Decrease gabapentin 600mg tabs 1/2-1/2 -1 to improve daytime functioning. MRI brain - extensive small vessel disease she did well on MMSE, will monitor cognition Medications: Changed From gabapentin 600 mg PO TID 30 days 90 tabs 0RF To gabapentin 1/2 tab qam and q noon 1 tab qhs orally; 60 tabs 3RF 30 days Coding Level of Care Code Est Pt Level 4 (35267) Complex visit Add On G2211 Diagnoses Numbness and tingling of left side of face R20.0; R20.2 Trigeminal neuralgia of left side of face G50.0 Cognitive disorder F09
== END 2025-04-11 08:09 | disposition home or self-care (01) ==
LOC: HO.HSMS 07:09
PROVIDERS: PCP Internal Medicine; Visit Provider Psychiatry & Neurology Neurology
DX: R20.0 Anesthesia of skin (principal); R20.2 Paresthesia of skin; G50.0 Trigeminal neuralgia; R41.89 Other symptoms and signs involving cognitive functions and awareness
CPT/HCPCS: 99214; G2211

== ENCOUNTER → 2025-04-11 07:08 | Outpatient (BNVA) | payer OTHER, SELFPAY | PROVIDERS: PCP Internal Medicine; Visit Provider Psychiatry & Neurology Neurology | DX: R20.0 Anesthesia of skin (principal); R20.2 Paresthesia of skin; G50.0 Trigeminal neuralgia; F09 Unspecified mental disorder due to known physiological condition | CPT/HCPCS: 99212 ==